=== PATIENT | female | born 1945 | race Caucasian/White ===

== ENCOUNTER 2018-05-30 03:44 | Outpatient (RCR) | payer MEDICARE, OTHER, SELFPAY | END 2018-05-30 23:59 | disposition home or self-care (01) | LOC: PRC 03:44 | PROVIDERS: PCP Physician Assistant Medical; Visit Provider Physician Assistant Medical | DX: J44.9 Chronic obstructive pulmonary disease, unspecified (principal); Z53.8 Procedure and treatment not carried out for other reasons ==

== ENCOUNTER → 2018-06-23 13:33 | Outpatient (BNVA) | payer MEDICARE, OTHER, SELFPAY | PROVIDERS: Visit Provider Student in an Organized Health Care Education/Training Program | DX: M70.62 Trochanteric bursitis, left hip (principal) | CPT/HCPCS: 20610; 99213; J1040 ==

== ENCOUNTER 2018-08-01 14:35 | Emergency (ER) | payer MEDICARE, OTHER, SELFPAY ==
[2018-08-01 14:52] VITALS: BP 126/60; PULSE 89; RESP 20; TEMP 36.7; O2SAT 97
--- NOTE | 2018-08-01 15:27 | DI.RAD_ITS ---
SYMPTOM/DIAGNOSIS: FELL, PAIN, FOREARM SWELLING RIGHT ANKLE: Three views. There is a nondisplaced transverse fracture through the medial malleolus. There is an oblique nondisplaced fracture of the distal fibula. On the lateral view, there does appear to be a nondisplaced fracture of the posterior malleolus. The findings are consistent with a trimalleolar fracture. The ankle joint is otherwise well maintained. The bones appear mildly osteopenic. There is soft tissue swelling about the ankle, particularly laterally. No radiopaque foreign bodies are seen in the soft tissues. IMPRESSION: Nondisplaced trimalleolar fracture of the right ankle. RIGHT FOREARM: Two views. No acute fracture or dislocation is seen. The bones appear mildly osteopenic. There is soft tissue swelling about the proximal forearm. No radiopaque foreign bodies are present. IMPRESSION: No acute fracture or dislocation.
--- NOTE | 2018-08-01 16:50 | DI.VRAD_ITS ---
EXAM: XR Right Ankle Complete, 3 or more Views EXAM DATE/TIME: 08/01/2018 3:29 PM CLINICAL HISTORY: 72 years old, female; Pain; Ankle; Right TECHNIQUE: XR Right ankle 3 or more views. COMPARISON: No relevant prior studies available. FINDINGS: Bones/joints: Nondisplaced oblique fracture of the distal fibula metaphysis. Nondisplaced transverse fracture of the medial malleolus. Nondisplaced fracture the posterior tibial malleolus. Mild osteopenia. Soft tissues: Swelling of the lateral ankle soft tissues. IMPRESSION: Nondisplaced trimalleolar fracture. Dictated and Authenticated by: Jarrell Biswas MD. Ordering:SANDRA REED MD
--- NOTE | 2018-08-01 16:51 | DI.VRAD_ITS ---
EXAM: XR Right Forearm, 2 Views EXAM DATE/TIME: 08/01/2018 3:29 PM CLINICAL HISTORY: 72 years old, female; Pain; Lower or forearm; Right TECHNIQUE: XR Right forearm 2 views. COMPARISON: No relevant prior studies available. FINDINGS: Bones/joints: Mild osteopenia. No acute fracture. Degenerative changes at the elbow and wrist. Soft tissues: Swelling of the proximal forearm soft tissues. IMPRESSION: No fracture. Dictated and Authenticated by: Jarrell Biswas MD. Ordering:SANDRA REED MD
--- NOTE | 2018-08-01 18:02 | ED.GENADUL_ITS ---
Discharge Plan Disposition Patient Disposition: HOME Condition: Stable Discharge Details Chief Complaint: Orthopedic Clinical Impression: Closed trimalleolar fracture of right ankle, Contusion of arm, right Primary Care Provider: Tom Fuchs ED Provider: Koby Blankenship Home Meds and New Rx's Prescriptions: Continue cyclosporine [Restasis] 1 EACH dropperette 1 drp Ophthalmic BID RF: 0 citalopram 10 MG tablet 10 mg PO DAILY RF: 0 mometasone-formoterol [Dulera] 8.8 GM HFA aerosol inhaler 2 puff Inhalation BID RF: 0 alendronate 70 MG tablet 1 tab PO DIRECTED RF: 0 glucosamine cervantes 2KCl-chondroit [Glucosamine Sulf-Chondroitin] 1 EACH capsule 1 cap PO DAILY RF: 0 tiotropium-olodaterol [Stiolto Respimat] 4 GM mist 2.5 gm Inhalation DAILY RF: 0 gabapentin 300 MG capsule 300 mg PO HS RF: 0 acetaminophen [Tylenol] 325 MG tablet 325 mg PO Q4H PRN PRNRF: 0 calcium carbonate [Oyster Shell Calcium 500] 1.25 GM tablet 0.5 gm PO DAILY RF: 0 chlorthalidone 25 mg Tablet 0.5 tab PO DAILY RF: 0 aspirin [Aspir-81] 81 mg Tablet,Delayed Release (Dr/Ec) 1 tab PO DAILY RF: 0 Discharge Instructions Instructions: Ankle Fracture (ED), Contusion in Adults (ED), Hematoma (ED) Additional Instructions: Please keep right lower extremity elevated. Keep a walking boot on at all times and remain nonweightbearing as much as possible. It is encouraged that you use a walker or other assistive device to prevent falls. Refer to return to the emergency department for any new or worsening symptoms. Referrals: Toino Aguilar MD [ [facility]FF [facility]YSICIAN] - (Call the office on Saturday morning for arrangement of follow-up appointment) Discharge Data Discharge Date/Time-TO BE ENTERED AT DEPARTURE: 08/01/18 18:39 Medical Decision Making Patient presenting to the emergency department for chief complaint of trip and fall with right ankle and right forearm swelling and pain. Patient states that pain is very minimal to no pain in the upper arm but the right ankle is only painful when she puts weight on it which she is unable to fully stand on it. Patient denies any other injury including head neck back pain chest pain shortness of breath or syncope. Physical exam is positive for significant ecchymosis to the proximal ulna and lateral malleolus tenderness ecchymosis and swelling. Plan to perform radiological imaging for concern of fracture. Review of forearm imaging shows no acute findings but review of ankle imaging shows nondisplaced trimalleolar fracture. Called and spoke with Dr. Aguilar whom recommended patient be placed in a walking boot due to other medical comorbidities and concern of possible fall with hip or worsening injury. He recommended that patient use a walker and remain nonweightbearing as much as possible but if patient felt like she was going to have a fall that she may put minimal weight on the foot to prevent falling. Patient stated that she was more than fine taking [id number] pain medication and stated that she did not want anything stronger at this time. Patient was encouraged to return for any new or worsening symptoms otherwise to call the orthopedic office on Saturday morning for arrangement of follow-up appointment. HPI General Mode of arrival: wheelchair . Date/Time Provider Initiated Documentation: 08/01/18 14:54 . Limitations to Documentation: no limitations . Information obtained by: patient and RN notes reviewed . History of Present Illness 72 year old F presents to the emergency department with the chief complaint of Ankle pain, described as moderate, with intensity rated at 5. Quality is described as sharp, and is localized to the right and lower extremity. Patient started experiencing this hour(s) (1) and it has been constant. Immobilization improves symptom(s), and Rest improves symptom(s), Movement worsens symptoms . Patient did receive the following treatments prior to arrival, none Related Data Home Medications Medication Instructions Recorded Confirmed alendronate 1 tab PO DIRECTED 05/10/14 08/01/18 glucosamine cervantes 2KCl-chondroit 1 cap PO DAILY 05/10/14 08/01/18 [Glucosamine Sulf-Chondroitin] tiotropium-olodaterol [Stiolto 2.5 gm INHALATION DAILY 03/06/17 08/01/18 Respimat] cyclosporine [Restasis] 1 drp OPHTHALMIC BID drp 05/15/17 08/01/18 citalopram 10 mg PO DAILY tab-cap 11/20/17 08/01/18 mometasone-formoterol [Dulera] 2 puff INHALATION BID inhaler 11/20/17 08/01/18 gabapentin 300 mg PO HS 01/05/18 08/01/18 acetaminophen [Tylenol] 325 mg PO Q4H PRN PRN tab 01/07/18 08/01/18 calcium carbonate [Oyster Shell 0.5 gm PO DAILY tab 01/07/18 08/01/18 Calcium 500] aspirin [Aspir-81] 1 tab PO DAILY 08/01/18 08/01/18 chlorthalidone 0.5 tab PO DAILY 08/01/18 08/01/18 Previous Rx's Medication Instructions Recorded acetaminophen [Tylenol] 325 mg PO Q4H PRN PRN tab 01/07/18 calcium carbonate [Oyster Shell 0.5 gm PO DAILY tab 01/07/18 Calcium 500] Allergies Allergy/AdvReac Type Severity Reaction Status Date / Time Sulfa (Sulfonamide Allergy Intermediate Hives Unverified 08/01/18 14:58 Antibiotics) General Stated Complaint: Orthopedic MOIRA: 4 Review of Systems Constitutional Reports system reviewed and no additional complaints, except as docu Cardiovascular Reports system reviewed and no additional complaints, except as docu Respiratory Reports system reviewed and no additional complaints, except as docu Musculoskeletal Reports as per HPI Neurologic Denies sensory deficit PFS Social History Smoking/Tobacco Use Status: Never Exam Const General: not in acute distress and not diaphoretic Orientation: alert, awake and oriented x3 Neck Neck: normal visual inspection, full ROM and nontender Resp Effort & Inspection: normal respiratory effort and able to speak in complete sentences Cardio Rate: regular rate Rhythm: regular rhythm Back/Spine/Pelvis Back: No back tenderness Extrem General: normal capillary refill Right upper extremity: full ROM, shoulder/upper arm Details: normal to inspection, elbow/forearm Details: tenderness Location: proximal forearm, normal ROM and ecchymosis (Proximal ulna), wrist Details: normal to inspection and hand Details: normal to inspection Right lower extremity: knee Details: normal to inspection; no tenderness, ankle Details: tenderness Location: of the lateral malleolus, swelling Details: laterally, abnormal ROM Details: pain with active ROM and ecchymosis (Patient will) and foot Details: normal capillary refill, normal to inspection and toes with normal ROM; no tenderness Course Vital Signs Temperature 36.7 C 08/01/18 14:52 Pulse 89 08/01/18 14:52 Respiratory Rate 20 11/02/18 14:52 Blood Pressure 126/60 08/01/18 14:52 Pulse Oximetry 97 08/01/18 14:52 Temperature 36.7 C 08/01/18 14:52 Temperature Source Temporal Artery Scan 08/01/18 14:52 Pulse 89 08/01/18 14:52 Respiratory Rate 20 08/01/18 14:52 Respiratory Effort Non-Labored 08/01/18 14:57 Blood Pressure 126/60 08/01/18 14:52 Blood Pressure Position Sitting 08/01/18 14:52 Pulse Oximetry 97 08/01/18 14:52 Oxygen Delivery Method Nasal Cannula 08/01/18 14:52 Oxygen Flow Rate 2 08/01/18 14:52 Pain Level 3 08/01/18 14:52
--- NOTE | 2018-08-03 14:30 | NUR.NOTE ---
Nursing Note: Patient called stating she is having increased pain on the bottom of her foot and could it be from the wrap is wrinkled. Spoke with Dr. Merari Quiñonez and called the patient back. Told here that it is possible that the wrap is wrinkled, it could be from the fracture. We would need to evaluate her to see what the problem is. She is welcome to return for us to look at it. Kailyn Mojica.
== END 2018-08-01 18:39 | disposition home or self-care (01) ==
PROVIDERS: Emergency Provider Nurse Practitioner Family; PCP Physician Assistant Medical
DX: S82.854A Nondisplaced trimalleolar fracture of right lower leg, initial encounter for closed fracture (principal); S40.021A Contusion of right upper arm, initial encounter; W01.0XXA Fall on same level from slipping, tripping and stumbling without subsequent striking against object, initial encounter
CPT/HCPCS: 27786; 99283; 73090; 73610; 99282; L4361

== ENCOUNTER 2018-08-03 15:29 | Emergency (ER) | payer MEDICARE, OTHER, SELFPAY ==
[2018-08-03 15:59] VITALS: BP 134/55; PULSE 98; RESP 18; O2SAT 97
--- NOTE | 2018-08-03 16:39 | W.ED.GENAD ---
Discharge Plan Disposition Patient Disposition: HOME Condition: Fair Discharge Details Chief Complaint: MATERIALS MGMT TECH Clinical Impression: Ankle fracture, Abrasion of labia Primary Care Provider: Tom Fuchs ED Provider: Jeaneth Eric Home Meds and New Rx's Prescriptions: Continue cyclosporine [Restasis] 1 EACH dropperette 1 drp Ophthalmic BID RF: 0 citalopram 10 MG tablet 10 mg PO DAILY RF: 0 mometasone-formoterol [Dulera] 8.8 GM HFA aerosol inhaler 2 puff Inhalation BID RF: 0 alendronate 70 MG tablet 1 tab PO DIRECTED RF: 0 glucosamine cervantes 2KCl-chondroit [Glucosamine Sulf-Chondroitin] 1 EACH capsule 1 cap PO DAILY RF: 0 tiotropium-olodaterol [Stiolto Respimat] 4 GM mist 2.5 gm Inhalation DAILY RF: 0 gabapentin 300 MG capsule 300 mg PO HS RF: 0 acetaminophen [Tylenol] 325 MG tablet 325 mg PO Q4H PRN PRNRF: 0 calcium carbonate [Oyster Shell Calcium 500] 1.25 GM tablet 0.5 gm PO DAILY RF: 0 chlorthalidone 25 mg Tablet 0.5 tab PO DAILY RF: 0 aspirin [Aspir-81] 81 mg Tablet,Delayed Release (Dr/Ec) 1 tab PO DAILY RF: 0 Discharge Instructions Instructions: Abrasion (ED) Additional Instructions: Encourage hydration. Encourage high protein diet. You have an abrasion to her external genitalia which is likely where your bleeding was coming from. However, if you notice increased bleeding, fever/chills abdominal pain, vaginal discharge or the new/worsening symptoms please seek care urgently once again this area clean. And no blood was noted in the vagina In regard to your ankle pain, please use the boot as instructed. You may remove this extra axis appear discussed. Encourage elevation. Please contact orthopedics as instructed tomorrow to schedule follow-up appointment. Referrals: Tom Fuchs PA [Primary Care Provider] - Discharge Data Discharge Date/Time-TO BE ENTERED AT DEPARTURE: 08/03/18 17:56 Medical Decision Making Patient is 72-year-old female, coming by her daughter, with chief complaint of blood noted when wiping perineal area as well as right-sided foot pain. Patient was seen here 2 days ago which time she was diagnosed with a ankle fracture. She feels at this point that the socket was placed in the boot is uncomfortable. She has been too nervous to attempt to replace this herself. She denies any altered sensation in the foot. Reports that her pain has improved in the ankle. Took one Aleve today which should help with her discomfort. No is able to open the boot, remove the sock and see where there is focal irritation from the ridges on the nonskid socks. Advised that she remove this at this time and replaced once home with a softer, flat her sock. I reinforced boot care reviewed with the patient how to be able to remove this and replace it at home. Exam is notable for large amount of ecchymosis or. The swelling seems to be vastly improved from previous description She also reports that she noted some blood while wiping today just prior to arrival. Is concerned this may have been vaginal. Denies seeing any blood in the urine. No blood in her bowel movement today. Denies any perineal discomfort. Did fall on this area when she suffered her ankle fracture but did not noted any blood until this time. Exam was performed, no blood is noted in the vaginal vault. However, at the 2 o'clock position exteriorly on the labia, I do note a very superficial abrasion that does have a small amount of blood was wiped with a gauze. She feels that she may have scratched herself with her fingernails. Most likely the source of the small amount of blood she noted on the toilet paper. I do not see any actual intravaginal discharge, no blood noted from cervix. No intravaginal lesions. Discussed findinsg with the patient. Advised on care for her abrasion. She believes that this was self inflicted. Advised on signs of infection. She will f/u with PCP. She was given strict precautions. Ankle care as previously advised, reinforced the care of the boot. All of her questions and concerns were addressed, she is in agreement with this plan. She will seek care urgently once again if she develops new/worsening symptoms. HPI General Mode of arrival: ambulatory. Date/Time Provider Initiated Documentation: 08/03/18 15:54. Limitations to Documentation: no limitations. Information obtained by: patient and family. History of Present Illness 72 year old F presents to the emergency department with the chief complaint of right foot pain, vaginal bleeding, described as mild, with intensity rated at 3. Quality is described as aching (reports that she feels like her sock is bunched in her boot causing discomfort ), and is localized to the right and lower extremity. Patient reports no radiation. Patient started experiencing this day(s) and it has been constant. No relieving factors improve symptom(s), No exacerbating factors reported . Patient notes denies cough, diaphoresis, fever/chills, headaches, nausea/vomiting, rash and shortness of breath. Patient did receive the following treatments prior to arrival, none Related Data Home Medications Medication Instructions Recorded Confirmed alendronate 1 tab PO DIRECTED 05/10/14 08/01/18 glucosamine cervantes 2KCl-chondroit 1 cap PO DAILY 05/10/14 08/01/18 [Glucosamine Sulf-Chondroitin] tiotropium-olodaterol [Stiolto 2.5 gm INHALATION DAILY 03/06/17 08/01/18 Respimat] cyclosporine [Restasis] 1 drp OPHTHALMIC BID drp 05/15/17 08/01/18 citalopram 10 mg PO DAILY tab-cap 11/20/17 08/01/18 mometasone-formoterol [Dulera] 2 puff INHALATION BID inhaler 11/20/17 08/01/18 gabapentin 300 mg PO HS 01/05/18 08/01/18 acetaminophen [Tylenol] 325 mg PO Q4H PRN PRN tab 01/07/18 08/01/18 calcium carbonate [Oyster Shell 0.5 gm PO DAILY tab 01/07/18 08/01/18 Calcium 500] aspirin [Aspir-81] 1 tab PO DAILY 08/01/18 08/01/18 chlorthalidone 0.5 tab PO DAILY 08/01/18 08/01/18 Previous Rx's Medication Instructions Recorded acetaminophen [Tylenol] 325 mg PO Q4H PRN PRN tab 01/07/18 calcium carbonate [Oyster Shell 0.5 gm PO DAILY tab 01/07/18 Calcium 500] Allergies Allergy/AdvReac Type Severity Reaction Status Date / Time Sulfa (Sulfonamide Allergy Intermediate Hives Unverified 08/01/18 14:58 Antibiotics) General Stated Complaint: MATERIALS MGMT TECH MOIRA: 4 Review of Systems Constitutional Reports as per HPI and Denies weakness Cardiovascular Denies chest pain and Denies dyspnea Respiratory Reports as per HPI, Denies cough and Denies dyspnea Gastrointestinal Denies abdominal pain, Denies change in bowel habits, Denies nausea and Denies vomiting Genitourinary Reports as per HPI, Denies hematuria, Denies urinary frequency, Denies difficulty voiding, Denies genital lesions, Denies dyspareunia, Denies dysuria, Denies flank pain, Denies urinary hesitancy, Denies urinary urgency and Reports vaginal discharge (patient notes scant amount of blood on tissue after wiping after urination, none in the urine. Feels this is from vaginal bleeding) Musculoskeletal Reports as per HPI, Denies back pain, Denies numbness and Denies tingling Integumentary/Breasts Reports as per HPI and Reports other (has large amount of ecchymosis to the right ankle and foot associated with recent trauma and fracture) Neurologic Denies numbness, Denies radicular pain, Denies tingling, Denies paresthesias and Denies weakness [facility] Social History Smoking/Tobacco Use Status: Never Exam Const General: cooperative, healthy appearing, comfortable, no acute distress, well developed and well groomed Nutritional Appearance: average body habitus and well nourished Orientation: alert and awake Resp Effort & Inspection: normal respiratory effort, able to speak in complete sentences and no respiratory distress Auscultation: clear to auscultation bilaterally, no rales, no rhonchi and no wheezes Cardio Rate: regular rate Rhythm: regular rhythm Heart Sounds: S1 normal and S2 normal GI Inspection: normal to inspection and non-distended Palpation: soft, no hepatosplenomegaly, no aortic enlargement, not firm, no guarding, not rigid and nontender Auscultation: normal bowel sounds External Female Exam: abnormal external appearance (patient has a 3mm superficial abrasion to the right side of the labia, this has a small amount of blood when cleansed with gauze), normal appearance of the urethra, no erythema, no tenderness externally, no external swelling, no lacerations, no ecchymosis and No urethral discharge Speculum Exam - Vagina: normal appearance of the vagina, vaginal discharge abnormal, atrophic vaginal mucosa, vaginal erythema, no lacerations, No vaginal bleeding, No tissue present in vagina, no masses, no swelling and nontender Speculum Exam - Cervix: normal appearance of the cervix Bimanual Exam- Vagina & Uterus: normal bimanual exam OB/External & Speculum: no tissue noted in vagina and No vaginal bleeding Back/Spine/Pelvis Back: no CVA tenderness Skin General skin exam: ecchymosis (has circumfrential ecchymosis to the right foot and ankle. ) Trauma: abrasion (as above to external genitalia) Neuro General: alert and awake Cognition: normal cognition Speech: speech normal Gait: gait abnormal (patient is NWB on right LE) Extrem General: abnormal to inspection (patient ecchymosis as above. Did not assess ROM as the patient has known fracture. 2+ distal pulses. The indentations from the non-slip socks are noted on the dorsum and the plantar aspect of the foot. ), normal capillary refill and no joint enlargement (swelling has come down from the lateral ankle, no swelling noted at this point) Psych Appearance: grossly normal and well kempt Mental Status: mental status grossly normal Speech and Movement: speech and movement normal Course Vital Signs Pulse 98 H 08/03/18 15:59 Respiratory Rate 18 08/03/18 15:59 Blood Pressure 134/55 L 08/03/18 15:59 Pulse Oximetry 97 08/03/18 15:59 Pulse 98 H 08/03/18 15:59 Respiratory Rate 18 08/03/18 15:59 Respiratory Effort Accessory Muscle Use 08/03/18 16:03 Blood Pressure 134/55 L 08/03/18 15:59 Blood Pressure Position Sitting 08/03/18 15:59 Pulse Oximetry 97 08/03/18 15:59 Oxygen Delivery Method Room Air 08/03/18 15:59 Oxygen Flow Rate 0 08/03/18 15:59
--- NOTE | 2018-08-03 16:44 | ED.GENADUL_ITS ---
Discharge Plan Disposition Patient Disposition: HOME Condition: Fair Discharge Details Chief Complaint: MERCHANDISE PLANNER Clinical Impression: Ankle fracture, Abrasion of labia Primary Care Provider: Tom Fuchs ED Provider: Jeaneth Eric Home Meds and New Rx's Prescriptions: Continue cyclosporine [Restasis] 1 EACH dropperette 1 drp Ophthalmic BID RF: 0 citalopram 10 MG tablet 10 mg PO DAILY RF: 0 mometasone-formoterol [Dulera] 8.8 GM HFA aerosol inhaler 2 puff Inhalation BID RF: 0 alendronate 70 MG tablet 1 tab PO DIRECTED RF: 0 glucosamine cervantes 2KCl-chondroit [Glucosamine Sulf-Chondroitin] 1 EACH capsule 1 cap PO DAILY RF: 0 tiotropium-olodaterol [Stiolto Respimat] 4 GM mist 2.5 gm Inhalation DAILY RF: 0 gabapentin 300 MG capsule 300 mg PO HS RF: 0 acetaminophen [Tylenol] 325 MG tablet 325 mg PO Q4H PRN PRNRF: 0 calcium carbonate [Oyster Shell Calcium 500] 1.25 GM tablet 0.5 gm PO DAILY RF: 0 chlorthalidone 25 mg Tablet 0.5 tab PO DAILY RF: 0 aspirin [Aspir-81] 81 mg Tablet,Delayed Release (Dr/Ec) 1 tab PO DAILY RF: 0 Discharge Instructions Instructions: Abrasion (ED) Additional Instructions: Encourage hydration. Encourage high protein diet. You have an abrasion to her external genitalia which is likely where your bleeding was coming from. However , if you notice increased bleeding, fever/chills abdominal pain, vaginal discharge or the new/worsening symptoms please seek care urgently once again this area clean. And no blood was noted in the vagina In regard to your ankle pain, please use the boot as instructed. You may remove this extra axis appear discussed. Encourage elevation. Please contact orthopedics as instructed tomorrow to schedule follow-up appointment. Referrals: Tom Fuchs PA [Primary Care Provider] - Discharge Data Discharge Date/Time-TO BE ENTERED AT DEPARTURE: 08/03/18 17:56 Medical Decision Making Patient is 72-year-old female, coming by her daughter, with chief complaint of blood noted when wiping perineal area as well as right-sided foot pain. Patient was seen here 2 days ago which time she was diagnosed with a ankle fracture. She feels at this point that the socket was placed in the boot is uncomfortable. She has been too nervous to attempt to replace this herself. She denies any altered sensation in the foot. Reports that her pain has improved in the ankle. Took one Aleve today which should help with her discomfort. No is able to open the boot, remove the sock and see where there is focal irritation from the ridges on the nonskid socks. Advised that she remove this at this time and replaced once home with a softer, flat her sock. I reinforced boot care reviewed with the patient how to be able to remove this and replace it at home. Exam is notable for large amount of ecchymosis or. The swelling seems to be vastly improved from previous description She also reports that she noted some blood while wiping today just prior to arrival. Is concerned this may have been vaginal. Denies seeing any blood in the urine. No blood in her bowel movement today. Denies any perineal discomfort. Did fall on this area when she suffered her ankle fracture but did not noted any blood until this time. Exam was performed, no blood is noted in the vaginal vault. However, at the 2 o 'clock position exteriorly on the labia, I do note a very superficial abrasion that does have a small amount of blood was wiped with a gauze. She feels that she may have scratched herself with her fingernails. Most likely the source of the small amount of blood she noted on the toilet paper. I do not see any actual intravaginal discharge, no blood noted from cervix. No intravaginal lesions. Discussed findinsg with the patient. Advised on care for her abrasion. She believes that this was self inflicted. Advised on signs of infection. She will f/u with PCP. She was given strict precautions. Ankle care as previously advised, reinforced the care of the boot. All of her questions and concerns were addressed, she is in agreement with this plan. She will seek care urgently once again if she develops new/worsening symptoms. HPI General Mode of arrival: ambulatory . Date/Time Provider Initiated Documentation: 08/03/18 15:54 . Limitations to Documentation: no limitations . Information obtained by: patient and family . History of Present Illness 72 year old F presents to the emergency department with the chief complaint of right foot pain, vaginal bleeding, described as mild, with intensity rated at 3. Quality is described as aching (reports that she feels like her sock is bunched in her boot causing discomfort ), and is localized to the right and lower extremity. Patient reports no radiation. Patient started experiencing this day(s) and it has been constant. No relieving factors improve symptom(s), No exacerbating factors reported . Patient notes denies cough, diaphoresis, fever/chills, headaches, nausea/vomiting, rash and shortness of breath. Patient did receive the following treatments prior to arrival, none Related Data Home Medications Medication Instructions Recorded Confirmed alendronate 1 tab PO DIRECTED 05/10/14 08/01/18 glucosamine cervantes 2KCl-chondroit 1 cap PO DAILY 05/10/14 08/01/18 [Glucosamine Sulf-Chondroitin] tiotropium-olodaterol [Stiolto 2.5 gm INHALATION DAILY 03/06/17 08/01/18 Respimat] cyclosporine [Restasis] 1 drp OPHTHALMIC BID drp 05/15/17 08/01/18 citalopram 10 mg PO DAILY tab-cap 11/20/17 08/01/18 mometasone-formoterol [Dulera] 2 puff INHALATION BID inhaler 11/20/17 08/01/18 gabapentin 300 mg PO HS 01/05/18 08/01/18 acetaminophen [Tylenol] 325 mg PO Q4H PRN PRN tab 01/07/18 08/01/18 calcium carbonate [Oyster Shell 0.5 gm PO DAILY tab 01/07/18 08/01/18 Calcium 500] aspirin [Aspir-81] 1 tab PO DAILY 08/01/18 08/01/18 chlorthalidone 0.5 tab PO DAILY 08/01/18 08/01/18 Previous Rx's Medication Instructions Recorded acetaminophen [Tylenol] 325 mg PO Q4H PRN PRN tab 01/07/18 calcium carbonate [Oyster Shell 0.5 gm PO DAILY tab 01/07/18 Calcium 500] Allergies Allergy/AdvReac Type Severity Reaction Status Date / Time Sulfa (Sulfonamide Allergy Intermediate Hives Unverified 08/01/18 14:58 Antibiotics) General Stated Complaint: MERCHANDISE PLANNER MOIRA: 4 Review of Systems Constitutional Reports as per HPI and Denies weakness Cardiovascular Denies chest pain and Denies dyspnea Respiratory Reports as per HPI, Denies cough and Denies dyspnea Gastrointestinal Denies abdominal pain, Denies change in bowel habits, Denies nausea and Denies vomiting Genitourinary Reports as per HPI, Denies hematuria, Denies urinary frequency, Denies difficulty voiding, Denies genital lesions, Denies dyspareunia, Denies dysuria, Denies flank pain, Denies urinary hesitancy, Denies urinary urgency and Reports vaginal discharge (patient notes scant amount of blood on tissue after wiping after urination, none in the urine. Feels this is from vaginal bleeding) Musculoskeletal Reports as per HPI, Denies back pain, Denies numbness and Denies tingling Integumentary/Breasts Reports as per HPI and Reports other (has large amount of ecchymosis to the right ankle and foot associated with recent trauma and fracture) Neurologic Denies numbness, Denies radicular pain, Denies tingling, Denies paresthesias and Denies weakness [facility] Social History Smoking/Tobacco Use Status: Never Exam Const General: cooperative, healthy appearing, comfortable, no acute distress, well developed and well groomed Nutritional Appearance: average body habitus and well nourished Orientation: alert and awake Resp Effort & Inspection: normal respiratory effort, able to speak in complete sentences and no respiratory distress Auscultation: clear to auscultation bilaterally, no rales, no rhonchi and no wheezes Cardio Rate: regular rate Rhythm: regular rhythm Heart Sounds: S1 normal and S2 normal GI Inspection: normal to inspection and non-distended Palpation: soft, no hepatosplenomegaly, no aortic enlargement, not firm, no guarding, not rigid and nontender Auscultation: normal bowel sounds External Female Exam: abnormal external appearance (patient has a 3mm superficial abrasion to the right side of the labia, this has a small amount of blood when cleansed with gauze), normal appearance of the urethra, no erythema, no tenderness externally, no external swelling, no lacerations, no ecchymosis and No urethral discharge Speculum Exam - Vagina: normal appearance of the vagina, vaginal discharge abnormal, atrophic vaginal mucosa, vaginal erythema, no lacerations, No vaginal bleeding, No tissue present in vagina, no masses, no swelling and nontender Speculum Exam - Cervix: normal appearance of the cervix Bimanual Exam- Vagina & Uterus: normal bimanual exam OB/External & Speculum: no tissue noted in vagina and No vaginal bleeding Back/Spine/Pelvis Back: no CVA tenderness Skin General skin exam: ecchymosis (has circumfrential ecchymosis to the right foot and ankle. ) Trauma: abrasion (as above to external genitalia) Neuro General: alert and awake Cognition: normal cognition Speech: speech normal Gait: gait abnormal (patient is NWB on right LE) Extrem General: abnormal to inspection (patient ecchymosis as above. Did not assess ROM as the patient has known fracture. 2+ distal pulses. The indentations from the non-slip socks are noted on the dorsum and the plantar aspect of the foot. ), normal capillary refill and no joint enlargement (swelling has come down from the lateral ankle, no swelling noted at this point) Psych Appearance: grossly normal and well kempt Mental Status: mental status grossly normal Speech and Movement: speech and movement normal Course Vital Signs Pulse 98 H 08/03/18 15:59 Respiratory Rate 18 08/03/18 15:59 Blood Pressure 134/55 L 08/03/18 15:59 Pulse Oximetry 97 08/03/18 15:59 Pulse 98 H 08/03/18 15:59 Respiratory Rate 18 08/03/18 15:59 Respiratory Effort Accessory Muscle Use 08/03/18 16:03 Blood Pressure 134/55 L 08/03/18 15:59 Blood Pressure Position Sitting 08/03/18 15:59 Pulse Oximetry 97 08/03/18 15:59 Oxygen Delivery Method Room Air 08/03/18 15:59 Oxygen Flow Rate 0 08/03/18 15:59
== END 2018-08-03 17:56 | disposition home or self-care (01) ==
PROVIDERS: Emergency Provider Physician Assistant; PCP Physician Assistant Medical
DX: S30.814A Abrasion of vagina and vulva, initial encounter (principal); S82.854A Nondisplaced trimalleolar fracture of right lower leg, initial encounter for closed fracture; W01.0XXA Fall on same level from slipping, tripping and stumbling without subsequent striking against object, initial encounter; Z46.89 Encounter for fitting and adjustment of other specified devices; Y84.8 Other medical procedures as the cause of abnormal reaction of the patient, or of later complication, without mention of misadventure at the time of the procedure; J44.9 Chronic obstructive pulmonary disease, unspecified
CPT/HCPCS: 99284; 99283

== ENCOUNTER 2018-08-11 14:09 | Outpatient (CLI) | payer MEDICARE, OTHER, SELFPAY ==
--- NOTE | 2018-08-11 14:05 | DI.RAD_ITS ---
SYMPTOM/DIAGNOSIS: RT TRIMAL ANKLE FX RIGHT ANKLE: Three views. Comparison 08/01/18 There has been no change in alignment of the nondisplaced fractures involving the distal right fibula and medial malleolus. No new fractures or dislocations are seen. The ankle joint appears stable. The soft tissues are unremarkable. IMPRESSION: Stable fractures involving the distal tibia and fibula as described above.
== END 2018-08-11 14:29 ==
PROVIDERS: PCP Physician Assistant Medical; Referring Provider Physician Assistant Medical; Visit Provider Student in an Organized Health Care Education/Training Program
DX: S82.851A Displaced trimalleolar fracture of right lower leg, initial encounter for closed fracture (principal); W01.0XXA Fall on same level from slipping, tripping and stumbling without subsequent striking against object, initial encounter; Z99.81 Dependence on supplemental oxygen
CPT/HCPCS: 99214; 73610

== ENCOUNTER 2018-08-25 14:25 | Outpatient (CLI) | payer MEDICARE, OTHER, SELFPAY ==
--- NOTE | 2018-08-25 14:07 | DI.RAD_ITS ---
SYMPTOM/DIAGNOSIS: ANKLE FRACTURE RIGHT ANKLE: Comparison is made with 11 Aug 2018. There has been no change in the alignment of the medial and lateral malleolar fractures. It shows some interval healing when compared with the previous exam.
== END 2018-08-25 14:45 ==
PROVIDERS: PCP Physician Assistant Medical; Referring Provider Physician Assistant Medical; Visit Provider Student in an Organized Health Care Education/Training Program
DX: S82.841D Displaced bimalleolar fracture of right lower leg, subsequent encounter for closed fracture with routine healing (principal); W01.0XXD Fall on same level from slipping, tripping and stumbling without subsequent striking against object, subsequent encounter
CPT/HCPCS: 99213; 73610

== ENCOUNTER 2018-09-15 13:24 | Outpatient (CLI) | payer MEDICARE, OTHER, SELFPAY ==
--- NOTE | 2018-09-15 13:20 | DI.RAD_ITS ---
SYMPTOM/DIAGNOSIS: RT ANKLE FX RIGHT ANKLE: Healing fractures of the medial lateral malleoli are demonstrated with no change in position of the fracture components. There is nothing to suggest that healing is not progressing satisfactorily at the present time.
== END 2018-09-15 13:44 ==
PROVIDERS: PCP Physician Assistant Medical; Referring Provider Physician Assistant Medical; Visit Provider Student in an Organized Health Care Education/Training Program
DX: S82.841D Displaced bimalleolar fracture of right lower leg, subsequent encounter for closed fracture with routine healing (principal); W01.0XXD Fall on same level from slipping, tripping and stumbling without subsequent striking against object, subsequent encounter
CPT/HCPCS: 99213; 73610

== ENCOUNTER 2018-10-15 13:32 | Outpatient (CLI) | payer MEDICARE, OTHER, SELFPAY ==
--- NOTE | 2018-10-15 13:29 | DI.RAD_ITS ---
SYMPTOMS/DIAGNOSIS: F/U RIGHT ANKLE FRACTURE RIGHT ANKLE: Comparison is made with August,. There has been continued healing of the previously noted bimalleolar fractures. The bones again appear osteopenic from disuse. No new abnormalities are seen.
== END 2018-10-15 13:52 ==
PROVIDERS: PCP Physician Assistant Medical; Referring Provider Physician Assistant Medical; Visit Provider Student in an Organized Health Care Education/Training Program
DX: S82.851D Displaced trimalleolar fracture of right lower leg, subsequent encounter for closed fracture with routine healing (principal); W01.0XXD Fall on same level from slipping, tripping and stumbling without subsequent striking against object, subsequent encounter
CPT/HCPCS: 99213; 73610; L1902

== ENCOUNTER → 2018-12-03 13:19 | Outpatient (BNVA) | payer MEDICARE, OTHER, SELFPAY | PROVIDERS: PCP Physician Assistant Medical; Referring Provider Physician Assistant Medical; Visit Provider Student in an Organized Health Care Education/Training Program | DX: S82.851D Displaced trimalleolar fracture of right lower leg, subsequent encounter for closed fracture with routine healing (principal); W01.0XXD Fall on same level from slipping, tripping and stumbling without subsequent striking against object, subsequent encounter | CPT/HCPCS: 99213 ==

== ENCOUNTER 2019-01-12 13:52 | Outpatient (REF) | payer MEDICARE, OTHER, SELFPAY ==
[2019-01-12 21:44] LABS: ALT 21 U/L (12-78); AST 18 U/L (15-37); Albumin 3.6 g/dL (3.4-5.0); Alkaline Phosphatase 54 U/L (46-116); Anion Gap 4.8 mmol/L (3-11); BUN 11 mg/dL (7-18); Bilirubin, Total 0.3 mg/dL (0.2-1.0); CO2 36.2 mmol/L (21.0-32.0); CREATININE 0.68 mg/dL (0.55-1.02); Calcium 9.6 mg/dL (8.5-10.1); Chloride 95 mmol/L (98-107); Cholesterol 290 mg/dL (50-200); Glucose 88 mg/dL (70-100); HDL Cholesterol 86 mg/dL (40-60); LDL CHOLESTEROL 175 mg/dL (<100); Potassium 3.9 mmol/L (3.5-5.1); Sodium 136 mmol/L (136-145); Total Protein 6.9 g/dL (6.4-8.2); Triglyceride 64 mg/dL (30-150)
[2019-01-12 22:29] LABS: Hemoglobin A1C 5.7 % (4.5-6.2)
== END 2019-01-12 14:12 ==
LOC: NCHCN 13:52
PROVIDERS: PCP Physician Assistant Medical; Visit Provider Physician Assistant Medical
DX: I65.29 Occlusion and stenosis of unspecified carotid artery (principal); I10 Essential (primary) hypertension; R73.09 Other abnormal glucose
CPT/HCPCS: 80053; 80061; 83721; 83036

== ENCOUNTER 2019-01-20 01:08 | Outpatient (CLI) | payer MEDICARE, OTHER, SELFPAY ==
--- NOTE | 2019-01-20 13:06 | DI.RAD_ITS ---
SYMPTOMS/DIAGNOSIS: OSTEOPOROSIS, M81.0 DEXA SCAN WITH NEYMAR: The NEYMAR image shows no evidence of compression fractures. The bone mineral density measurements correspond to a total T score of -2.2, consistent with osteopenia. This is not significantly changed from most recent exam of 2016. There has been a 3% increase when compared with the baseline exam of 2004. The bone mineral density measurements of the left hip correspond to a total T score of -2.5 and a femoral neck T score of -2.7, in the osteoporotic range. There has been no significant change from 2016. There has been a 7.0% decrease when compared with 2004. The bone mineral density measurements of the left forearm correspond to a T score of the distal third of -1.8. This is a 4.5% decrease when compared with 2016 and a 9.3% decrease when compared with 2010. IMPRESSION: Osteoporosis of the left hip. Osteopenia of the lumbar spine and left forearm with mild decrease in bone density over time.
--- NOTE | 2019-01-20 14:50 | DI.MAMMO_ITS ---
SYMPTOM/DIAGNOSIS: SCREENING, PERSONAL H/O BREAST CA, Z85.3 MAMMOGRAMS: Mammograms were interpreted according to the usual protocol including computer analysis with CAD system, tomosynthesis and C view imaging. Comparison is made with exams from [id number]. The breasts are composed of heterogeneous fibroglandular tissue, breast density, Category C. The patient is status post right lumpectomy and radiation. Skin thickening is again noted. No suspicious masses or suspicious microcalcifications are seen. There has been no change in either breast. IMPRESSION: Category 2, negative mammogram with benign findings. Yearly screening mammography is recommended. [facility] ASSESSMENT OF FINDINGS: Negative with benign findings. Category 2. Patient will receive a letter notifying them of these results. Bi-RADS category C. The breasts are heterogeneously dense, which may obscure small masses.
== END 2019-01-20 01:28 ==
PROVIDERS: PCP Physician Assistant Medical; Visit Provider Physician Assistant Medical
DX: M81.0 Age-related osteoporosis without current pathological fracture (principal); M85.88 Other specified disorders of bone density and structure, other site; Z12.31 Encounter for screening mammogram for malignant neoplasm of breast; Z85.3 Personal history of malignant neoplasm of breast; Z98.890 Other specified postprocedural states; Z92.3 Personal history of irradiation
CPT/HCPCS: 77063; 77067; 77080

== ENCOUNTER 2019-04-22 22:27 | Outpatient (REF) | payer MEDICARE, OTHER, SELFPAY ==
[2019-04-22 21:43] LABS: ALT 27 U/L (12-78); AST 22 U/L (15-37); Albumin 3.7 g/dL (3.4-5.0); Alkaline Phosphatase 56 U/L (46-116); Anion Gap 6.6 mmol/L (3-11); BUN 10 mg/dL (7-18); Bilirubin, Total 0.3 mg/dL (0.2-1.0); CO2 34.4 mmol/L (21.0-32.0); CREATININE 0.65 mg/dL (0.55-1.02); Calcium 9.3 mg/dL (8.5-10.1); Calculated LDL 101 mg/dL; Chloride 97 mmol/L (98-107); Cholesterol 197 mg/dL (50-200); Glucose 99 mg/dL (70-100); HDL Cholesterol 84 mg/dL (40-60); Sodium 138 mmol/L (136-145); Total Protein 6.6 g/dL (6.4-8.2); Triglyceride 63 mg/dL (30-150)
== END 2019-04-22 22:47 ==
LOC: NCHCN 22:27
PROVIDERS: PCP Physician Assistant Medical; Visit Provider Physician Assistant Medical
DX: E78.5 Hyperlipidemia, unspecified (principal)
CPT/HCPCS: 80053; 80061; 83721

== ENCOUNTER 2020-03-16 19:43 | Outpatient (REF) | payer MEDICARE, OTHER, SELFPAY | END 2020-03-16 20:03 | LOC: NCHCN 19:43 | PROVIDERS: PCP Physician Assistant Medical; Visit Provider Physician Assistant Medical | DX: N39.0 Urinary tract infection, site not specified (principal) | CPT/HCPCS: 87077; 87086; 87186 ==

== ENCOUNTER 2020-06-29 13:20 | Outpatient (REF) | payer MEDICARE, OTHER, SELFPAY | END 2020-06-29 13:40 | LOC: NCHCN 13:20 | PROVIDERS: PCP Physician Assistant Medical; Visit Provider Physician Assistant Medical | DX: R35.0 Frequency of micturition (principal) | CPT/HCPCS: 87077; 87086; 87186 ==

== ENCOUNTER 2020-07-04 18:44 | Outpatient (REF) | payer MEDICARE, OTHER, SELFPAY ==
[2020-07-04 20:21] LABS: ALT 19 U/L (14-59); AST 19 U/L (15-37); Albumin 3.6 g/dL (3.4-5.0); Alkaline Phosphatase 56 U/L (46-116); Anion Gap 0.5 mmol/L (3-11); BUN 10 mg/dL (7-18); Bilirubin, Total 0.2 mg/dL (0.2-1.0); CO2 38.5 mmol/L (21.0-32.0); CREATININE 0.64 mg/dL (0.55-1.02); Calcium 9.3 mg/dL (8.5-10.1); Calculated LDL 179 mg/dL (<100); Chloride 98 mmol/L (98-107); Cholesterol 283 mg/dL (<200); Glucose 82 mg/dL (74-106); HDL Cholesterol 87 mg/dL (40-60); Potassium 3.8 mmol/L (3.5-5.1); Sodium 137 mmol/L (136-145); Total Protein 6.9 g/dL (6.4-8.2); Triglyceride 87 mg/dL (<150)
[2020-07-04 20:23] LABS: Hemoglobin A1C 5.4 % (<5.7)
== END 2020-07-04 19:04 ==
LOC: NCHCN 18:44
PROVIDERS: PCP Physician Assistant Medical; Visit Provider Physician Assistant Medical
DX: I10 Essential (primary) hypertension (principal); E78.5 Hyperlipidemia, unspecified; R73.03 Prediabetes
CPT/HCPCS: 80053; 80061; 83036

== ENCOUNTER 2020-10-17 16:20 | Outpatient (REF) | payer MEDICARE, OTHER, SELFPAY | END 2020-10-17 16:40 | LOC: NCHCN 16:20 | PROVIDERS: PCP Physician Assistant Medical; Visit Provider Nurse Practitioner Family | DX: N39.0 Urinary tract infection, site not specified (principal) | CPT/HCPCS: 87077; 87086; 87186 ==

== ENCOUNTER 2020-10-31 15:38 | Outpatient (REF) | payer MEDICARE, OTHER, SELFPAY ==
[2020-10-31 15:51] LABS: ALT 25 U/L (14-59); AST 20 U/L (15-37); Albumin 3.5 g/dL (3.4-5.0); Alkaline Phosphatase 62 U/L (46-116); Anion Gap 2.9 mmol/L (3-11); BUN 10 mg/dL (7-18); Bilirubin, Total 0.4 mg/dL (0.2-1.0); CO2 36.1 mmol/L (21.0-32.0); Calcium 9.3 mg/dL (8.5-10.1); Calculated LDL 95 mg/dL (<100); Chloride 93 mmol/L (98-107); Cholesterol 200 mg/dL (<200); Glucose 94 mg/dL (74-106); HDL Cholesterol 95 mg/dL (40-60); Potassium 3.6 mmol/L (3.5-5.1); Sodium 132 mmol/L (136-145); Triglyceride 50 mg/dL (<150)
[2020-10-31 16:09] LABS: Bilirubin Negative (Negative); Blood Negative (Negative); Clarity Clear (Clear); Glucose Negative (Negative); Ketones Negative (Negative); Leukocyte Esterase Small (Negative); Nitrite Negative (Negative); Urobilinogen 0.2 EU/dL (Up TO 0.2)
[2020-10-31 16:10] LABS: CREATININE 0.7 mg/dL (0.55-1.02); Total Protein 7.2 g/dL (6.4-8.2)
[2020-10-31 16:20] LABS: Bacteria Moderate HPF (Negative); C & S Indicated? Yes; Casts Negative LPF (Negative); Crystals Negative HPF (Negative); Epithelial Cells Few HPF (Negative); Mucus Negative (Negative); RBC 0-2 HPF (0-2)
== END 2020-10-31 15:58 ==
LOC: NCHCN 15:38
PROVIDERS: PCP Physician Assistant Medical; Visit Provider Physician Assistant Medical
DX: R10.9 Unspecified abdominal pain (principal); N39.0 Urinary tract infection, site not specified; E78.5 Hyperlipidemia, unspecified; I10 Essential (primary) hypertension
CPT/HCPCS: 80053; 80061; 87077; 81003; 81015; 87086; 87186

== ENCOUNTER 2021-01-02 13:19 | Outpatient (REF) | payer MEDICARE, OTHER, SELFPAY | END 2021-01-02 13:20 | disposition home or self-care (01) | LOC: NCHCN 13:19 | PROVIDERS: PCP Physician Assistant Medical; Visit Provider Physician Assistant Medical | DX: N39.0 Urinary tract infection, site not specified (principal) | CPT/HCPCS: 87077; 87086; 87186 ==

== ENCOUNTER → 2021-02-02 12:48 | Outpatient (BNVA) | payer MEDICARE, OTHER, SELFPAY | PROVIDERS: PCP Physician Assistant Medical; Referring Provider Physician Assistant Medical; Visit Provider Nurse Practitioner Gerontology | DX: N39.0 Urinary tract infection, site not specified (principal); J44.9 Chronic obstructive pulmonary disease, unspecified; N95.2 Postmenopausal atrophic vaginitis | CPT/HCPCS: 81003; 99215; G2212 ==

== ENCOUNTER → 2021-04-20 08:12 | Outpatient (BNVA) | payer MEDICARE, OTHER, SELFPAY | PROVIDERS: PCP Physician Assistant Medical; Referring Provider Physician Assistant Medical; Visit Provider Nurse Practitioner Gerontology | DX: N39.0 Urinary tract infection, site not specified (principal) | CPT/HCPCS: 99213 ==

== ENCOUNTER → 2021-07-18 12:42 | Outpatient (BNVA) | payer MEDICARE, OTHER, SELFPAY | PROVIDERS: PCP Physician Assistant Medical; Referring Provider Physician Assistant Medical; Visit Provider Nurse Practitioner Gerontology | DX: N39.0 Urinary tract infection, site not specified (principal); Z79.899 Other long term (current) drug therapy | CPT/HCPCS: 99213 ==

== ENCOUNTER 2021-10-04 10:48 | Outpatient (REF) | payer MEDICARE, OTHER, SELFPAY ==
[2021-10-04 12:49] LABS: Hemoglobin A1C 5.5 % (<5.7)
== END 2021-10-04 10:49 | disposition home or self-care (01) ==
LOC: NCHCN 10:48
PROVIDERS: PCP Physician Assistant Medical; Visit Provider Physician Assistant Medical
DX: R73.03 Prediabetes (principal)
CPT/HCPCS: 83036

== ENCOUNTER 2022-01-09 12:00 | Emergency (ER) | payer MEDICARE, OTHER, SELFPAY ==
--- OUTSIDE RECORDS SUMMARY | 2022-01-09 12:18 | XMS_ITS ---
:1945 Author Care Team Providers Name Role Phone MAVERICK VASQUES Primary Care Provider [phone] [facility] Primary Care Provider [phone] Allergies Code Code System Name Reaction Severity Status Onset Sulfa ? ? Active ? (Sulfonamid e Antibiotics ) Medications Name Status Start Date Stop Date ? ? alendronate 70 mg tablet Active ? Not michaela ilable TAKE 1 TABLET BY MOUTH EVERY WEEK alendronate sodium 70 mg tabs Active ? No t available Anoro Ellipta 62.5 mcg-25 mcg/actuation powder for inhalatio n Completed 09/12/2016 06/12/2017 1 (one) Puff Puff: qd - daily atorvastatin 10 mg tablet Active ? Not av ailable TAKE 1 TABLET BY MOUTH AT BEDTIME atorvastatin calcium 10 mg tabs Active ? Not available Breo Ellipta 200 mcg-25 mcg/dose powder for inhalation Completed 09/12/2016 06/12/2017 1 (one) Puff Puff: daily Calcium 600 Active ? Not available cephalexin 500 mg capsule Active ? Not av ailable TAKE 1 CAPSULE BY MOUTH TWICE DAILY chlorthalidone 25 mg tablet Active ? Not available TAKE 1/2 TABLET BY MOUTH DAILY chlorthalidone 25 mg tabs Active ? Not av ailable citalopram 10 mg tablet Active ? Not avai lable TAKE 1 TABLET BY MOUTH DAILY citalopram hydrobromide 10 mg Active ? No t available tabs Dulera 200 mcg-5 mcg/actuation Active ? N ot available HFA aerosol inhaler erythromycin 5 mg/gm oint Completed ? 2018 gabapentin 300 mg caps Active ? Not avail able gabapentin 300 mg capsule Active ? Not av ailable TAKE 1 CAPSULE BY MOUTH AT BEDTIME mirtazapine 7.5 mg tablet Active ? Not av ailable TAKE 1 TABLET BY MOUTH AT BEDTIME nitrofurantoin monohydrate/macrocrystals 100 mg capsule Active ? Not available TAKE 1 CAPSULE BY MOUTH TWICE DAILY nystatin 100,000 unit/mL oral suspension Active ? Not available SWISH 5 MLS FOR 2 MINUTES BEFORE SWALLOWING QID Restasis Active ? Not available Restasis 0.05 % eye drops in a Active ? N ot available dropperette Stiolto Respimat 2.5 mcg-2.5 Active ? Not available mcg/actuation solution for inhalation tobramycin/dexamethasone 0.3-0.1 Completed ? 06/26/2019 % susp Problems Name Status Onset Date Source ? [id number] Deficiency Unknown ? H istory Bronchiectasis Active ? History Chronic Obstructive Lung Disease Active ? History Procedure by Method Active ? History Procedures None recorded. Results Lab Results None recorded. Past Encounters None recorded. Social History Tobacco Smoking Status Never Smoker Vaccine List Vaccine Type influenza, seasonal, injectable 07/21/2009 07/25/2010 07/20/2011 07/23/2012 06/16/2013 07/04/2015 pneumococcal conjugate PCV 13 12/09/2014 Tdap 12/09/2008 Plan of Care Reminders Provider Appointments None ? ? recorded. Lab None ? ? recorded. Referral None ? ? recorded. Procedures None ? ? recorded. Surgeries None ? ? recorded. Imaging None ? ? recorded. Vitals 06/26/2019 11:15AM Office 30 Height Weight BMI Blood Pressure 157.48 cm 40.3 kg 16.3 kg/m2 138/60 mm[Hg] 08/09/2017 Height Weight Blood Pressure 154.94 cm 43.57 kg 142/78 mm[Hg] 06/12/2017 Height Weight Blood Pressure 154.94 cm 43.91 kg 140/58 mm[Hg] 02/01/2017 Height Weight Blood Pressure 154.94 cm 46.33 kg 110/58 mm[Hg] 06/27/2016 Height Weight Blood Pressure 154.94 cm 44.71 kg 118/48 mm[Hg] 03/07/2016 Height Weight Blood Pressure 154.94 cm 44.96 kg 116/60 mm[Hg] 02/03/2016 Height Weight Blood Pressure 154.94 cm 45.05 kg 114/58 mm[Hg]
[2022-01-09 12:34] VITALS: BP 120/40; PULSE 87; RESP 20; TEMP 37.1; O2SAT 98
--- NOTE | 2022-01-09 13:30 | DI.RAD_ITS ---
Exam(s) XR RIBS RT W PA LAT CHEST EXAM: XR RIBS RT W PA LAT CHEST CLINICAL HISTORY: rt posterior rib pain and tenderness, fall yesterd TECHNIQUE: 2D digital imaging was performed.Five images were obtained. COMPARISON: CR CHEST 2 VIEWS PA,LAT from 01/05/2018 FINDINGS: MEDIASTINUM: Normal. HEART: Normal. PULMONARY VASCULATURE: Normal. LUNGS: Clear. PLEURAL SPACE: No pleural effusion or pneumothorax. BONE:There are old healed left rib fractures. RIGHT RIBS: Normal. OTHER FINDINGS:Normal. IMPRESSION: 1. No acute pulmonary findings. 2. No displaced right rib fractures. DATA REPOSITORY: RADIATION DOSE DELIVERED:
--- NOTE | 2022-01-09 13:30 | DI.RAD_ITS ---
Exam(s) XR THORACIC SPINE COMPLETE EXAM: XR THORACIC SPINE COMPLETE CLINICAL HISTORY: fall, pain, tender T3-4. TECHNIQUE: 2D digital imaging was performed of the thoracic spine. Three views were obtained. AP, swimmer's and lateral views were obtained. COMPARISON: No exams were available for comparison FINDINGS: BONES: There is no fracture or destructive lesion. The vertebral bodies and posterior elements are un remarkable. DISKS:Alignment is within normal limits. Interverebral disc spaces are maintained. SOFT TISSUE: Visualized lungs are clear. IMPRESSION: No acute fractures or subluxations. DATA REPOSITORY: RADIATION DOSE DELIVERED:
[2022-01-09] MEDS: Acetaminophen 325 MG TAB 650 MG PO (13:51)
[2022-01-09] MEDS: Lidocaine 5% Patch 1 PATCH TP (13:51)
--- NOTE | 2022-01-09 14:53 | W.ED.GENAD ---
Discharge Plan Disposition Patient Disposition: HOME Condition: Stable Discharge Details Clinical Impression: Fall, Contusion of rib on right side Primary Care Provider: Tom Fuchs ED Provider: Alfredo Quiñonez Home Meds and New Rx's Prescriptions: Continued (DME) Oxygen Tank See Rx Instructions .ROUTE .MEDSUPPLY Qty: 1 0RF Rx Instructions: As directed, continue oxygen on exertion and at HS. azithromycin 250 mg tablet 250 mg PO DAILY Qty: 36 8RF cyclosporine [Restasis] 1 EACH dropperette 1 drp Ophthalmic BID 0RF citalopram 10 MG tablet 10 mg PO DAILY 0RF atorvastatin 10 mg tablet 10 mg PO DAILY 0RF mirtazapine 7.5 mg tablet 7.5 mg PO QHS 0RF Premarin 0.625 mg/gram cream 0.625 mg vaginal DAILY 0RF Rx Instructions: off 5 days; repeat cycle Dulera 100-5 mcg/actuation HFA aerosol inhaler 2 puff inhalation BID Qty: 1 5RF Spiriva Respimat 2.5 mcg/actuation mist 2 puff inhalation DAILY Qty: 1 5RF alendronate 70 MG tablet 1 tab PO DIRECTED 0RF Glucosamine Sulf-Chondroitin 1 EACH capsule 1 cap PO DAILY 0RF Label Comments: 05/15/17-PT STATES TAKING 1 TAB BID gabapentin 300 MG capsule 300 mg PO HS 0RF calcium carbonate [Oyster Shell Calcium 500] 1.25 GM tablet 0.5 gm PO DAILY 0RF chlorthalidone 25 mg Tablet 0.5 tab PO DAILY 0RF aspirin [Aspir-81] 81 mg Tablet,Delayed Release (Dr/Ec) 1 tab PO DAILY 0RF Discharge Instructions Additional Instructions: Please take acetaminophen (tylenol) - 650mg every 6 hours by mouth as needed for pain. Use lidocaine patches. Dose according to label. Use naproxen for pain. Dose according to label. Please contact your primary care physician to arrange follow-up. Return to the ER immediately for any worsening or new concerning symptoms. Referrals: Tom Fuchs PA [Primary Care Provider] - Discharge Data Discharge Date/Time-TO BE ENTERED AT DEPARTURE: 01/09/22 15:38 Medical Decision Making 36-year-old female here after slip and fall yesterday with pain in her right posterior ribs and right thoracic paraspinal. Patient neurovascular intact. Saturating well. Clear breath sounds bilaterally. Consider fracture. Lidocaine patch was placed. Tylenol was given. xray thoracic spine interpreted by radiologist: Negative for fracture xray ribs interpreted by radiologist: IMPRESSION: 1. No acute pulmonary findings. 2. No displaced right rib fractures.? Suspect rib contusion. Usual and customary discharge instructions were reviewed with patient. HPI General Mode of arrival: ambulatory. Date/Time Provider Initiated Documentation: 01/09/22 13:37. Limitations to Documentation: no limitations. Information obtained by: patient. HPI Narrative: 36-year-old female here after slip and fall yesterday presenting with chief complaint of pain in her right mid upper back. Patient notes she slipped on a ramp and landed on her right side. She did not hit her head or lose consciousness. Pain has been constant. No associated numbness or tingling. No abdominal pain. No shortness of breath. No hematuria. Related Data Home Medications Medication Instructions Recorded Confirmed alendronate 70 mg tablet 1 tab PO DIRECTED 05/10/14 01/09/22 glucosamine sulfate dipotassium Cl 1 cap PO DAILY 05/10/14 01/09/22 500 mg-chondroitin 400 mg capsule (Glucosamine Sulfate 2 KCL-Chondroitin) cyclosporine 0.05 % eye drops in a 1 drp OPHTHALMIC BID drp 05/15/17 01/09/22 dropperette (Restasis) citalopram 10 mg tablet 10 mg PO DAILY tab-cap 11/20/17 01/09/22 gabapentin 300 mg capsule 300 mg PO HS 01/05/18 01/09/22 calcium carbonate 500 mg calcium 0.5 gm PO DAILY tab 01/07/18 01/09/22 (1,250 mg) tablet (Oyster Shell Calcium 500) aspirin 81 mg tablet,delayed 1 tab PO DAILY 08/01/18 01/09/22 release (Aspir-) chlorthalidone 25 mg tablet 0.5 tab PO DAILY 08/01/18 01/09/22 atorvastatin 10 mg tablet 10 mg PO DAILY 01/13/21 01/09/22 mirtazapine 7.5 mg tablet 7.5 mg PO QHS 01/13/21 01/09/22 conjugated estrogens 0.625 mg/gram 0.625 mg VAGINAL DAILY 02/20/21 01/09/22 vaginal cream (Premarin) Oxygen #1 ea 04/19/21 11/21/21 azithromycin 250 mg tablet 250 mg PO DAILY #36 tab 05/23/21 01/09/22 mometasone-formoterol HFA 100 2 puff INHALATION BID #1 inh 06/07/21 01/09/22 mcg-5 mcg/actuation aerosol inhaler (Dulera) tiotropium bromide 2.5 2 puff INHALATION DAILY #1 inh 06/07/21 01/09/22 mcg/actuation mist for inhalation (Spiriva Respimat) Previous Rx's Medication Instructions Recorded calcium carbonate 500 mg calcium 0.5 gm PO DAILY tab 01/07/18 (1,250 mg) tablet (Oyster Shell Calcium 500) azithromycin 250 mg tablet 250 mg PO DAILY #36 tab 05/23/21 mometasone-formoterol HFA 100 2 puff INHALATION BID #1 inh 06/07/21 mcg-5 mcg/actuation aerosol inhaler (Dulera) tiotropium bromide 2.5 2 puff INHALATION DAILY #1 inh 06/07/21 mcg/actuation mist for inhalation (Spiriva Respimat) Allergies Allergy/AdvReac Type Severity Reaction Status Date / Time Sulfa (Sulfonamide Allergy Intermediate Hives Unverified 01/09/22 13:47 Antibiotics) General Stated Complaint: Orthopedic MOIRA: 3 PFSH All Active Problems (Updated 01/09/22 @ 15:37 by Alfredo Quiñonez MD) Fall (Acute) Contusion of rib on right side (Acute) Bronchiolitis obliterans (Acute) Recurrent urinary tract infection (Acute) Closed trimalleolar fracture of right ankle (Acute) Trochanteric bursitis, left hip (Acute 05/15/17) Adhesive capsulitis of left shoulder (Acute 05/15/17) Trochanteric bursitis of left hip (Chronic) Medical History (Updated 01/09/22 @ 15:37 by Alfredo Quiñonez MD) Anxiety and depression Breast cancer Carotid artery stenosis Flank pain Frailty HTN (hypertension) Hyperlipidemia Insomnia Lumbar disc disease Mild memory disturbance Osteoarthritis Osteoporosis Prediabetes UTI (urinary tract infection) Vaginal atrophy Widened pulse pressure Social History Smoking/Tobacco Use Status: Never Smoking risk assessment performed?: Yes Alcohol Intake: never Drug use: Never Substance use type: does not use Do you feel safe at home: Yes Do you feel safe in your relationship?: Yes Exam Const General: cooperative and no acute distress [facility] Head: normocephalic and atraumatic Neck Neck: supple Chest Chest: no crepitus and tenderness rib (posterior lateral ribs ttp) Resp Auscultation: clear to auscultation bilaterally, no rales, no rhonchi and no wheezes Cardio Rate: regular rate and not tachycardic Rhythm: regular rhythm GI Palpation: soft, not firm, no guarding, no masses, not rigid and nontender Back/Spine/Pelvis Cervical Spine: cervical ROM normal and No cervical spinal tenderness Thoracic/Lumbar Spine: thoracic and lumbar spine normal to inspection Skin General skin exam: no rashes or lesions noted Neuro General: patient alert, patient awake, patient oriented x3 and tone normal Course Vital Signs Vital signs: Vital Signs Temperature 37.1 C 01/09/22 12:34 Pulse 87 01/09/22 12:34 Respiratory Rate 20 01/09/22 12:34 Blood Pressure 120/40 L 01/09/22 12:34 Pulse Oximetry 98 01/09/22 12:34 Temperature 37.1 C 01/09/22 12:34 Temperature Source Skin 01/09/22 12:34 Pulse 87 01/09/22 12:34 Respiratory Rate 20 01/09/22 12:34 Respiratory Effort 01/09/22 13:45 Blood Pressure 120/40 L 01/09/22 12:34 Blood Pressure Position Sitting 01/09/22 12:34 Pulse Oximetry 98 01/09/22 12:34 Oxygen Delivery Method Nasal Cannula 01/09/22 12:34 Oxygen Flow Rate 2 01/09/22 12:34 Pain Level 9 01/09/22 13:42 Comment 01/09/22 12:34
== END 2022-01-09 15:38 | disposition home or self-care (01) ==
PROVIDERS: Emergency Provider Student in an Organized Health Care Education/Training Program; PCP Physician Assistant Medical
DX: S20.221A Contusion of right back wall of thorax, initial encounter (principal); W01.0XXA Fall on same level from slipping, tripping and stumbling without subsequent striking against object, initial encounter; I10 Essential (primary) hypertension
CPT/HCPCS: 99283; 71046; 71100; 72072

== ENCOUNTER 2022-03-26 17:34 | Outpatient (REF) | payer MEDICARE, OTHER, SELFPAY ==
[2022-03-26 15:14] LABS: ALT 17 U/L (14-59); AST 24 U/L (15-37); Albumin 3.6 g/dL (3.4-5.0); Alkaline Phosphatase 59 U/L (46-116); Anion Gap 0 mmol/L (3-11); BUN 13 mg/dL (7-18); Bilirubin, Total 0.3 mg/dL (0.2-1.0); CREATININE 0.7 mg/dL (0.55-1.02); Calculated LDL 91 mg/dL (<100); Chloride 95 mmol/L (98-107); Cholesterol 193 mg/dL (<200); Glucose 92 mg/dL (74-106); HDL Cholesterol 94 mg/dL (40-60); Sodium 135 mmol/L (136-145); Triglyceride 44 mg/dL (<150)
== END 2022-03-26 17:35 | disposition home or self-care (01) ==
LOC: NCHCN 17:34
PROVIDERS: PCP Physician Assistant Medical; Visit Provider Physician Assistant Medical
DX: I10 Essential (primary) hypertension (principal); E78.5 Hyperlipidemia, unspecified
CPT/HCPCS: 80053; 80061

== ENCOUNTER 2022-08-20 11:56 | Outpatient (REF) | payer MEDICARE, OTHER, SELFPAY ==
[2022-08-20 16:13] LABS: Abs Immature Grans 0.01 10^3/uL (0.0-0.06); Absolute Basophil Count 0.07 10^3/uL (0.0-0.2); Absolute Lymphocyte Count 1.19 10^3/uL (1.2-3.4); Absolute Monocyte Count 0.61 10^3/uL (0.1-0.8); Absolute Neutrophil Count 3.05 10^3/uL (1.2-6.7); Basophils % 1.4; HCT 37.3 % (36.0-46.0); HGB 12.1 g/dL (11.2-15.7); Immature Grans % 0.2; Lymphocytes % 23.7; MCH 29.5 pg (27.0-33.0); MCHC 32.4 % (32.0-36.0); MCV 91 fL (80-95); MPV 10.1 fL (8.0-11.0); Monocytes % 12.1; Neutrophils % 60.6; Platelet Count 297 10^3/uL (130-400); RDW 11.9 % (11.7-14.6); RDW-SD 39.9 fL; WBC 5.03 10^3/uL (4.4-10.8)
[2022-08-20 16:29] LABS: ALT 16 U/L (14-59); AST 19 U/L (15-37); Albumin 3.7 g/dL (3.4-5.0); Alkaline Phosphatase 52 U/L (46-116); Amylase 68 U/L (25-115); Anion Gap 1.6 mmol/L (3-11); BUN 10 mg/dL (7-18); Bilirubin, Total 0.3 mg/dL (0.2-1.0); CO2 39.4 mmol/L (21.0-32.0); CREATININE 0.8 mg/dL (0.55-1.02); Calcium 9.4 mg/dL (8.5-10.1); Chloride 94 mmol/L (98-107); Estimated GFR 76.31 (mL/min/1.73m2); Glucose 111 mg/dL (74-106); Lipase 87 U/L (73-393); Potassium 3.2 mmol/L (3.5-5.1); Sodium 135 mmol/L (136-145); Total Protein 7.1 g/dL (6.4-8.2)
== END 2022-08-20 11:57 | disposition home or self-care (01) ==
LOC: NCHCN 11:56
PROVIDERS: PCP Physician Assistant Medical; Visit Provider Physician Assistant Medical
DX: R63.4 Abnormal weight loss (principal); R68.81 Early satiety
CPT/HCPCS: 80053; 83690; 82150; 85025

== ENCOUNTER → 2022-09-05 02:24 | Outpatient (CLI) | payer MEDICARE, SELFPAY ==
--- NOTE | 2022-09-05 | DI.CT_ITS ---
Exam(s) CT ABDOMEN PELVIS W EXAM: CT ABDOMEN PELVIS W INDICATION: WT LOSS, R63.4,EARLY SATIETY,R68.81. COMPARISON: No exams were available for comparison TECHNIQUE: FINDINGS: CT examination of the abdomen and pelvis was performed with intravenous infusion of 100 cc of Omnipaq ue 350. Images obtained through the lung bases are unremarkable. There is suggestion of wall thickening of the distal esophagus, esophagoscopy suggested to evaluate t he possibility of esophageal lesion. Question mild gastric wall thickening also noted, possibly infl ammatory. Wall thickening of 3rd portion the duodenum also appears to be present. The liver is unremarkable in appearance. Gallbladder and bile ducts are CT normal. Pancreas appears normal. Spleen is unremarkable in appearance. Adrenals appear normal. The kidneys are unremarkable except for small bilateral renal cysts with no evidence of hydronephrosi s, nephrolithiasis, or renal mass.. Urinary bladder unremarkable. Abdominal aorta is of normal diameter and no major vascular abnormality is seen. No abdominal wall hernia. No abdominal or pelvic adenopathy. [employer] structures appear intact. Appendix is not specifically visualized but there is no evidence of appendicitis. No evidence of div erticulitis or bowel obstruction. IMPRESSION: Possible wall thickening of distal esophagus, gastric fundus and antrum, and 3rd portion duodenum. C orrelation with endoscopy suggested to evaluate the possibility of inflammatory or neoplastic disease . RADIATION DOSE DELIVERED: 381.05mGy.cm Total DLP 381.05mGy.cm Total DLP RADIATION OPTIMIZATION: All CT scans at this facility use at least one of these dose optimization te chniques: automated exposure control; mA and/or kV adjustment per patient size (includes targeted exa ms where dose is matched to clinical indication); or iterative reconstruction.
[2022-09-05] MEDS: Barium Sulfate 2% W/V-Berry Smoothie 450 ML BTL PO ×2 (12:16→12:17)
[2022-09-05] MEDS: Normal Saline - Diluent 50 ML VIAL IJ (14:30)
[2022-09-05] MEDS: Omnipaque 350 MG/ML 100 ML BTL IJ (14:31)
== END ==
PROVIDERS: PCP Physician Assistant Medical; Visit Provider Physician Assistant Medical
DX: R68.81 Early satiety (principal); R63.4 Abnormal weight loss; K22.89 Other specified disease of esophagus; K31.89 Other diseases of stomach and duodenum
CPT/HCPCS: 74177; J3490

== ENCOUNTER 2022-09-06 18:55 | Inpatient (IN) | payer MEDICARE, SELFPAY ==
[2022-09-06 19:07] VITALS: BP 167/60; PULSE 104; RESP 30; TEMP 37.1; O2SAT 99
--- NOTE | 2022-09-06 20:45 | DI.CT_ITS ---
Exam(s) CT BRAIN NECK CTA EXAM: CT BRAIN NECK CTA CLINICAL HISTORY: confusion, AMS. TECHNIQUE: Imaging Protocol: Axial CT angiography was performed with multi-slice acquisition and mu lti-planar and/or 3D reconstructions. CONTRAST MATERIAL: Intravenous: Omnipaque 350 contrast volume:85 mL COMPARISON: CT FACIAL WITHOUT CONTRAST from 05/10/2014 FINDINGS: CT Head W/O and W: Ventricles and Extra axial spaces: Normal in size and morphology for the patient's age. Hemorrhage: None. Cerebral parenchyma: No evidence of an acute territorial infarct. Midline shift: None. Brainstem/Cerebellum: Normal. Calvarium: Normal. Visualized Paranasal sinuses/Mastoids: Clear. Soft Tissues: Unremarkable. Enhancement: Unremarkable. CTA Neck W: Common Carotid: Right: No dissection, occlusion or significant stenosis. Left: No dissection, occlusion or significant stenosis. Mild atherosclerosis. External Carotid: Right: No occlusion or significant stenosis. Left: No occlusion or significant stenosis. Internal Carotid: Right: No dissection, occlusion or significant stenosis. Left: No dissection, occlusion or significant stenosis. Vertebral Artery: Right: No dissection, occlusion or significant stenosis. Left: No dissection, occlusion or significant stenosis. Lung Apices: Normal. Bones: Within normal limits for the patient's age. Soft Tissues: There are few tiny thyroid nodules. The largest is less than 5 mm. No follow-up is re commended. Thyroid gland: Unremarkable. CTA Brain W: Internal Carotid Arteries: Normal. Anterior Cerebral Arteries: Right: No aneurysm, occlusion or significant stenosis. Left: No aneurysm, occlusion or significant stenosis. Middle Cerebral Arteries: Right: No aneurysm, occlusion or significant stenosis. Left: No aneurysm, occlusion or significant stenosis. Posterior Cerebral Arteries: Right: No aneurysm, occlusion or significant stenosis. Left: No aneurysm, occlusion or significant stenosis. Vertebral Arteries: Right: No aneurysm, occlusion or significant stenosis. Left: No aneurysm, occlusion or significant stenosis. Basilar Artery: No aneurysm, occlusion or significant stenosis. IMPRESSION: 1. No large vessel occlusion or significant stenosis on the CT angiography of the head. 2. No acute intracranial process. 3. No occlusion or significant stenosis on the CT angiography of the neck. RADIATION DOSE DELIVERED: 1,848.94mGy.cm Total DLP DATA REPOSITORY: All CT scans at this facility are submitted to the National Radiology Data Registry (NRDR) Dose Index Registry (DIR) with the [employer] (ACR). RADIATION OPTIMIZATION: All CT scans at this facility use at least one of these dose optimization te chniques: automated exposure control; mA and/or kV adjustment per patient size (includes targeted exa ms where dose is matched to clinical indication); or iterative reconstruction.
--- NOTE | 2022-09-06 20:45 | RT.EKG_ITS ---
APPROVED REPORT Exam: Resting ECG Reason for Exam: confusion Patient Location: E HR:100 bpm ECG Measurements Heart Rate 100 AXIS MA 131 P 92 QRSd 88 QRS 86 QT 339 T 74 QTc 436 Conclusion Sinus tachycardia...rate> 99 Physician: no stemi, t waves unchanged from prior ekg
[2022-09-06 21:33] LABS: BE (Venous) 8 mmol/L (-2-3); HCO3 (Venous) 32 mmol/L (23-28); O2 Sat (Venous) 77 %; TCO2 (Venous) 29 mmol/L (24-29); pCO2 (Venous) 50 mmHg (41-51); pH (Venous) 7.42 (7.31-7.41); pO2 (Venous) 38 mmHg
[2022-09-06 21:34] LABS: Abs Immature Grans 0.03 10^3/uL (0.0-0.06); Absolute Basophil Count 0.03 10^3/uL (0.0-0.2); Absolute Eosinophil Count 0.01 10^3/uL (0.0-0.7); Absolute Lymphocyte Count 1.34 10^3/uL (1.2-3.4); Absolute Monocyte Count 0.84 10^3/uL (0.1-0.8); Absolute Neutrophil Count 5.42 10^3/uL (1.2-6.7); Basophils % 0.4; Eosinophils % 0.1; HCT 34.5 % (36.0-46.0); HGB 12.2 g/dL (11.2-15.7); Immature Grans % 0.4; Lymphocytes % 17.5; MCH 29.8 pg (27.0-33.0); MCHC 35.4 % (32.0-36.0); MCV 84 fL (80-95); MPV 9.2 fL (8.0-11.0); Neutrophils % 70.6; Platelet Count 282 10^3/uL (130-400); RDW-SD 34.2 fL; WBC 7.67 10^3/uL (4.4-10.8)
[2022-09-06 21:45] LABS: Ammonia 10 umol/L (11-32)
[2022-09-06 21:57] LABS: ALT 16 U/L (14-59); AST 24 U/L (15-37); Albumin 3.9 g/dL (3.4-5.0); Alkaline Phosphatase 59 U/L (46-116); Anion Gap 6.4 mmol/L (3-11); BUN 7 mg/dL (7-18); Bilirubin, Total 0.8 mg/dL (0.2-1.0); CO2 31.6 mmol/L (21.0-32.0); CREATININE 0.6 mg/dL (0.55-1.02); Chloride 80 mmol/L (98-107); Estimated GFR 92.97 (mL/min/1.73m2); Glucose 100 mg/dL (74-106); Potassium 3.8 mmol/L (3.5-5.1); Total Protein 7.2 g/dL (6.4-8.2); Troponin I < 50 ng/L (<or=60)
[2022-09-06 22:00] LABS: Sodium 118 mmol/L (136-145)
[2022-09-06] MEDS: Normal Saline - Diluent 50 ML VIAL IJ (22:14)
[2022-09-06] MEDS: Omnipaque 350 MG/ML 100 ML BTL IJ (22:15)
[2022-09-06] MEDS: Normal Saline Flush 10 ML SYR IVP (22:16)
[2022-09-06 22:21] LABS: TSH (W/Ref FT4) 1.52 uIU/mL (0.36-3.74)
--- NOTE | 2022-09-06 22:36 | DI.VRAD_ITS ---
PROCEDURE INFORMATION: Exam: CTA Head With Contrast, Arteriography Exam date and time: 09/06/2022 22:14 Age: 76 years old Clinical indication: Stroke-like symptoms; Other: Confusion, AMS TECHNIQUE: Imaging protocol: Computed tomographic angiography of the head with contrast. Exam focused on the arteries. 3D rendering (Not supervised by radiologist): MIP and/or 3D reconstructed images were created by the technologist. Contrast material: OMNPAIQUE 350; Contrast volume: 85 ml; Contrast route: INTRAVENOUS (IV); COMPARISON: No relevant prior studies available. FINDINGS: ANTERIOR CIRCULATION: Right internal carotid artery: Intracranial segment is patent with no significant stenosis. No aneurysm. Right middle cerebral artery: No occlusion or significant stenosis. No aneurysm. Right anterior cerebral artery: No occlusion or significant stenosis. No aneurysm. Left internal carotid artery: Intracranial segment is patent with no significant stenosis. No aneurysm. Left middle cerebral artery: No occlusion or significant stenosis. No aneurysm. Left anterior cerebral artery: No occlusion or significant stenosis. No aneurysm. POSTERIOR CIRCULATION: Right vertebral artery: No occlusion or significant stenosis. No aneurysm. Left vertebral artery: No occlusion or significant stenosis. No aneurysm. Basilar artery: No occlusion or significant stenosis. No aneurysm. Right posterior cerebral artery: No occlusion or significant stenosis. No aneurysm. Left posterior cerebral artery: No occlusion or significant stenosis. No aneurysm. Brain: No edema. Cerebral ventricles: No ventriculomegaly. Bones/joints: No acute fracture. Soft tissues: No suspicious lesions. IMPRESSION: No acute arterial pathology. Patent [place] of [place]. PROCEDURE INFORMATION: Exam: CTA Neck With Contrast Exam date and time: 09/06/2022 22:14 Age: 76 years old Clinical indication: Stroke-like symptoms; Other: Confusion, AMS TECHNIQUE: Imaging protocol: Computed tomographic angiography of the neck with contrast. 3D rendering (Not supervised by radiologist): MIP and/or 3D reconstructed images were created by the technologist. Contrast material: OMNPAIQUE 350; Contrast volume: 85 ml; Contrast route: INTRAVENOUS (IV); COMPARISON: US CAROTID ULTRASOUND 02/26/2018 03:34 FINDINGS: Right common carotid artery: No significant stenosis. No dissection or occlusion. Right internal carotid artery: Extracranial segment is patent with no significant stenosis. No dissection or occlusion. Right external carotid artery: No occlusion or significant stenosis. Left common carotid artery: No significant stenosis. No dissection or occlusion. Left internal carotid artery: Extracranial segment is patent with no significant stenosis. No dissection or occlusion. Left external carotid artery: No occlusion or significant stenosis. Right vertebral artery: No significant stenosis. No dissection or occlusion. Left vertebral artery: No significant stenosis. No dissection or occlusion. Thyroid: Multiple small thyroid nodules. Follow-up as per institutional protocol. Soft tissues: No significant soft tissue swelling. Bones/joints: Degenerative changes in the spine. No acute fracture or subluxation. IMPRESSION: 1. No acute arterial pathology. Patent carotid and vertebral system bilaterally. 2. Incidental findings as described. Dictated and Authenticated by: Dalia Bethea MD. Ordering:DARREN Carter MD
--- NOTE | 2022-09-06 22:38 | W.ED.GENAD ---
Discharge Plan Disposition Patient Disposition: Admit to [facility] Condition: Improving Discharge Details Chief Complaint: RespSymp Clinical Impression: Acute hyponatremia, Ataxia Admit Date/Time: 09/06/22 23:10 Admit Provider: Abiel Garcia Attending Provider: Abiel Garcia Primary Care Provider: Tom Fuchs ED Provider: Raul Zurita Medical Decision Making This is a pleasant 76-year-old female with a past medical history of COPD, on 2 L of chronic oxygen, high cholesterol, who presents today for confusion and weakness. who is at bedside states that for the last week or 2 she has been somewhat weaker than normal but still able to do well, however this afternoon all the was away at work the patient became notably more confused, and extremely weak. This continued and worsened throughout the day. When her got home from work she was having difficulty walking and continued to be weak and confused. She was brought to the ER for further evaluation. She denies any new cough, fever or chills. No urinary complaints. No trauma or falls, no headache. No history of stroke or heart attack. No other complaints at this time. Physical exam demonstrates a well-appearing but confused female. She is ANO x3 but she does not know what her job was years ago, nor her 's previous occupation, she is ataxic when trying to walk and very imbalance. Differential includes stroke, electrolyte abnormality, elevated ammonia or less likely hypercarbia. She has no other concerning physical exam findings to suggest a focal stroke, however we will evaluate with CTA, monitor closely and reassess. 11 PM Laboratory work-up has returned, sodium is 121, CTA/CT negative for acute process, the remainder of her work-up is relatively benign. I suspect the patient's hyponatremia is the cause of her current symptomatology. She was given an initial 500 cc bolus upon arrival, and we will continue at 125 mL of normal saline per hour. Patient actually looks clinically improved on reassessment after initial bolus. Patient will be admitted to the floor. Discussed the case with the hospitalist Dr. Garcia, he agrees with the assessment and plan. I will place admission orders on his behalf. I have extensively reviewed the treatment plan with the patient. I have addressed all patient concerns at this time. I have also discussed the plan with the admitting physician and they agree with the current assessment and plan and have agreed to assume responsibility for the patient. All parties demonstrate verbal understanding and agreement with our assessment and plan at this time. The documentation in this chart was dictated using [employer] dictation software. Please excuse any dictation errors. FINDINGS: ANTERIOR CIRCULATION: Right internal carotid artery: Intracranial segment is patent with no significant stenosis. No aneurysm. Right middle cerebral artery: No occlusion or significant stenosis. No aneurysm. Right anterior cerebral artery: No occlusion or significant stenosis. No aneurysm. Left internal carotid artery: Intracranial segment is patent with no significant stenosis. No aneurysm. Left middle cerebral artery: No occlusion or significant stenosis. No aneurysm. Left anterior cerebral artery: No occlusion or significant stenosis. No aneurysm. POSTERIOR CIRCULATION: Right vertebral artery: No occlusion or significant stenosis. No aneurysm. Left vertebral artery: No occlusion or significant stenosis. No aneurysm. Basilar artery: No occlusion or significant stenosis. No aneurysm. Right posterior cerebral artery: No occlusion or significant stenosis. No aneurysm. Left posterior cerebral artery: No occlusion or significant stenosis. No aneurysm. Brain: No edema. Cerebral ventricles: No ventriculomegaly. Bones/joints: No acute fracture. Soft tissues: No suspicious lesions. IMPRESSION: No acute arterial pathology. Patent [place]. FINDINGS: Right common carotid artery: No significant stenosis. No dissection or occlusion. Right internal carotid artery: Extracranial segment is patent with no significant stenosis. No dissection or occlusion. Right external carotid artery: No occlusion or significant stenosis. Left common carotid artery: No significant stenosis. No dissection or occlusion. Left internal carotid artery: Extracranial segment is patent with no significant stenosis. No dissection or occlusion. Left external carotid artery: No occlusion or significant stenosis. Right vertebral artery: No significant stenosis. No dissection or occlusion. Left vertebral artery: No significant stenosis. No dissection or occlusion. Thyroid: Multiple small thyroid nodules. Follow-up as per institutional protocol. Soft tissues: No significant soft tissue swelling. Bones/joints: Degenerative changes in the spine. No acute fracture or subluxation. IMPRESSION: 1. No acute arterial pathology. Patent carotid and vertebral system bilaterally. 2. Incidental findings as described. Thank you for allowing us to participate in the care of your patient. Dictated and Authenticated by: Dalia Bethea MD 09/06/2022 10:34 PM Eastern Time ([place] & [place]) Sign Out No HPI General Date/Time Provider Initiated Documentation: 09/06/22 19:49. HPI Narrative: This is a pleasant 76-year-old female with a past medical history of COPD, on 2 L of chronic oxygen, high cholesterol, who presents today for confusion and weakness. who is at bedside states that for the last week or 2 she has been somewhat weaker than normal but still able to do well, however this afternoon all the was away at work the patient became notably more confused, and extremely weak. This continued and worsened throughout the day. When her got home from work she was having difficulty walking and continued to be weak and confused. She was brought to the ER for further evaluation. She denies any new cough, fever or chills. No urinary complaints. No trauma or falls, no headache. No history of stroke or heart attack. No other complaints at this time. Related Data Home Medications Medication Instructions Recorded Confirmed alendronate 70 mg tablet 1 tab PO DIRECTED 05/10/14 09/07/22 cyclosporine 0.05 % eye drops in a 1 drp ophthalmic (eye) BID 05/15/17 09/07/22 dropperette (Restasis) gabapentin 300 mg capsule 300 mg PO HS 01/05/18 09/07/22 calcium carbonate 500 mg calcium 0.5 gm PO DAILY 01/07/18 09/07/22 (1,250 mg) tablet (Oyster Shell Calcium 500) chlorthalidone 25 mg tablet 0.5 tab PO DAILY 08/01/18 09/07/22 atorvastatin 10 mg tablet 10 mg PO DAILY 01/13/21 09/07/22 conjugated estrogens 0.625 mg/gram 0.625 mg vaginal DAILY 02/20/21 09/07/22 vaginal cream (Premarin) Oxygen #1 ea 04/19/21 09/07/22 mometasone-formoterol HFA 100 2 puff inhalation BID #1 inh 06/07/21 09/07/22 mcg-5 mcg/actuation aerosol inhaler (Dulera) tiotropium bromide 2.5 2 puff inhalation DAILY #1 inh 06/07/21 09/07/22 mcg/actuation mist for inhalation (Spiriva Respimat) Previous Rx's Medication Instructions Recorded calcium carbonate 500 mg calcium 0.5 gm PO DAILY 01/07/18 (1,250 mg) tablet (Oyster Shell Calcium 500) mometasone-formoterol HFA 100 2 puff inhalation BID #1 inh 06/07/21 mcg-5 mcg/actuation aerosol inhaler (Dulera) tiotropium bromide 2.5 2 puff inhalation DAILY #1 inh 06/07/21 mcg/actuation mist for inhalation (Spiriva Respimat) Allergies Allergy/AdvReac Type Severity Reaction Status Date / Time Sulfa (Sulfonamide Allergy Intermediate Hives Unverified 05/22/22 11:01 Antibiotics) General Stated Complaint: RespSymp MOIRA: 3 Review of Systems All systems reviewed & are unremarkable except as noted in HPI and below PFSH All Active Problems (Updated 09/07/22 @ 01:50 by Raul Zurita DO) Acute hyponatremia (Acute) Ataxia (Acute) Respiratory failure with hypoxia (Acute) Bronchiectasis (Acute) COPD (chronic obstructive pulmonary disease) (Chronic) Bronchiolitis obliterans (Acute) Recurrent urinary tract infection (Acute) Closed trimalleolar fracture of right ankle (Acute) Trochanteric bursitis, left hip (Acute 05/15/17) Adhesive capsulitis of left shoulder (Acute 05/15/17) Trochanteric bursitis of left hip (Chronic) Medical History Anxiety and depression Breast cancer Carotid artery stenosis Flank pain Frailty HTN (hypertension) Hyperlipidemia Insomnia Lumbar disc disease Mild memory disturbance Osteoarthritis Osteoporosis Prediabetes UTI (urinary tract infection) Vaginal atrophy Widened pulse pressure Social History Smoking/Tobacco Use Status: Never Smoking risk assessment performed?: Yes Alcohol Intake: never Drug use: Never Substance use type: does not use Do you feel safe at home: Yes Do you feel safe in your relationship?: Yes Exam Narrative Exam Narrative: 1.Const: Well-nourished, Well-developed, appearing stated age 2.Eyes: PERRL, no conjunctival injection, and symmetrical lids. 3.ENT: Atraumatic external nose and ears. Moist MM. Neck: Symmetric, trachea midline, No thyromegaly. 4.CVS: +S1/S2, No murmurs or gallops. Peripheral pulses 2+ and equal in all extremities. Brisk capillary refill in all extremities. 5.RESP: Unlabored respiratory effort. Clear to auscultation bilaterally. No wheezes rales or rhonchi 6.GI: Soft, Nontender/Nondistended, No hepatosplenomegaly. No guarding or rebound. 7.MSK: Normocephalic/Atraumatic, Extremities w/o deformity or ttp No cyanosis or clubbing, Normal movement of all extremities 8.Skin: Warm, Dry. No rashes or lesions. 9.Neuro: strip picker II-XII grossly intact. Sensation grossly intact, no focal neurologic deficits. All 6 cardinal planes of vision are fully intact. No evidence of rotatory or vertical nystagmus. The patient demonstrated a normal [id number], good dexterity. There was no evidence of dysdiadochokinesia. Patient has notable difficulty with walking and is quite ataxic.. Sensation was intact bilaterally as well as muscle strength bilaterally for all extremities. Patient was able to verbalize butter cup with no slurring, or miss pronunciation. 10.Psych: (AAO) x3. Appropriate mood and affect Course Vital Signs Vital signs: Vital Signs Temperature 37.1 C 09/06/22 19:07 Pulse 104 H 09/06/22 19:07 Respiratory Rate 30 H 09/06/22 19:07 Blood Pressure 167/60 H 09/06/22 19:07 Pulse Oximetry 99 09/06/22 19:07 Temperature 37.1 C 09/06/22 19:07 Temperature Source Oral 09/06/22 19:07 Pulse 104 H 09/06/22 19:07 Respiratory Rate 30 H 09/06/22 19:07 Respiratory Effort 09/06/22 21:35 Respiratory Depth Normal 09/06/22 21:34 Blood Pressure 167/60 H 09/06/22 19:07 Blood Pressure Position Sitting 09/06/22 19:07 Pulse Oximetry 99 09/06/22 19:07 Oxygen Delivery Method Room Air 09/06/22 19:07 Oxygen Flow Rate 0 09/06/22 19:07 Pain Level 0 09/06/22 19:07 Lab/Test Results Lab/Test Results: Laboratory Tests Range/Units 09/06/22 09/06/22 09/06/22 21:25 21:25 21:25 WBC (4.4-10.8) 10^3/uL 7.67 RBC (3.93-5.22) 10^6/uL 4.10 Hgb (11.2-15.7) g/dL 12.2 Hct (36.0-46.0) % 34.5 L MCV (80-95) fL 84 MCH (27.0-33.0) pg 29.8 MCHC (32.0-36.0) % 35.4 RDW (11.7-14.6) % 11.0 L Plt Count (130-400) 10^3/uL 282 MPV (8.0-11.0) fL 9.2 Immature Gran % 0.4 Neutrophils % 70.6 Lymphocytes % 17.5 Monocytes % 11.0 Eosinophils % 0.1 Basophils % 0.4 Nucleated RBC % (0.0-0.3) % 0.0 Absolute Neutrophils (1.2-6.7) 10^3/uL 5.42 Absolute Lymphocytes (1.2-3.4) 10^3/uL 1.34 Absolute Monocytes (0.1-0.8) 10^3/uL 0.84 H Absolute Eosinophils (0.0-0.7) 10^3/uL 0.01 Absolute Basophils (0.0-0.2) 10^3/uL 0.03 VBG pH (7.31-7.41) VBG pCO2 (41-51) mmHg VBG pO2 mmHg VBG HCO3 (23-28) mmol/L VBG Total CO2 (24-29) mmol/L VBG O2 Saturation % VBG Base Excess (-2-3) mmol/L Sodium (136-145) mmol/L 118 L* Potassium (3.5-5.1) mmol/L 3.8 Chloride (98-107) mmol/L 80 L Carbon Dioxide (21.0-32.0) mmol/L 31.6 Anion Gap (3-11) mmol/L 6.4 BUN (7-18) mg/dL 7 Creatinine (0.55-1.02) mg/dL 0.6 Est GFR (CKD-EPI 2020) (mL/min/1.73m2) 92.97 Glucose (74-106) mg/dL 100 Calcium (8.5-10.1) mg/dL 9.0 Total Bilirubin (0.2-1.0) mg/dL 0.8 AST (15-37) U/L 24 ALT (14-59) U/L 16 Alkaline Phosphatase (46-116) U/L 59 Ammonia (11-32) umol/L 10 L Troponin I (<or=60) ng/L < 50 Total Protein (6.4-8.2) g/dL 7.2 Albumin (3.4-5.0) g/dL 3.9 TSH (0.36-3.74) uIU/mL Range/Units 09/06/22 09/06/22 21:25 21:25 WBC (4.4-10.8) 10^3/uL RBC (3.93-5.22) 10^6/uL Hgb (11.2-15.7) g/dL Hct (36.0-46.0) % MCV (80-95) fL MCH (27.0-33.0) pg MCHC (32.0-36.0) % RDW (11.7-14.6) % Plt Count (130-400) 10^3/uL MPV (8.0-11.0) fL Immature Gran % Neutrophils % Lymphocytes % Monocytes % Eosinophils % Basophils % Nucleated RBC % (0.0-0.3) % Absolute Neutrophils (1.2-6.7) 10^3/uL Absolute Lymphocytes (1.2-3.4) 10^3/uL Absolute Monocytes (0.1-0.8) 10^3/uL Absolute Eosinophils (0.0-0.7) 10^3/uL Absolute Basophils (0.0-0.2) 10^3/uL VBG pH (7.31-7.41) 7.42 H VBG pCO2 (41-51) mmHg 50 VBG pO2 mmHg 38 VBG HCO3 (23-28) mmol/L 32 H VBG Total CO2 (24-29) mmol/L 29 VBG O2 Saturation % 77 VBG Base Excess (-2-3) mmol/L 8 H Sodium (136-145) mmol/L Potassium (3.5-5.1) mmol/L Chloride (98-107) mmol/L Carbon Dioxide (21.0-32.0) mmol/L Anion Gap (3-11) mmol/L BUN (7-18) mg/dL Creatinine (0.55-1.02) mg/dL Est GFR (CKD-EPI 2020) (mL/min/1.73m2) Glucose (74-106) mg/dL Calcium (8.5-10.1) mg/dL Total Bilirubin (0.2-1.0) mg/dL AST (15-37) U/L ALT (14-59) U/L Alkaline Phosphatase (46-116) U/L Ammonia (11-32) umol/L Troponin I (<or=60) ng/L Total Protein (6.4-8.2) g/dL Albumin (3.4-5.0) g/dL TSH (0.36-3.74) uIU/mL 1.52
[2022-09-06] MEDS: Normal Saline 500 ML IV (22:47)
[2022-09-06 23:15] LABS: Bilirubin Negative (Negative); Blood Trace-intact (Negative); Clarity Clear (Clear); Glucose Negative (Negative); Ketones 40 mg/dL (Negative); Leukocyte Esterase Negative (Negative); Nitrite Negative (Negative); Specific Gravity 1.015 (1.005-1.025); Urobilinogen 0.2 EU/dL (Up TO 0.2); pH 6.5 (5-8)
[2022-09-06 23:16] VITALS: BP 142/78; PULSE 106; RESP 22; TEMP 36.6; O2SAT 97
[2022-09-06 23:19] LABS: Bacteria Rare HPF (Negative); C & S Indicated? No; Casts Negative LPF (Negative); Crystals Negative HPF (Negative); Epithelial Cells Few HPF (Negative); Mucus Negative (Negative); WBC Negative HPF (0-5)
[2022-09-06 23:24] LABS: Source Nasal/Nares
[2022-09-06 23:54] LABS: COVID-19 PCR Negative (Negative)
[2022-09-07] VITALS (10 sets, daily range): BP systolic 124–167; BP diastolic 55–68; PULSE 82–105; RESP 16–20; TEMP 36.1–36.9; O2SAT 97–100
[2022-09-07 00:11] LABS: Anion Gap 6.5 mmol/L (3-11); BUN 7 mg/dL (7-18); CO2 30.5 mmol/L (21.0-32.0); CREATININE 0.5 mg/dL (0.55-1.02); Chloride 84 mmol/L (98-107); Estimated GFR 97.14 (mL/min/1.73m2); Glucose 92 mg/dL (74-106); Potassium 3.4 mmol/L (3.5-5.1)
[2022-09-07 00:12] LABS: Sodium 121 mmol/L (136-145)
[2022-09-07 00:21] LABS: Troponin I < 50 ng/L (<or=60)
[2022-09-07 00:42] LABS: Sodium, Urine 56 mmol/L
[2022-09-07] MEDS: Normal Saline 1,000 ML 125 ML IV ×2 (01:43→07:36)
--- NOTE | 2022-09-07 05:05 | HPE_ITS ---
Date of service: 09/06/22 Time of Service: 23:30 Assessment and Plan Assessment and plan (1) Acute hyponatremia: Start date: 09/06/22 Status: Acute Assessment and plan: This is a very pleasant 76-year-old lady who presents with a progressive history of weakness and ataxia worsening the day prior to presentation to the ED. She was found to be hyponatremic and is chronically on chlorthalidone with decreased intake over the last several days. She has having also slight hypokalemia but is respond to IV fluid resuscitation with normal saline. She is not requiring hypertonic solution and her sodium is moving in the direction toward normal. Continue IV hydration and monitoring labs. Replete potassium as needed. She will be continued on her usual outpatient medical therapy including chlorthalidone for blood pressure control. She is a full code. (2) Ataxia: Start date: 09/06/22 Status: Acute Assessment and plan: Associated with acute hyponatremia clearing as this problem is corrected. Monitor clinically. No further imaging or evaluation for now. She may need PT and OT to evaluate and treat before discharge. (3) COPD (chronic obstructive pulmonary disease): Status: Chronic Assessment and plan: No evidence of exacerbation or hypoxemia. Continue outpatient inhaler therapy. (4) Mild memory disturbance: Assessment and plan: Slightly exacerbated with hyponatremia appearing to clear toward baseline at this time. History of Present Illness History of Present Illness Chief Complaint: Confusion with weakness Narrative: This is a very pleasant 76-year-old female patient with past history of COPD on chronic oxygen and hypertension with treatment on chlorthalidone but no potassium supplement who presented to the ED after noted the patient having acute worsening of confusion and weakness which had been progressive over the last couple of weeks. Patient had had decreased intake but was continuing to take her medicines. In the ED she was very unstable described as ataxic and was confused not knowing her past history when questioned. She was thought to have a possible stroke and CTA was performed which was unrevealing. Lab did reveal a low sodium at 118 and patient was given a fluid bolus of normal saline with some clearing of her confusion. At the time I saw the patient she was more alert and stated that she did realize that she was more confused earlier. Ov lenardll she was comfortable and not complaining of shortness of breath and had no focal neurological complaints or headache. She is a full code. Review of Systems Narrative: 13 point review of systems otherwise unrevealing or stable. PFSH All Active Problems Acute hyponatremia (Acute) Ataxia (Acute) Respiratory failure with hypoxia (Acute) Bronchiectasis (Acute) COPD (chronic obstructive pulmonary disease) (Chronic) Bronchiolitis obliterans (Acute) Recurrent urinary tract infection (Acute) Closed trimalleolar fracture of right ankle (Acute) Trochanteric bursitis, left hip (Acute 05/15/17) Adhesive capsulitis of left shoulder (Acute 05/15/17) Trochanteric bursitis of left hip (Chronic) Medical History Anxiety and depression Breast cancer Carotid artery stenosis Flank pain Frailty HTN (hypertension) Hyperlipidemia Insomnia Lumbar disc disease Mild memory disturbance Osteoarthritis Osteoporosis Prediabetes UTI (urinary tract infection) Vaginal atrophy Widened pulse pressure Social History Smoking/Tobacco Use Status: Never Smoking risk assessment performed?: Yes Alcohol Intake: never Drug use: Never Substance use type: does not use Do you feel safe at home: Yes Do you feel safe in your relationship?: Yes Meds Allergies and Home Medications Allergies Allergy/AdvReac Type Severity Reaction Status Date / Time Sulfa (Sulfonamide Allergy Intermediate Hives Unverified 05/22/22 11:01 Antibiotics) Home Medications Medication Instructions Recorded Confirmed Type alendronate 70 mg tablet 1 tab PO DIRECTED 05/10/14 09/07/22 History cyclosporine 0.05 % eye drops in a 1 drp ophthalmic (eye) BID 05/15/17 09/07/22 History dropperette (Restasis) gabapentin 300 mg capsule 300 mg PO HS 01/05/18 09/07/22 History calcium carbonate 500 mg calcium 0.5 gm PO DAILY 01/07/18 09/07/22 Rx (1,250 mg) tablet (Oyster Shell Calcium 500) chlorthalidone 25 mg tablet 0.5 tab PO DAILY 08/01/18 09/07/22 History atorvastatin 10 mg tablet 10 mg PO DAILY 01/13/21 09/07/22 History conjugated estrogens 0.625 mg/gram 0.625 mg vaginal DAILY 02/20/21 09/07/22 History vaginal cream (Premarin) Oxygen #1 ea 04/19/21 09/07/22 History mometasone-formoterol HFA 100 2 puff inhalation BID #1 inh 06/07/21 09/07/22 Rx mcg-5 mcg/actuation aerosol inhaler (Dulera) tiotropium bromide 2.5 2 puff inhalation DAILY #1 inh 06/07/21 09/07/22 Rx mcg/actuation mist for inhalation (Spiriva Respimat) Exam Narrative Exam Narrative: General: Patient appears appropriate for age, thin and lean and build, alert and oriented at least person and place possibly time. She is no acute distress. HEENT: Normocephalic, eyes with pupils equal and react to light symmetrically, extraocular movement intact and sclera anicteric. Oropharynx with moist mucosa. Neck: Supple without JVD. Back: Normal posture without CVA tenderness. Lungs: Fair aeration clear to auscultation percussion. Breast: Exam deferred. Heart: Regular rate and rhythm with no appreciable murmur or gallop. Abdomen: Scaphoid contour, soft and nontender to palpation with no palpable hepatosplenomegaly. Genitalia/rectal: Exam deferred. Skin: Normal color, warm and dry with fair turgor. Extremities: Without clubbing, cyanosis or pitting edema. Decreased musculature over extremities with adequate range of motion of all joints. Neuro: Cranial nerves II through XII grossly intact, no focal motor deficits. No tremor. DTRs physiologic and symmetrical and no Babinski's. Patient was ataxic with ambulation in the ED and was not walked or tested when lying in bed but nurse reports no difficulty with ambulation. Psych: Normal affect and mood. No abnormal thought processes. Remote and recent memory appear to be grossly intact with patient on being slightly confused. Results Imaging Imaging Studies: Exam: CTA Head With Contrast, Arteriography Exam date and time: 09/06/2022 22:14 Age: 76 years old Clinical indication: Stroke-like symptoms; Other: Confusion, AMS TECHNIQUE: Imaging protocol: Computed tomographic angiography of the head with contrast. Exam focused on the arteries. 3D rendering (Not supervised by radiologist): MIP and/or 3D reconstructed images were created by the technologist. Contrast material: OMNPAIQUE 350; Contrast volume: 85 ml; Contrast route: INTRAVENOUS (IV);? COMPARISON: No relevant prior studies available. FINDINGS: ANTERIOR CIRCULATION: Right internal carotid artery: Intracranial segment is patent with no significant stenosis. No aneurysm. Right middle cerebral artery: No occlusion or significant stenosis. No aneurysm.? Right anterior cerebral artery: No occlusion or significant stenosis. No aneurysm.? Left internal carotid artery: Intracranial segment is patent with no significant stenosis. No aneurysm. Left middle cerebral artery: No occlusion or significant stenosis. No aneurysm. ? Left anterior cerebral artery: No occlusion or significant stenosis. No aneurysm.? POSTERIOR CIRCULATION: Right vertebral artery: No occlusion or significant stenosis. No aneurysm.? Left vertebral artery: No occlusion or significant stenosis. No aneurysm.? Basilar artery: No occlusion or significant stenosis. No aneurysm. Right posterior cerebral artery: No occlusion or significant stenosis. No aneurysm.? Left posterior cerebral artery: No occlusion or significant stenosis. No aneurysm.? Brain: No edema. Cerebral ventricles: No ventriculomegaly. Bones/joints: No acute fracture. Soft tissues: No suspicious lesions.? IMPRESSION: No acute arterial pathology. Patent the [place]. PROCEDURE INFORMATION: Exam: CTA Neck With Contrast Exam date and time: 09/06/2022 22:14 Age: 76 years old Clinical indication: Stroke-like symptoms; Other: Confusion, AMS TECHNIQUE: Imaging protocol: Computed tomographic angiography of the neck with contrast. 3D rendering (Not supervised by radiologist): MIP and/or 3D reconstructed images were created by the technologist. Contrast material: OMNPAIQUE 350; Contrast volume: 85 ml; Contrast route: INTRAVENOUS (IV);? COMPARISON: US CAROTID ULTRASOUND 02/26/2018 03:34 FINDINGS: Right common carotid artery: No significant stenosis. No dissection or occlusion. Right internal carotid artery: Extracranial segment is patent with no significant stenosis. No dissection or occlusion. Right external carotid artery: No occlusion or significant stenosis. Left common carotid artery: No significant stenosis. No dissection or occlusion. Left internal carotid artery: Extracranial segment is patent with no significant stenosis. No dissection or occlusion. Left external carotid artery: No occlusion or significant stenosis. Right vertebral artery: No significant stenosis. No dissection or occlusion. Left vertebral artery: No significant stenosis. No dissection or occlusion. Thyroid: Multiple small thyroid nodules. Follow-up as per institutional protocol. Soft tissues: No significant soft tissue swelling. Bones/joints: Degenerative changes in the spine. No acute fracture or subluxation. IMPRESSION: 1. No acute arterial pathology. Patent carotid and vertebral system bilaterally. 2. Incidental findings as described. Labs Result diagrams: 09/06/22 21:25 09/06/22 23:55 Labs: Laboratory Results - last 24 hr 09/06/22 09/06/22 09/06/22 21:25 21:25 21:25 WBC 7.67 RBC 4.10 Hgb 12.2 Hct 34.5 L MCV 84 MCH 29.8 MCHC 35.4 RDW 11.0 L Plt Count 282 MPV 9.2 Immature Gran % 0.4 Neutrophils % 70.6 Lymphocytes % 17.5 Monocytes % 11.0 Eosinophils % 0.1 Basophils % 0.4 Nucleated RBC % 0.0 Absolute Neutrophils 5.42 Absolute Lymphocytes 1.34 Absolute Monocytes 0.84 H Absolute Eosinophils 0.01 Absolute Basophils 0.03 VBG pH VBG pCO2 VBG pO2 VBG HCO3 VBG Total CO2 VBG O2 Saturation VBG Base Excess Sodium 118 L* Potassium 3.8 Chloride 80 L Carbon Dioxide 31.6 Anion Gap 6.4 BUN 7 Creatinine 0.6 Est GFR (CKD-EPI 2020) 92.97 Glucose 100 Calcium 9.0 Total Bilirubin 0.8 AST 24 ALT 16 Alkaline Phosphatase 59 Ammonia 10 L Troponin I < 50 Total Protein 7.2 Albumin 3.9 TSH Urine Color Urine Clarity Urine pH Ur Specific [place] Urine Protein Urine Ketones Urine Blood Urine Nitrite Urine Bilirubin Urine Urobilinogen Ur Leukocyte Esterase Urine RBC Urine WBC Ur Epithelial Cells Urine Crystals Urine Bacteria Urine Casts Urine Mucus Ur Culture Indicated? Ur Random Sodium Urine Glucose COVID-19 Source SARS-CoV-2 (PCR) 09/06/22 09/06/22 09/06/22 21:25 21:25 23:10 WBC RBC Hgb Hct MCV MCH MCHC RDW Plt Count MPV Immature Gran % Neutrophils % Lymphocytes % Monocytes % Eosinophils % Basophils % Nucleated RBC % Absolute Neutrophils Absolute Lymphocytes Absolute Monocytes Absolute Eosinophils Absolute Basophils VBG pH 7.42 H VBG pCO2 50 VBG pO2 38 VBG HCO3 32 H VBG Total CO2 29 VBG O2 Saturation 77 VBG Base Excess 8 H Sodium Potassium Chloride Carbon Dioxide Anion Gap BUN Creatinine Est GFR (CKD-EPI 2020) Glucose Calcium Total Bilirubin AST ALT Alkaline Phosphatase Ammonia Troponin I Total Protein Albumin TSH 1.52 Urine Color Yellow Urine Clarity Clear Urine pH 6.5 Ur Specific [place] 1.015 Urine Protein Negative Urine Ketones 40 H Urine Blood Trace-intact H Urine Nitrite Negative Urine Bilirubin Negative Urine Urobilinogen 0.2 Ur Leukocyte Esterase Negative Urine RBC 3-5 H Urine WBC Negative Ur Epithelial Cells Few Urine Crystals Negative Urine Bacteria Rare Urine Casts Negative Urine Mucus Negative Ur Culture Indicated? No Ur Random Sodium Urine Glucose Negative COVID-19 Source SARS-CoV-2 (PCR) 09/06/22 09/06/22 09/06/22 23:10 23:14 23:55 WBC RBC Hgb Hct MCV MCH MCHC RDW Plt Count MPV Immature Gran % Neutrophils % Lymphocytes % Monocytes % Eosinophils % Basophils % Nucleated RBC % Absolute Neutrophils Absolute Lymphocytes Absolute Monocytes Absolute Eosinophils Absolute Basophils VBG pH VBG pCO2 VBG pO2 VBG HCO3 VBG Total CO2 VBG O2 Saturation VBG Base Excess Sodium Potassium Chloride Carbon Dioxide Anion Gap BUN Creatinine Est GFR (CKD-EPI 2020) Glucose Calcium Total Bilirubin AST ALT Alkaline Phosphatase Ammonia Troponin I < 50 Total Protein Albumin TSH Urine Color Urine Clarity Urine pH Ur Specific [place] Urine Protein Urine Ketones Urine Blood Urine Nitrite Urine Bilirubin Urine Urobilinogen Ur Leukocyte Esterase Urine RBC Urine WBC Ur Epithelial Cells Urine Crystals Urine Bacteria Urine Casts Urine Mucus Ur Culture Indicated? Ur Random Sodium 56 Urine Glucose COVID-19 Source Nasal/Nares SARS-CoV-2 (PCR) Negative 09/06/22 23:55 WBC RBC Hgb Hct MCV MCH MCHC RDW Plt Count MPV Immature Gran % Neutrophils % Lymphocytes % Monocytes % Eosinophils % Basophils % Nucleated RBC % Absolute Neutrophils Absolute Lymphocytes Absolute Monocytes Absolute Eosinophils Absolute Basophils VBG pH VBG pCO2 VBG pO2 VBG HCO3 VBG Total CO2 VBG O2 Saturation VBG Base Excess Sodium 121 L* Potassium 3.4 L Chloride 84 L Carbon Dioxide 30.5 Anion Gap 6.5 BUN 7 Creatinine 0.5 L Est GFR (CKD-EPI 2020) 97.14 Glucose 92 Calcium 8.0 L Total Bilirubin AST ALT Alkaline Phosphatase Ammonia Troponin I Total Protein Albumin TSH Urine Color Urine Clarity Urine pH Ur Specific [place] Urine Protein Urine Ketones Urine Blood Urine Nitrite Urine Bilirubin Urine Urobilinogen Ur Leukocyte Esterase Urine RBC Urine WBC Ur Epithelial Cells Urine Crystals Urine Bacteria Urine Casts Urine Mucus Ur Culture Indicated? Ur Random Sodium Urine Glucose COVID-19 Source SARS-CoV-2 (PCR) Initial sodium was 118. Last Vital Signs Temp 36.1 C L 09/07/22 00:57 Pulse 99 H 09/07/22 00:57 Resp 18 09/07/22 00:57 BP 167/66 H 09/07/22 00:57 Pulse Ox 97 09/07/22 00:57
[2022-09-07 07:36] LABS: HCT 33.6 % (36.0-46.0); HGB 11.5 g/dL (11.2-15.7); MCH 29.2 pg (27.0-33.0); MCHC 34.2 % (32.0-36.0); MCV 85 fL (80-95); MPV 9.6 fL (8.0-11.0); Platelet Count 254 10^3/uL (130-400); RBC 3.94 10^6/uL (3.93-5.22); RDW 11.1 % (11.7-14.6); RDW-SD 34.7 fL; WBC 7.14 10^3/uL (4.4-10.8)
[2022-09-07] MEDS: Chlorthalidone 25 MG TAB 12.5 MG PO (07:48)
[2022-09-07] MEDS: Calcium Carbonate 1.25 GM TAB PO (07:49)
[2022-09-07 07:53] LABS: ALT 13 U/L (14-59); AST 21 U/L (15-37); Albumin 3.3 g/dL (3.4-5.0); Alkaline Phosphatase 54 U/L (46-116); Anion Gap 5.6 mmol/L (3-11); BUN 6 mg/dL (7-18); Bilirubin, Total 0.7 mg/dL (0.2-1.0); CO2 30.4 mmol/L (21.0-32.0); CREATININE 0.5 mg/dL (0.55-1.02); Chloride 87 mmol/L (98-107); Estimated GFR 97.14 (mL/min/1.73m2); Glucose 81 mg/dL (74-106); Magnesium 1.5 mg/dL (1.8-2.4); Potassium 3.4 mmol/L (3.5-5.1); Total Protein 6.1 g/dL (6.4-8.2)
[2022-09-07 07:56] LABS: Sodium 123 mmol/L (136-145)
[2022-09-07] MEDS: Enoxaparin 30 MG/0.3 ML SYR SC (07:58)
[2022-09-07] MEDS: Potassium Chloride 10 MEQ TABCR PO (07:58)
--- NOTE | 2022-09-07 10:10 | IN_ITS ---
Date of service: 09/07/22 Time of Service: 10:10 PT Notes Visit Reasons: Hyponatremia, Ataxia Physical Therapy Inpatient Initial Evaluation Date: 09/07/2022 Referring Doctor: Abiel Garcia MD PT Orders: PT CONSULT: Fall safety assessment Precautions: Fall. Standard. Activity as tolerated. Patient Profile/Admitting Diagnosis: Patient us a 76-year-old female who presented to the ED on 09/06/2022 due to increasing weakness and confusion. CT/CTA of the brain was negative for any avute intracranial abnormality. Patient was admitted to the medsur unit with diagnoses of acute hyponatremia, COPD, ataxia, and mild memory disturbance. PMHX: All Active Problems? Acute hyponatremia (Acute) Ataxia (Acute) Respiratory failure with hypoxia (Acute) Bronchiectasis (Acute) COPD (chronic obstructive pulmonary disease) (Chronic) Bronchiolitis obliterans (Acute) Recurrent urinary tract infection (Acute) Closed trimalleolar fracture of right ankle (Acute) Trochanteric bursitis, left hip (Acute 05/15/17) Adhesive capsulitis of left shoulder (Acute 05/15/17) Trochanteric bursitis of left hip (Chronic) Medical History? Anxiety and depression Breast cancer Carotid artery stenosis Flank pain Frailty HTN (hypertension) Hyperlipidemia Insomnia Lumbar disc disease Mild memory disturbance Osteoarthritis Osteoporosis Prediabetes UTI (urinary tract infection) Vaginal atrophy Widened pulse pressure Social History/Home Situation: Lives with in a private home. Independent with all aspects of ADLs priro to admission. Equipment Owned/DME: None Subjective: Daughter points out that her mother has not been eating so well chronically . Daughter states patient had MRI of her abdominal area last Saturday and had to drink 2 containers of the testing fluid prior to procedure which has made patient have a bout of diarrhea since later that day. She has felt weaker and confused since then. Daughter added that her mother is alone during the day as her step dad works. They are both agreeable to having PT come in for a short time to work on balance. Patient states that she has fallen 2-3x in the past year. Objective: General Observation: Very low BMI. Cachexic. IV through L UE. Oxygen supplementaton at 2L per minute via NC. Trunk lean to R in sittting. Mental Status: Alert and oriented as to person, place, time, and purpose. Able to pay attention, focus, and respond appropriately. Pain: Denies Vital Signs: [facility] ROM: Right Upper Extremity: Shoulder Flexion WFL. Shoulder abduction WFL. Elbow flexion WFL. Wrist flexion WFL. Functional opening and closing of hand WFL. Left Upper Extremity: Shoulder Flexion WFL. Shoulder abduction WFL. Elbow flexion WFL. Wrist flexion WFL. Functional opening and closing of hand WFL. Right Lower Extremity: Hip flexion WFL. Hip abduction WFL. Knee flexion WFL. Ankle dorsiflexion to neutral only. Ankle plantarflexion WFL. Left Lower Extremity: Hip flexion WFL. Hip abduction WFL. Knee flexion WFL. Ankle dorsiflexion WFL. Ankle plantarflexion WFL. Strength: Right Upper Extremity: Shoulder flexors 4-/5. Shoulder abductors 4-/5. Elbow flexors 4-/5. Elbow extensors 4-/5. [employer] strong. Left Upper Extremity: Shoulder flexors 4-/5. Shoulder abductors 4-/5. Elbow flexors 4-/5. Elbow extensors 4-/5. [employer] Farmer strong. Right Lower Extremity: Hip flexors 3+/5. Hip abductors 3+/5. Knee flexors 4-/5. Knee extensors 4-/5. Ankle dorsiflexors 3-/5. Ankle plantarflexors 4-/5. Left Lower Extremity: Hip flexors 4/5. Hip abductors 4/5. Knee flexors 4/5. Knee extensors 4-/5. Ankle dorsiflexors 4-/5. Ankle plantarflexors 4-/5. Bed Mobility/Transfers: Sit to stand with stand by assist Stand to sit with contact guard assist Gait: Instructed patient with level surface ambulation of 200 feet requiring minimal assist using no assistive device. Path deviation to R. Decreased arm swing. to B UE. Steps appeared hesitant and unsteady. Directional changes were sketchy. With FWW, patient moved a lot better forward with minimal path deviation but had a hard time backing up. Posterior balance compromised. Balance: Static Sitting: Normal Dynamic Sitting: Good Static Standing: Fair Dynamic Standing: Fair Special Tests: Mobility Limitations Standardized Measure [facility] AM-PAC 6 clicks Basic Mobility Inpatient Short Form: Raw Score: 18 CMS Score: 47% deficit Informed Consent/Education: Patient was instructed in purpose of PT consult and plan of care. Agreeable to p jobeed with established PT POC to achieve personal goals. 30-second chair rise: 4 indicating at risk for falls 4-stage Balance test: Unable to maintain semi-tandem, full tandem, and one- legged stance for 10 seconds Assessment: R LE weaker than the L. New trunk lean to the right per daughter. 30-second chair rise and 4-stage balance test both indicate high risk for falls without use of assistive device. Appeared anxious about not being able to do good for this session. Patient presents with clinical signs and symptoms consistent with current/admitting diagnoses that have resulted to mobility limitations, gait instability, generalized weakness, and overall ADL decline as demonstrated by the following impairment level findings: 1. Decreased strength to R LE major muscle groups 2. Impaired sitting/standing balance 3. Impaired activity tolerance 4. New trunk lean to R 5. Path deviation to R 6. Anxiety Impairments are contributing to the following functional limitations: 1. Decline in bed mobility skills 2. Decline in transfer skills 3. Difficulty with ambulation without assistive device and physical assistance 4. Increased completion time for mobility ADL performance 5. Increased risk for falls 6. Difficulty with managing steps alone safely Patient is assessed as a [id number] moderate complexity based on the following: History: 76-year-old female with past medical history as indicated above Examination: Demonstrable impairment in strength, balance, and mobility level with underlying impairments and functional limitations as exhibited above as well as deficit score of 47% utilizing the [facility] Mobility Inpatient Short Form Presentation: Evolving Decision Makin moderate complexity Goals: Goals X1 week 1. Supine-Sit independent 2. Sit-Supine independent 3. Sit-Stand independent 4. Stand-Sit independent with FWW 5. Bed-Chair independent with FWW 6. Chair-Bed independent with FWW 7. Independent gait on level surface with use of FWW for at least 300 feet without report of pain nor dyspnea 8. Independent stair negotiation while holding onto B rails for at least 5 steps without report of pain nor dyspnea 9. Independent with home exercise program 10. Good static and dynamic standing balance/tolerance Plan of Care/Treatment Plan: 1-2x/day, 7 days/week x 1 week. Plan of care has been reviewed with the EAR[employer] YE[employer] TEACHER providing the service under Physical Therapy direction. Initiate Physical Therapy intervention for pain management as needed, strengthening, bed mobility, transfers, gait, stairs, balance training, and use of assistive device. DISCHARGE RECOMMENDATIONS: [] Home with no services [] [X] Home with services. Patient will benefit from home health PT services in order to progress mobility level using least restrictive assistive ambulatory device, assess home safety, identify additional equipment needs, and establish a functional maintenance program that will increase ability of patient to remain at home. [] Home with outpatient PT [] [] SNF for continued rehabilitation [] [] Employment Appeals Examiner Care [] [] SNF versus LTC based on ability to participate and progress [] TREATMENT CODE/TIME: 22014 x 20 minutes, 06248 x 26 minutes beginning at 10:10 AM. Thank you for the opportunity to participate in the care of this patient. Christel Kay PT, DPT, CLT [facility] [place], [place]
--- NOTE | 2022-09-07 10:43 | PDOC.CMIN ---
- If Service Date Differs Date of service: 09/07/22 Time of Service: 10:44 Care Management Initial Assess REASON FOR HOSPITALIZATION:: Acute hyponatremia, Ataxia PAST MEDICAL HISTORY/PAST SURGICAL HISTORY:: All Active Problems . Acute hyponatremia (Acute). Ataxia (Acute). Respiratory failure with hypoxia (Acute). Bronchiectasis (Acute). COPD (chronic obstructive pulmonary disease) (Chronic). Bronchiolitis obliterans (Acute). Recurrent urinary tract infection (Acute). Closed trimalleolar fracture of right ankle (Acute). Trochanteric bursitis, left hip (Acute 05/15/17). Adhesive capsulitis of left shoulder (Acute 05/15/17). Trochanteric bursitis of left hip (Chronic). Medical History . Anxiety and depression. Breast cancer. Carotid artery stenosis. Flank pain. Frailty. HTN (hypertension). Hyperlipidemia. Insomnia. Lumbar disc disease. Mild memory disturbance. Osteoarthritis. Osteoporosis. Prediabetes. UTI (urinary tract infection). Vaginal atrophy. Widened pulse pressure PREVIOUS FUNCTIONAL STATUS/SOCIAL/FAMILY SUPPORTS:: Lenka is and lives in [place] with her Raymond. Her daughter Desirae Boyle, lives in [place], [place] and is supportive. Lenka is retired, drives and is active and independent at baseline. CURRENT FUNCTIONAL STATUS:: Lenka was sitting in her chair visiting with family when CM met with her. She is awake, alert and easily engages in conversation with good humor. ADVANCE DIRECTIVES:: None on file, CM will offer forms. Has patient been provided with info about the portal/API?: Yes Did the patient sign up for the portal?: No CODE STATUS:: Full Code INSURANCE COVERAGE / FINANCIAL ISSUES:: [employer]. [employer] Supplemental [employer]. Medicare CURRENT HOME/COMMUNITY SERVICES/EQUIPMENT:: home O2; through [employer], [employer], [employer]. PRIMARY CARE PHYSICIAN:: ANA M Hernández. POTENTIAL DISCHARGE NEEDS:: Resume home O2 through [employer], follow up with PCP. PATIENT/FAMILY EDUCATION NEEDS:: Review discharge instructions, limitations, medications and plan to follow up with community providers. Discuss Ask Me Three and goals of self care. TRANSPORTATION:: Via private vehicle with family. PLAN:: Anticipate, Lenka will return home when ready per MD with [facility] services. She will follow up with her PCP and plan of care as prescribed. She will resume home O2 through [facility] [place]. She will transport home via private vehicle with family.
[2022-09-07] MEDS: Potassium Chloride 20 MEQ TABCR PO ×2 (12:28→17:00)
[2022-09-07] MEDS: MAGNESIUM SULFATE 4 GM/100 ML BAG IVPB (12:28)
--- NOTE | 2022-09-07 14:02 | W.PM.PROGNOT ---
Date of Service Date of service: 09/07/22 Time of Service: 14:02 Assessment and Plan Assessment and plan (1) Acute hyponatremia: Status: Acute Assessment and plan: in setting of chlorthalidone with decreased intake over the last several days. slowly improving while diurectic on hold institute free water restriction follow labs closely (2) Ataxia: Status: Acute Assessment and plan: Associated with acute hyponatremia clearing as this problem is corrected. Monitor clinically. No further imaging or evaluation for now. continue PT and OT (3) COPD (chronic obstructive pulmonary disease): Status: Chronic Assessment and plan: No evidence of exacerbation or hypoxemia. Continue outpatient inhaler therapy. (4) Mild memory disturbance: Assessment and plan: Slightly exacerbated with hyponatremia appearing to clear toward baseline at this time. discussed with DR Jorgensen Subjective Subjective Patient reports: no new complaints, feels better, tolerating liquids well, tolerating a regular diet and afebrile; denies nausea, vomiting or shortness of breath Exam Const General: cooperative, comfortable and no acute distress Nutritional Appearance: cachectic HENMT Head: normal to inspection and normocephalic Mouth: oral mucosae normal Resp Effort & Inspection: normal respiratory effort Auscultation: clear to auscultation bilaterally Cardio Rate: regular rate Rhythm: regular rhythm GI Inspection: normal to inspection Palpation: soft Skin General skin exam: no rashes or lesions noted Neuro General: patient alert and patient awake Cranial Nerves: CN's II-XI intact bilaterally Extrem General: normal to inspection, full ROM and no pedal edema Objective Last Vital Signs Temp 36.9 C 09/07/22 11:34 Pulse 92 H 09/07/22 11:34 Resp 16 09/07/22 11:34 BP 134/68 09/07/22 11:34 Pulse Ox 97 09/07/22 11:34 Laboratory Results - last 24 hr 09/06/22 09/06/22 09/06/22 21:25 21:25 21:25 WBC 7.67 RBC 4.10 Hgb 12.2 Hct 34.5 L MCV 84 MCH 29.8 MCHC 35.4 RDW 11.0 L Plt Count 282 MPV 9.2 Immature Gran % 0.4 Neutrophils % 70.6 Lymphocytes % 17.5 Monocytes % 11.0 Eosinophils % 0.1 Basophils % 0.4 Nucleated RBC % 0.0 Absolute Neutrophils 5.42 Absolute Lymphocytes 1.34 Absolute Monocytes 0.84 H Absolute Eosinophils 0.01 Absolute Basophils 0.03 VBG pH VBG pCO2 VBG pO2 VBG HCO3 VBG Total CO2 VBG O2 Saturation VBG Base Excess Sodium 118 L* Potassium 3.8 Chloride 80 L Carbon Dioxide 31.6 Anion Gap 6.4 BUN 7 Creatinine 0.6 Est GFR (CKD-EPI 2020) 92.97 Glucose 100 Calcium 9.0 Magnesium Total Bilirubin 0.8 AST 24 ALT 16 Alkaline Phosphatase 59 Ammonia 10 L Troponin I < 50 Total Protein 7.2 Albumin 3.9 TSH Urine Color Urine Clarity Urine pH Ur Specific [place] Urine Protein Urine Ketones Urine Blood Urine Nitrite Urine Bilirubin Urine Urobilinogen Ur Leukocyte Esterase Urine RBC Urine WBC Ur Epithelial Cells Urine Crystals Urine Bacteria Urine Casts Urine Mucus Ur Culture Indicated? Ur Random Sodium Urine Glucose COVID-19 Source SARS-CoV-2 (PCR) 09/06/22 09/06/22 09/06/22 21:25 21:25 23:10 WBC RBC Hgb Hct MCV MCH MCHC RDW Plt Count MPV Immature Gran % Neutrophils % Lymphocytes % Monocytes % Eosinophils % Basophils % Nucleated RBC % Absolute Neutrophils Absolute Lymphocytes Absolute Monocytes Absolute Eosinophils Absolute Basophils VBG pH 7.42 H VBG pCO2 50 VBG pO2 38 VBG HCO3 32 H VBG Total CO2 29 VBG O2 Saturation 77 VBG Base Excess 8 H Sodium Potassium Chloride Carbon Dioxide Anion Gap BUN Creatinine Est GFR (CKD-EPI 2020) Glucose Calcium Magnesium Total Bilirubin AST ALT Alkaline Phosphatase Ammonia Troponin I Total Protein Albumin TSH 1.52 Urine Color Yellow Urine Clarity Clear Urine pH 6.5 Ur Specific [place] 1.015 Urine Protein Negative Urine Ketones 40 H Urine Blood Trace-intact H Urine Nitrite Negative Urine Bilirubin Negative Urine Urobilinogen 0.2 Ur Leukocyte Esterase Negative Urine RBC 3-5 H Urine WBC Negative Ur Epithelial Cells Few Urine Crystals Negative Urine Bacteria Rare Urine Casts Negative Urine Mucus Negative Ur Culture Indicated? No Ur Random Sodium Urine Glucose Negative COVID-19 Source SARS-CoV-2 (PCR) 09/06/22 09/06/22 09/06/22 23:10 23:14 23:55 WBC RBC Hgb Hct MCV MCH MCHC RDW Plt Count MPV Immature Gran % Neutrophils % Lymphocytes % Monocytes % Eosinophils % Basophils % Nucleated RBC % Absolute Neutrophils Absolute Lymphocytes Absolute Monocytes Absolute Eosinophils Absolute Basophils VBG pH VBG pCO2 VBG pO2 VBG HCO3 VBG Total CO2 VBG O2 Saturation VBG Base Excess Sodium Potassium Chloride Carbon Dioxide Anion Gap BUN Creatinine Est GFR (CKD-EPI 2020) Glucose Calcium Magnesium Total Bilirubin AST ALT Alkaline Phosphatase Ammonia Troponin I < 50 Total Protein Albumin TSH Urine Color Urine Clarity Urine pH Ur Specific [place] Urine Protein Urine Ketones Urine Blood Urine Nitrite Urine Bilirubin Urine Urobilinogen Ur Leukocyte Esterase Urine RBC Urine WBC Ur Epithelial Cells Urine Crystals Urine Bacteria Urine Casts Urine Mucus Ur Culture Indicated? Ur Random Sodium 56 Urine Glucose COVID-19 Source Nasal/Nares SARS-CoV-2 (PCR) Negative 09/06/22 09/07/22 09/07/22 23:55 07:17 07:17 WBC 7.14 RBC 3.94 Hgb 11.5 Hct 33.6 L MCV 85 MCH 29.2 MCHC 34.2 RDW 11.1 L Plt Count 254 MPV 9.6 Immature Gran % Neutrophils % Lymphocytes % Monocytes % Eosinophils % Basophils % Nucleated RBC % Absolute Neutrophils Absolute Lymphocytes Absolute Monocytes Absolute Eosinophils Absolute Basophils VBG pH VBG pCO2 VBG pO2 VBG HCO3 VBG Total CO2 VBG O2 Saturation VBG Base Excess Sodium 121 L* 123 L* Potassium 3.4 L 3.4 L Chloride 84 L 87 L Carbon Dioxide 30.5 30.4 Anion Gap 6.5 5.6 BUN 7 6 L Creatinine 0.5 L 0.5 L Est GFR (CKD-EPI 2020) 97.14 97.14 Glucose 92 81 Calcium 8.0 L 8.0 L Magnesium 1.5 L Total Bilirubin 0.7 AST 21 ALT 13 L Alkaline Phosphatase 54 Ammonia Troponin I Total Protein 6.1 L Albumin 3.3 L TSH Urine Color Urine Clarity Urine pH Ur Specific [place] Urine Protein Urine Ketones Urine Blood Urine Nitrite Urine Bilirubin Urine Urobilinogen Ur Leukocyte Esterase Urine RBC Urine WBC Ur Epithelial Cells Urine Crystals Urine Bacteria Urine Casts Urine Mucus Ur Culture Indicated? Ur Random Sodium Urine Glucose COVID-19 Source SARS-CoV-2 (PCR)
--- NOTE | 2022-09-07 15:02 | PT.INTREAT ---
Date of service: 09/07/22 Time of Service: 14:17 PT Notes Visit Reasons: Hyponatremia, Ataxia Inpatient Physical Therapy Treatment Note [facility] Date: 09/07/2022 PRECAUTIONS: Activity as tolerated SUBJECTIVE: Lenka is pleasant and agreeable to participating in PT.? She states that she is feeling much better and less confused. OBJECTIVE:? PAIN: No c/o pain ? BED MOBILITY/TRANSFERS? Sit-stand: S? Stand-sit: S ? GAIT? Assistive Device: FWW? Weight bearing: Full Assist: S ? Distance:?400' ? Deviation: Gait unremarkable, 2L O2 NC ? ASSESSMENT:? Patient tolerated session well without complaint. She was able to tolerate a progression in gait distance with FWW and supervision, demonstrating unremarkable gait. PLAN: Continue with gait training and general conditioning for improved activity tolerance and mobility. TREATMENT CODE/TIME: 15 minutes; 37640 (14:17)
[2022-09-07] MEDS: Magnesium Oxide 400 MG TAB 800 MG PO (20:20)
[2022-09-07] MEDS: Atorvastatin 10 MG TAB PO (20:20)
[2022-09-07] MEDS: Budesonide/Formoterol 80/4.5 6.9 GM 60 PUFF INH IH (20:22)
[2022-09-07] MEDS: Gabapentin 300 MG CAP PO (22:06)
[2022-09-08] VITALS (9 sets, daily range): BP systolic 124–159; BP diastolic 61–68; PULSE 74–92; RESP 16–18; TEMP 35.6–37.1; O2SAT 98–100
[2022-09-08 07:41] LABS: BUN 6 mg/dL (7-18); CREATININE 0.5 mg/dL (0.55-1.02); Calcium 7.9 mg/dL (8.5-10.1); Chloride 90 mmol/L (98-107); Estimated GFR 97.14 (mL/min/1.73m2); Glucose 87 mg/dL (74-106); Magnesium 2.5 mg/dL (1.8-2.4); Sodium 127 mmol/L (136-145)
[2022-09-08] MEDS: Magnesium Oxide 400 MG TAB 800 MG PO (08:00)
[2022-09-08] MEDS: Potassium Chloride 20 MEQ TABCR PO ×3 (08:01→16:42)
[2022-09-08] MEDS: Calcium Carbonate 1.25 GM TAB PO (08:02)
[2022-09-08] MEDS: Enoxaparin 30 MG/0.3 ML SYR SC (08:02)
--- NOTE | 2022-09-08 10:00 | PT.INTREAT ---
PT Notes Visit Reasons: Hyponatremia, Ataxia Inpatient Physical Therapy Treatment Note [facility] Date: 09/08/22 PRECAUTIONS:Standard SUBJECTIVE: Pt reports that she is doing well and she is ready to go home. OBJECTIVE: Sit-stand: SBA Stand-sit: SBA GAIT Assistive Device: First walk without assistive device small loop with CGA slight sway from L to R when walking at times. No LOB. Pt then utilized the FWW with CGA to SBA approx 200ft. Pt was on 2L oxygen NC. Weight bearing: Full Assist: CGA Distance: Small loop no device approx 200ft with FWW THEREX: Seated rowing x 10, LAQx 10, and marchingx 10. ASSESSMENT: Pt is somewhat anxious when not having a device so I issued her a FWW for home which was set up for her during the session today. PLAN: Pt is waiting on lab work and if that comes back fine she will be discharged today from what pt reports to me today. TREATMENT CODE/TIME: 9:25-10:00 (61) TAx2
[2022-09-08] MEDS: Budesonide/Formoterol 80/4.5 6.9 GM 60 PUFF INH IH ×2 (10:24→19:52)
[2022-09-08] MEDS: Tiotropium Bromide-Respimat 10 PUFF INH 2 PUFF IH (10:25)
--- NOTE | 2022-09-08 16:41 | PGE_ITS ---
Date of Service Date of service: 09/08/22 Time of Service: 16:41 Assessment and Plan Assessment and plan (1) Acute hyponatremia: Status: Acute Assessment and plan: in setting of chlorthalidone with decreased intake over the last several days. slowly improving while diurectic on hold institute free water restriction follow labs closely (2) Ataxia: Status: Acute Assessment and plan: Associated with acute hyponatremia clearing as this problem is corrected. Monit or clinically. No further imaging or evaluation for now. continue PT and OT (3) COPD (chronic obstructive pulmonary disease): Status: Chronic Assessment and plan: No evidence of exacerbation or hypoxemia. Continue outpatient inhaler therapy. (4) Mild memory disturbance: Assessment and plan: Slightly exacerbated with hyponatremia appearing to clear toward baseline at this time. discussed with DR Jorgensen Subjective Subjective Patient reports: no new complaints, tolerating liquids well, voiding w/o difficulty and afebrile Exam Const General: cooperative, comfortable and no acute distress Nutritional Appearance: cachectic HENMT Head: normal to inspection and normocephalic Mouth: oral mucosae normal Resp Effort & Inspection: normal respiratory effort Auscultation: clear to auscultation bilaterally Cardio Rate: regular rate Rhythm: regular rhythm GI Inspection: normal to inspection Palpation: soft Skin General skin exam: no rashes or lesions noted Neuro General: patient alert and patient awake Cranial Nerves: CN's II-XI intact bilaterally Extrem General: normal to inspection, full ROM and pedal edema (trace) bilaterally Objective Last Vital Signs Temp 37.1 C 09/08/22 15:39 Pulse 82 09/08/22 15:39 Resp 16 09/08/22 15:39 BP 159/67 H 09/08/22 15:39 Pulse Ox 100 09/08/22 15:39 Laboratory Results - last 24 hr 09/06/22 09/08/22 09/08/22 23:10 05:35 06:15 Sodium 127 L Potassium 4.0 Chloride 90 L Carbon Dioxide 38.0 H Anion Gap -1.0 L BUN 6 L Creatinine 0.5 L Est GFR (CKD-EPI 2020) 97.14 Glucose 87 Calcium 7.9 L Magnesium Cancelled 2.5 H Urine Chloride 56
[2022-09-08] MEDS: Atorvastatin 10 MG TAB PO (20:28)
[2022-09-08] MEDS: Normal Saline Flush 10 ML SYR (20:29)
[2022-09-08] MEDS: Gabapentin 300 MG CAP PO (21:39)
[2022-09-09 03:48] VITALS: BP 120/57; PULSE 87; RESP 16; TEMP 37.5; O2SAT 98
[2022-09-09 06:42] VITALS: BP 132/64; PULSE 85; RESP 18; TEMP 36.3; O2SAT 99
[2022-09-09 06:51] LABS: HCT 31.5 % (36.0-46.0); HGB 10.5 g/dL (11.2-15.7); MCH 29.2 pg (27.0-33.0); MCHC 33.3 % (32.0-36.0); MCV 88 fL (80-95); MPV 9.9 fL (8.0-11.0); Platelet Count 229 10^3/uL (130-400); RDW 11.5 % (11.7-14.6); RDW-SD 37.3 fL
[2022-09-09 07:08] LABS: Anion Gap -1.4 mmol/L (3-11); BUN 8 mg/dL (7-18); CO2 36.4 mmol/L (21.0-32.0); CREATININE 0.6 mg/dL (0.55-1.02); Calcium 8.3 mg/dL (8.5-10.1); Chloride 93 mmol/L (98-107); Estimated GFR 92.97 (mL/min/1.73m2); Glucose 94 mg/dL (74-106); Potassium 4.7 mmol/L (3.5-5.1); Sodium 128 mmol/L (136-145)
[2022-09-09] MEDS: Tiotropium Bromide-Respimat 10 PUFF INH 2 PUFF IH (07:12)
[2022-09-09] MEDS: Budesonide/Formoterol 80/4.5 6.9 GM 60 PUFF INH IH (07:12)
[2022-09-09 07:29] VITALS: PULSE 90
--- NOTE | 2022-09-09 09:25 | PT.INTREAT ---
PT Notes Visit Reasons: Hyponatremia, Ataxia Inpatient Physical Therapy Treatment Note [facility] Date: 09/09/22 PRECAUTIONS:Standard OBJECTIVE: Sit-stand: CGA/SBA pt c/o some slight dizziness with standing which resolved very quickly. Stand-sit: SBA GAIT Assistive Device: FWW CGA/SBA 2L oxygen Distance: Approx 200ft THEREX: Seated UE circles, horz abd, rowing x 10, LAQx 10, marchingx 10, hip abd x 10. ASSESSMENT: Pt tolerated today's session well was able to tolerate more exercises today. PLAN: Cont as per PT POC. TREATMENT CODE/TIME: 9:05-9:25 (15) TA
[2022-09-09] MEDS: Enoxaparin 30 MG/0.3 ML SYR SC (09:44)
[2022-09-09] MEDS: Magnesium Oxide 400 MG TAB 800 MG PO (09:44)
[2022-09-09] MEDS: Calcium Carbonate 1.25 GM TAB PO (09:44)
--- NOTE | 2022-09-09 12:30 | W.PM.DS.N ---
Date of service: 09/09/22 Time of Service: 12:31 DS: Diagnosis Discharge Diagnosis (1) Acute hyponatremia: Status: Acute (2) Ataxia: Status: Acute (3) COPD (chronic obstructive pulmonary disease): Status: Chronic (4) Mild memory disturbance: Discharge Plan Disposition Patient Disposition: Home W/Home Health Services Condition: Improving Discharge Details Reason For Visit: Hyponatremia, Ataxia Admit Date/Time: 09/06/22 23:10 Admit Provider: Abiel Garcia Attending Provider: Abiel Garcia Primary Care Provider: Tom Fuchs Hospital Course Hospital Course: This is a 76-year-old female patient with past history of COPD on chronic oxygen and hypertension with treatment on chlorthalidone but no potassium supplement who presented to the ED after noted the patient having acute worsening of confusion and weakness which had been progressive over the last couple of weeks.? Patient had had decreased intake but was continuing to take her medicines.? In the ED she was very unstable described as ataxic and was confused not knowing her past history when questioned.? She was thought to have a possible stroke and CTA was performed which was unrevealing.? Lab did reveal a low sodium at 118 and patient was given a fluid bolus of normal saline with some clearing of her confusion.? By the time she was admitted she was more alert and stated that she did realize that she was more confused earlier.? Overall she was comfortable and not complaining of shortness of breath and had no focal neurological complaints or headache.? She was admitted to med/surg. Her chlorthalidone was discontinued. Her IV fluids stopped. she did state that she had been drinking extra water as instructed also, which is unusual for her. Her sodium continued to improve and she returned to baseline. She was safely reambulated with physical therapy with recommendations for home [facility] at discharge. she is stable and at her baseline and ready for discharge to home. Her sodium has improved to 128. she will follow with pcp for further monitoring, labs, and medication changes. she was advised to hold chlorthalidone. discharge discussed with DR Jorgensen. Home Meds and New Rx's Prescriptions: Continued (DME) Oxygen Tank See Rx Instructions .ROUTE .MEDSUPPLY Qty: 1 Rx Instructions: As directed, continue oxygen on exertion and at HS. cyclosporine [Restasis] 1 EACH dropperette 1 drp Ophthalmic BID atorvastatin 10 mg tablet 10 mg PO DAILY Premarin 0.625 mg/gram cream 0.625 mg vaginal DAILY Rx Instructions: off 5 days; repeat cycle Dulera 100-5 mcg/actuation HFA aerosol inhaler 2 puff inhalation BID Qty: 1 5RF Spiriva Respimat 2.5 mcg/actuation mist 2 puff inhalation DAILY Qty: 1 5RF alendronate 70 MG tablet 1 tab PO DIRECTED gabapentin 300 MG capsule 300 mg PO HS calcium carbonate [Oyster Shell Calcium 500] 1.25 GM tablet 0.5 gm PO DAILY 0RF Discontinued chlorthalidone 25 mg Tablet 0.5 tab PO DAILY Discharge Instructions Instructions: Hyponatremia (DC) Stand Alone Forms: Nursing Discharge Form Referrals: Tom Fuchs PA [Primary Care Provider] - (Please call Saturday to make a follow up appointment.) Activity:: Activity as Tolerated Equipment/Supplies:: No Equipment Needed Diet:: As Tolerated Discharge Orders Discharge Orders: Discharge Order (Routine); Ordered 09/09/22 Ordered By: Zainab Sam Discharge Data Discharge Date/Time-TO BE ENTERED AT DEPARTURE: 09/09/22 13:55 DS: Summary Time Spent with Patient providing and/or coordinating discharge services: Greater than 30 minutes Status at Discharge Functional status at discharge: uses cane/walker Overall status at discharge: patient is progressing back to baseline Mental Status: mental status grossly normal Speech and Movement: speech and movement normal Mood: congruent mood Affect: normal affect Exam Const General: cooperative, comfortable and no acute distress Nutritional Appearance: thin Orientation: alert, awake and oriented x3 HENMT Head: normal to inspection and normocephalic Mouth: oral mucosae normal Resp Effort & Inspection: normal respiratory effort Auscultation: clear to auscultation bilaterally Cardio Rate: regular rate Rhythm: regular rhythm GI Inspection: normal to inspection Palpation: soft Skin General skin exam: no rashes or lesions noted Neuro General: patient alert, patient awake, patient oriented x3 and no focal motor deficits Extrem General: normal to inspection, full ROM and no pedal edema Psych Mental Status: mental status grossly normal Speech and Movement: speech and movement normal Mood: congruent mood Affect: normal affect DS: Data Vitals/I&O Vitals and I&O: Vital Signs Temperature 36.3 C L 09/09/22 06:42 Temperature Source Tympanic 09/09/22 06:42 Pulse 85 12/11/22 06:42 Pulse Rhythm Regular 09/09/22 10:44 Respiratory Rate 18 09/09/22 06:42 Respiratory Effort 09/09/22 10:44 Respiratory Depth Normal 09/09/22 10:44 Respiratory Pattern Normal 09/09/22 10:44 Blood Pressure 132/64 09/09/22 06:42 Blood Pressure Position Sitting 09/06/22 19:07 Pulse Oximetry 99 09/09/22 06:42 Oxygen Delivery Method Room Air 09/09/22 06:42 Oxygen Flow Rate 0 09/09/22 06:42 Pain Level 0 09/09/22 03:48 Intake & Output 09/08/22 09/09/22 09/09/22 23:59 11:59 23:59 Intake Total 160 / 400 Balance 160 / 300 Weight 37.6 kg Intake: Oral 160 / 400 Other: Urine Color Yellow Urine Appearance Clear Clear Urine Odor None Voiding Methods Toilet Data Completed and Pending Labs on day of discharge: Labs from last 24 hours 09/09/22 09/09/22 05:42 05:42 WBC 5.60 RBC 3.60 L Hgb 10.5 L Hct 31.5 L MCV 88 MCH 29.2 MCHC 33.3 RDW 11.5 L Plt Count 229 MPV 9.9 Sodium 128 L Potassium 4.7 Chloride 93 L Carbon Dioxide 36.4 H Anion Gap -1.4 L BUN 8 Creatinine 0.6 Est GFR (CKD-EPI 2020) 92.97 Glucose 94 Calcium 8.3 L PFSH All Active Problems Acute hyponatremia (Acute) Ataxia (Acute) Respiratory failure with hypoxia (Acute) Bronchiectasis (Acute) COPD (chronic obstructive pulmonary disease) (Chronic) Bronchiolitis obliterans (Acute) Recurrent urinary tract infection (Acute) Closed trimalleolar fracture of right ankle (Acute) Trochanteric bursitis, left hip (Acute 05/15/17) Adhesive capsulitis of left shoulder (Acute 05/15/17) Trochanteric bursitis of left hip (Chronic) Medical History Anxiety and depression Breast cancer Carotid artery stenosis Flank pain Frailty HTN (hypertension) Hyperlipidemia Insomnia Lumbar disc disease Mild memory disturbance Osteoarthritis Osteoporosis Prediabetes UTI (urinary tract infection) Vaginal atrophy Widened pulse pressure Social History Smoking/Tobacco Use Status: Never Smoking risk assessment performed?: Yes Alcohol Intake: never Drug use: Never Substance use type: does not use Do you feel safe at home: Yes Do you feel safe in your relationship?: Yes
[2022-09-09 12:39] VITALS: BP 144/68; PULSE 87; RESP 16; TEMP 36.6; O2SAT 94
--- NOTE | 2022-09-09 12:41 | PDOC.HHF2F ---
Home Health Referral Home Health Orders Clinical synopsis of why skilled professionals are needed: to progress mobility level using least restrictive assistive ambulatory device, assess home safety, identify additional equipment needs, and establish a functional maintenance program that will increase ability of patient to remain at home. Medical diagnosis necessitation home health referral: hyponatremia, ataxia Physical Therapist: Check all that apply Increase strength & endurance for safe mobility at home: Ordered To design/establish home maintenance program: Ordered Fall reduction therapy program for patient with history of frequent falls: Ordered Home safety evaluation and teaching/gait training including stair management (if applicable): Ordered Other: Patient will benefit from home health PT services in order to progress mobility level using least restrictive assistive ambulatory device, assess home safety, identify additional equipment needs, and establish a functional maintenance program that will increase ability of patient to remain at home. Home Bound Status Assistance of another person (Describe assistance and medical necessity): Demonstrable impairment in strength, balance, and mobility level with underlying impairments and functional limitations as exhibited above as well as deficit score of 47% utilizing the [facility] Mobility Inpatient Short Form Describe why leaving home would require a considerable and taxing effort: Safety Concerns: describe (gait instability, generalized weakness) Encounter Date and Reason: I certify that a FTF encounter for this patient was performed on September 09, 2022 and that such encounter was related to the primary reason the patient requires home health services. The encounter was conducted in the following manner: By me as the certifying physician, PSYCHOLOGIST PERSONNEL, Certification And Authentication I certify that I composed the above information based on my clinical judgment relating to this patient's medical condition Name of Provider that will be monitoring home health services: Tom Fuchs
[2022-09-09 13:00] VITALS: PULSE 89
--- NOTE | 2022-09-09 15:56 | CMDISCH_ITS ---
- If Service Date Differs Date of service: 09/09/22 Time of Service: 15:56 LACE Index Scoring Tool - Questions: Length of Stay (in days): 3 Acuity (Admit via E.D.?): Yes Comorbidities: Chronic Pulmonary Disease, Any Tumor E.D. Visits: 2 - Answers: Total Score: 13 Risk of Readmission: High Risk Care Management Discharge Reason for Hospitalization: Acute hyponatremia, Ataxia Discharge Plan: Lenka will return home today with new orders for HH PT. Her f linda will drive her home via private vehicle. She will follow up with her PCP and discharge plan of care. Patient/Family Education Needs: Review discharge instructions and limitations, discussion of self care needs including ask me three. Services Needed at Discharge: Home Health Care Services (HH PT)
== END 2022-09-09 13:55 | disposition home health service (06) | DRG 641 ==
LOC: ER 23:38 → MS 09-07 00:41
PROVIDERS: Internal Medicine; Nurse Practitioner Acute Care; Admitting Provider Family Medicine; Emergency Provider Student in an Organized Health Care Education/Training Program; PCP Physician Assistant Medical; Visit Provider Family Medicine
DX: E87.1 Hypo-osmolality and hyponatremia (principal); R27.0 Ataxia, unspecified; E87.6 Hypokalemia; J44.9 Chronic obstructive pulmonary disease, unspecified; R41.3 Other amnesia; I10 Essential (primary) hypertension; Z99.81 Dependence on supplemental oxygen; Z79.899 Other long term (current) drug therapy; M70.62 Trochanteric bursitis, left hip; F41.8 Other specified anxiety disorders; I65.29 Occlusion and stenosis of unspecified carotid artery; Z85.3 Personal history of malignant neoplasm of breast; E78.5 Hyperlipidemia, unspecified; G47.00 Insomnia, unspecified; M81.0 Age-related osteoporosis without current pathological fracture; R73.03 Prediabetes
CPT/HCPCS: 36415; 70496; 70498; 80048; 80053; 82805; 85027; 87635; 93005; 94640; 96360; 97162; 97530; 99285; 81003; 81015; 82140; 82436; 83735; 84300; 84443; 84484; 85025; 93010; 94760; 99223; 99233; 99239; J1650; J3475; J3490

== ENCOUNTER → 2022-09-10 13:16 | Outpatient (BNVA) | payer MEDICARE, SELFPAY | PROVIDERS: PCP Physician Assistant Medical; Referring Provider Physician Assistant Medical; Visit Provider Nurse Practitioner Gerontology | DX: Z09 Encounter for follow-up examination after completed treatment for conditions other than malignant neoplasm (principal); Z87.440 Personal history of urinary (tract) infections | CPT/HCPCS: 99441 ==

== ENCOUNTER → 2022-09-25 12:18 | Outpatient (BNVA) | payer MEDICARE, SELFPAY | PROVIDERS: PCP Physician Assistant Medical; Referring Provider Physician Assistant Medical; Visit Provider Surgery | DX: R64 Cachexia (principal); R13.10 Dysphagia, unspecified; E87.1 Hypo-osmolality and hyponatremia; E87.6 Hypokalemia; R27.0 Ataxia, unspecified; J44.9 Chronic obstructive pulmonary disease, unspecified; I10 Essential (primary) hypertension | CPT/HCPCS: 99215; 99243 ==

== ENCOUNTER 2022-09-28 03:05 | Outpatient (CLI) | payer MEDICARE, SELFPAY ==
[2022-09-28 14:23] LABS: Abs Immature Grans 0.01 10^3/uL (0.0-0.06); Absolute Basophil Count 0.07 10^3/uL (0.0-0.2); Absolute Eosinophil Count 0.01 10^3/uL (0.0-0.7); Absolute Lymphocyte Count 1.37 10^3/uL (1.2-3.4); Absolute Monocyte Count 0.64 10^3/uL (0.1-0.8); Absolute Neutrophil Count 3.59 10^3/uL (1.2-6.7); Basophils % 1.2; Eosinophils % 0.2; HCT 40.7 % (36.0-46.0); HGB 12.7 g/dL (11.2-15.7); Immature Grans % 0.2; Lymphocytes % 24.1; MCH 29.3 pg (27.0-33.0); MCHC 31.2 % (32.0-36.0); MCV 94 fL (80-95); MPV 9.8 fL (8.0-11.0); Monocytes % 11.2; Neutrophils % 63.1; Platelet Count 278 10^3/uL (130-400); RBC 4.33 10^6/uL (3.93-5.22); RDW 12.3 % (11.7-14.6); RDW-SD 43.1 fL; WBC 5.69 10^3/uL (4.4-10.8)
[2022-09-28 15:33] LABS: ALT 17 U/L (14-59); AST 15 U/L (15-37); Albumin 3.7 g/dL (3.4-5.0); Alkaline Phosphatase 58 U/L (46-116); Anion Gap 1.1 mmol/L (3-11); BUN 9 mg/dL (7-18); Bilirubin, Total 0.3 mg/dL (0.2-1.0); CO2 37.9 mmol/L (21.0-32.0); CREATININE 0.7 mg/dL (0.55-1.02); Calcium 9.5 mg/dL (8.5-10.1); Chloride 102 mmol/L (98-107); Estimated GFR 89.58 (mL/min/1.73m2); Ferritin 102 ng/mL (8-252); Glucose 111 mg/dL (74-106); Potassium 4.6 mmol/L (3.5-5.1); Sodium 141 mmol/L (136-145); TSH (W/Ref FT4) 0.68 uIU/mL (0.36-3.74); Total Protein 7.2 g/dL (6.4-8.2)
== END 2022-09-28 03:06 | disposition home or self-care (01) ==
LOC: LBO 03:05
PROVIDERS: PCP Physician Assistant Medical; Visit Provider Surgery
DX: E78.5 Hyperlipidemia, unspecified (principal); E87.1 Hypo-osmolality and hyponatremia; I10 Essential (primary) hypertension; R64 Cachexia
CPT/HCPCS: 36415; 80053; 82728; 83735; 84443; 85025

== ENCOUNTER 2022-10-10 01:38 | Outpatient (CLI) | payer MEDICARE, SELFPAY ==
[2022-10-10] MEDS: Simethicone/Sod Bicarb/Cit Ac, 4 gram PACKET 1 PACKET PO (10:24)
[2022-10-10] MEDS: Barium Sulfate 700 MG TAB PO (10:24)
[2022-10-10] MEDS: Barium Sulfate 60% W/V 355 ML BTL PO (10:25)
[2022-10-10] MEDS: Barium Sulfate 98% W/W 140 ML BTL PO (10:25)
--- NOTE | 2022-10-10 10:25 | DI.RAD_ITS ---
Exam(s) RF BARIUM SWALLOW SINGLE EXAM: RF BARIUM SWALLOW SINGLE CLINICAL HISTORY: f/u abnormal CT/dysphagia/can't EGD,abnl wt loss,r93.3,r13.10,r63.4 TECHNIQUE: 2D and realtime digital imaging was performed. CONTRAST MATERIAL: Thick and thin barium and barium tablet were administered. COMPARISON: CR XR THORACIC SPINE COMPLETE from 01/09/2022 FINDINGS: Lateral automation control integrator view of the neck shows normal alignment. Soft tissues are unremarkable. Airway appear s intact. Degenerative disc changes and facet degenerative changes are present. PA automation control integrator view of the chest shows normal heart size. There is marked pulmonary hyperinflation. Patient swallowed barium without difficulty. No aspiration was observed. There are tertiary contrac tions after the swallow in the distal half of the esophagus. There are 2 diverticula of the distal e sophagus, the smaller measuring approximately 5 millimeters in the larger measuring 14 millimeters. There is narrowing at the gastroesophageal junction where the barium tablet stuck, ventrally passing into the stomach.. No visible mass or ulceration. Stomach and duodenum are grossly normal. No deepa roesophageal reflux visualized. Fluoro time: 1 minutes 58 seconds IMPRESSION: Focal ring like narrowing distal esophagus were barium tablet stuck. Tertiary contractions of the esophagus and 2 small distal esophageal diverticula. RADIATION DOSE DELIVERED: venkat Kirkpatrick=12 mGy
== END 2022-10-10 01:58 ==
PROVIDERS: PCP Physician Assistant Medical; Visit Provider Surgery
DX: E78.5 Hyperlipidemia, unspecified; E87.6 Hypokalemia; I10 Essential (primary) hypertension; I65.29 Occlusion and stenosis of unspecified carotid artery; J42 Unspecified chronic bronchitis; J44.9 Chronic obstructive pulmonary disease, unspecified; J47.9 Bronchiectasis, uncomplicated; M81.0 Age-related osteoporosis without current pathological fracture; R13.10 Dysphagia, unspecified; R27.0 Ataxia, unspecified; R54 Age-related physical debility; R63.4 Abnormal weight loss; R64 Cachexia; R73.03 Prediabetes; R93.3 Abnormal findings on diagnostic imaging of other parts of digestive tract
CPT/HCPCS: 74220; J3490

== ENCOUNTER 2022-11-06 16:18 | Outpatient (REF) | payer MEDICARE, SELFPAY ==
[2022-11-06 16:24] LABS: Anion Gap 1.2 mmol/L (3-11); BUN 10 mg/dL (7-18); CO2 37.8 mmol/L (21.0-32.0); CREATININE 0.7 mg/dL (0.55-1.02); Calcium 9.3 mg/dL (8.5-10.1); Chloride 102 mmol/L (98-107); Estimated GFR 89.58 (mL/min/1.73m2); Glucose 125 mg/dL (74-106); Sodium 141 mmol/L (136-145)
== END 2022-11-06 16:19 | disposition home or self-care (01) ==
LOC: NCHCN 16:18
PROVIDERS: PCP Physician Assistant Medical; Visit Provider Physician Assistant Medical
DX: E87.1 Hypo-osmolality and hyponatremia (principal)
CPT/HCPCS: 80048

== ENCOUNTER 2022-11-14 01:07 | Outpatient (CLI) | payer MEDICARE, SELFPAY ==
--- NOTE | 2022-11-14 07:30 | DI.US_ITS ---
APPROVED REPORT EXAM: Comprehensive 2D, Doppler, and color-flow Echocardiogram Patient Location: Out-Patient Electrical Manufacturing Technician: Mariela Thurman RDCS (AE) Indications: COPD, mary ann loss, abnormal CT, Pulmonary HTN Other Information Study Quality: Adequate Conclusion Normal left ventricular wall thickness and chamber size. Estimated ejection fraction is 60 to 65%. Wall motion is normal Normal right ventricular size and systolic function Both atria are normal in size Trileaflet aortic valve, mildly sclerotic without stenosis or regurgitation Estimated right ventricular systolic pressure is 45 mmHg Wall motion Left Ventricle The left ventricle is normal size. The left ventricular systolic function is normal. The left ventric ular ejection fraction is within the normal range. There is normal left ventricular wall thickness. T here is normal LV segmental wall motion. There is no ventricular septal defect visualized. LVEF is 60 -65%. Right Ventricle The right ventricle is normal size. The right ventricular systolic function is normal. The RVSP is 45 .3 mmHg. Atria The left atrium size is normal. The right atrium size is normal. The interatrial septum is intact wit h no evidence for an atrial septal defect. Aortic Valve The Aortic valve is mildly sclerotic. Aortic valve is trileaflet. There is no aortic valvular stenosi s. No aortic regurgitation is present. Mitral Valve The mitral valve is normal in structure. No evidence of mitral valve stenosis. Trace mitral regurgita tion. Tricuspid Valve The tricuspid valve is normal in structure. There is no tricuspid valve stenosis. Trace tricuspid reg urgitation. Pulmonic Valve The pulmonary valve is normal in structure. There is no pulmonic valvular stenosis. Trace to mild pul truong regurgitation. Great Vessels The aortic root is normal in size. Ascending aorta is not well visualized. Aortic arch is not well vi sualized. IVC is normal in size and collapses >50% with inspiration. Pericardium There is no pericardial effusion. 2D Dimensions IVSD d PLAX 0.69 cm F: 0.6-1.0 LV Vol A2C d MOD 51.9 mL LVPW d PLAX 0.69 cm F: 0.6 - 1.0 LV Vol A4C d MOD 54.0 mL LVID d PLAX 3.82 cm F: 3.8 - 5.2 LA vol/ BSA A2C s A-L 23.7 mL/m2 LVDs 2.50 cm F: 2.2 - 3.5 LA vol/ BSA A4C s A-L 17.8 mL/m2 Ao Root d 2.40 cm F: 2.7 - 3.3 LA Vol/ BSA Biplane s A-L 20.8 mL/m2 RA Area A4C 5.71 cm2 LA Area A4C s MOD 10.00 cm2 RA Vol/ BSA A4C s A-L 8.1 mL/m2 LA Area A2C s MOD 11.37 cm2 LV EF Teichholz 63.2 % LV EF A4C MOD 60.8 % LVEF (Mckeon's) 63.19 % F: 54 - 74 LV EF A2C MOD 65.4 % LV Volume 48.59 mL F: 46 - 106 LV EF Biplane MOD 63.2 % LV Volume Index 37.66 mL/m2 F: 29 - 61 SV 34.60 mL LV Vol Biplane MOD 54.8 mL SV Index 26.80 mL/m2 FS 33.60 % LV Diastology E/A Ratio 1.1 MV E Vmax 1.02 (0.4-1.3 m/s) MV A Vmax 0.90 (0.4-1.3 m/s) MV E/A Ratio 1.09 Aortic Valve LVOT Area 2.93 cm2 AoV Area Vmax 2.50 cm2 LVOT Vmax 1.21 m/s AoV Area/ BSA (Vmax) 1.93 cm2/m2 LVOT Mean Osmany. 0.76 m/s KATHERIN Mean Osmany. 2.25 cm2 LVOT Peak Grad 5.9 mmHg KATHERIN Mean Osmany. Index 1.74 cm2/m2 LVOT Mean Grad 2.8 mmHg LVOT VTI 0.229 m LVOT Diam s 1.90 cm AoV Vmax 1.42 m/s Velocity Ratio 0.85 AoV Mean Osmany. 0.98 m/s AoV Peak Grad 8.0 mmHg LVOT SV 67.16 mL AoV Mean Grad 4.3 mmHg AoV VTI 0.257 m AoV Area VTI 2.61 cm2 AoV Area/ BSA (VTI) 2.02 cm/m2 Mitral Valve MV DT 180 (160-240 msec) MV PHT 52 msec MV Area PHT 4.22 cm2 MV VTI 0.289 m MV Area VTI 2.32 (4.0-6.0 cm2) Pulmonary Valve PV Vmax 1.23 (0.5-1.5 m/s) RVOT Peak Gr. 5.27 mmHg PV Peak Grad 6.0 mmHg RVOT Mean Gr. 2.10 mmHg PV Mean Grad 2.6 mmHg RVOT VTI 0.193 m PV VTI 0.209 m RVOT Vmax 1.15 m/s Tricuspid Valve TR Peak Grad 42.2 mmHg TR Vmax 3.25 m/s RA Pressure 3.00 mmHg RVSP (TR) 45.3 mmHg
== END 2022-11-14 01:27 ==
LOC: DI 01:07
PROVIDERS: PCP Physician Assistant Medical; Visit Provider Surgery
DX: E78.5 Hyperlipidemia, unspecified (principal); E87.1 Hypo-osmolality and hyponatremia; E87.6 Hypokalemia; I10 Essential (primary) hypertension; I65.29 Occlusion and stenosis of unspecified carotid artery; J06.9 Acute upper respiratory infection, unspecified; J42 Unspecified chronic bronchitis; J44.9 Chronic obstructive pulmonary disease, unspecified; J47.9 Bronchiectasis, uncomplicated; J96.91 Respiratory failure, unspecified with hypoxia; R09.89 Other specified symptoms and signs involving the circulatory and respiratory systems; R13.10 Dysphagia, unspecified; R27.0 Ataxia, unspecified; R54 Age-related physical debility; R63.4 Abnormal weight loss; R64 Cachexia; R73.03 Prediabetes; R93.3 Abnormal findings on diagnostic imaging of other parts of digestive tract
CPT/HCPCS: 93306

== ENCOUNTER → 2023-05-06 12:51 | Outpatient (BNVA) | payer MEDICARE, SELFPAY | PROVIDERS: PCP Physician Assistant Medical; Referring Provider Physician Assistant Medical; Visit Provider Surgery | DX: S51.811A Laceration without foreign body of right forearm, initial encounter (principal); S61.411A Laceration without foreign body of right hand, initial encounter; W55.03XA Scratched by cat, initial encounter | CPT/HCPCS: 99202; 99213 ==

== ENCOUNTER → 2023-05-07 11:41 | Outpatient (BNVA) | payer MEDICARE, SELFPAY | PROVIDERS: PCP Physician Assistant Medical; Referring Provider Physician Assistant Medical; Visit Provider Surgery | DX: Z51.89 Encounter for other specified aftercare (principal); L98.9 Disorder of the skin and subcutaneous tissue, unspecified | CPT/HCPCS: 99211 ==

== ENCOUNTER → 2023-05-13 12:57 | Outpatient (BNVA) | payer MEDICARE, SELFPAY | PROVIDERS: PCP Physician Assistant Medical; Referring Provider Physician Assistant Medical; Visit Provider Surgery | DX: S50.811D Abrasion of right forearm, subsequent encounter (principal); W55.03XD Scratched by cat, subsequent encounter; R64 Cachexia; B37.0 Candidal stomatitis | CPT/HCPCS: 99213 ==

== ENCOUNTER → 2023-07-09 12:47 | Outpatient (BNVA) | payer MEDICARE, SELFPAY | PROVIDERS: PCP Physician Assistant Medical; Referring Provider Physician Assistant Medical; Visit Provider Physician Assistant Surgical | DX: J44.9 Chronic obstructive pulmonary disease, unspecified; J47.9 Bronchiectasis, uncomplicated; J96.91 Respiratory failure, unspecified with hypoxia; I27.20 Pulmonary hypertension, unspecified | CPT/HCPCS: 99214 ==

== ENCOUNTER 2023-07-11 01:13 | Outpatient (CLI) | payer MEDICARE, SELFPAY ==
[2023-07-11 10:43] LABS: Vitamin B12 384 pg/mL (193-986)
[2023-07-15 06:16] LABS: Riboflavin (Vitamin B2), P 7 mcg/L (1-19)
[2023-07-16 14:17] LABS: Nicotinuric Acid <5.0 ng/mL
[2023-07-16 22:29] LABS: Pyridoxal 5-Phosphate (PLP), P 3 mcg/L (5-50)
[2023-07-17 02:01] LABS: Thiamine (Vitamin B1), WB 145 nmol/L (70-180)
[2023-07-22 10:11] LABS: Biotin (Vitamin B7), Serum 1340.7 pg/mL
== END 2023-07-11 01:14 | disposition home or self-care (01) ==
LOC: LBO 01:13
PROVIDERS: PCP Physician Assistant Medical; Visit Provider Physician Assistant Surgical
DX: R13.10 Dysphagia, unspecified (principal)
CPT/HCPCS: 36415; 84252; 84591; 82607; 84207; 84425

== ENCOUNTER 2023-08-08 09:48 | Outpatient (RCR) | payer MEDICARE, SELFPAY ==
--- NOTE | 2023-08-08 13:00 | HOLTER_ITS ---
APPROVED REPORT Conclusion This is a 48-hour Holter monitor Rhythm throughout was sinus with an average heart rate of 85. Minimum was 72, maximum 115 There were very rare isolated atrial and ventricular ectopic beats There was one self-limited atrial run 5 beats in duration There was no atrial fibrillation, no high-grade AV block, no pauses greater than 3 seconds Patient symptoms of chest pressure had no correlation to any dysrhythmia
== END 2023-08-29 23:59 | disposition home or self-care (01) ==
LOC: CARDOPNVT 09:48
PROVIDERS: PCP Physician Assistant Medical; Visit Provider Physician Assistant Medical
DX: R00.0 Tachycardia, unspecified (principal); R42 Dizziness and giddiness
CPT/HCPCS: 93227; 93225; 93226

== ENCOUNTER 2023-09-18 10:30 | Outpatient (CLI) | payer MEDICARE, SELFPAY ==
[2023-09-18 10:40] LABS: Vitamin B12 596 pg/mL (193-986)
[2023-09-18 10:42] LABS: Folate > 20.0 ng/mL (8.6-20.0)
[2023-09-24 14:17] LABS: Pyridoxal 5-Phosphate (PLP), P 18 mcg/L (5-50)
== END 2023-09-18 10:31 | disposition home or self-care (01) ==
LOC: LBO 10:31
PROVIDERS: PCP Physician Assistant Medical; Visit Provider Physician Assistant Surgical
DX: E53.8 Deficiency of other specified B group vitamins (principal); E53.9 Vitamin B deficiency, unspecified; E53.1 Pyridoxine deficiency
CPT/HCPCS: 36415; 82607; 82746; 84207

== ENCOUNTER 2023-10-23 15:14 | Outpatient (REF) | payer MEDICARE, SELFPAY ==
[2023-10-23 20:28] LABS: Absolute Basophil Count 0.07 10^3/uL (0.0-0.2); Absolute Lymphocyte Count 1.21 10^3/uL (1.2-3.4); Absolute Neutrophil Count 3.97 10^3/uL (1.2-6.7); Basophils % 1.2; HCT 39.8 % (36.0-46.0); HGB 12.5 g/dL (11.2-15.7); Lymphocytes % 20.7; MCH 29.7 pg (27.0-33.0); MCHC 31.4 % (32.0-36.0); MCV 95 fL (80-95); MPV 10.8 fL (8.0-11.0); Monocytes % 10.3; Neutrophils % 67.8; Platelet Count 226 10^3/uL (130-400); RBC 4.21 10^6/uL (3.93-5.22); RDW 12.2 % (11.7-14.6); RDW-SD 42.7 fL; WBC 5.85 10^3/uL (4.4-10.8)
[2023-10-23 20:40] LABS: ALT 21 U/L (14-59); AST 19 U/L (15-37); Albumin 3.7 g/dL (3.4-5.0); Alkaline Phosphatase 51 U/L (46-116); Anion Gap 2.2 mmol/L (3-11); BUN 11 mg/dL (7-18); Bilirubin, Total 0.3 mg/dL (0.2-1.0); CO2 36.8 mmol/L (21.0-32.0); CREATININE 0.6 mg/dL (0.55-1.02); Chloride 102 mmol/L (98-107); Estimated GFR 92.39 (mL/min/1.73m2); Glucose 82 mg/dL (74-106); Potassium 4.5 mmol/L (3.5-5.1); Sodium 141 mmol/L (136-145); Total Protein 7.1 g/dL (6.4-8.2)
== END 2023-10-23 15:15 | disposition home or self-care (01) ==
LOC: NCHCN 15:14
PROVIDERS: PCP Physician Assistant Medical; Visit Provider Physician Assistant Medical
DX: R63.4 Abnormal weight loss (principal)
CPT/HCPCS: 80053; 85025

== ENCOUNTER → 2024-01-07 14:47 | Outpatient (BNVA) | payer MEDICARE, SELFPAY | PROVIDERS: PCP Physician Assistant Medical; Referring Provider Physician Assistant Medical; Visit Provider Student in an Organized Health Care Education/Training Program | DX: J44.9 Chronic obstructive pulmonary disease, unspecified (principal); J47.9 Bronchiectasis, uncomplicated; J96.91 Respiratory failure, unspecified with hypoxia; I27.20 Pulmonary hypertension, unspecified | CPT/HCPCS: 99214 ==

== ENCOUNTER → 2024-07-15 14:39 | Outpatient (BNVA) | payer MEDICARE, SELFPAY | PROVIDERS: PCP Physician Assistant Medical; Referring Provider Physician Assistant Medical; Visit Provider Physician Assistant Surgical | DX: J44.9 Chronic obstructive pulmonary disease, unspecified (principal); R64 Cachexia; K14.6 Glossodynia; J96.11 Chronic respiratory failure with hypoxia; J47.9 Bronchiectasis, uncomplicated; J96.91 Respiratory failure, unspecified with hypoxia; Z99.81 Dependence on supplemental oxygen | CPT/HCPCS: 99214 ==

== ENCOUNTER 2024-07-23 09:45 | Outpatient (CLI) | payer MEDICARE, SELFPAY ==
[2024-07-23 10:38] LABS: Vitamin B12 597 pg/mL (193-986)
[2024-07-27 11:34] LABS: Pyruvic Acid, B 0.13 mmol/L (0.08-0.16); Pyruvic Acid, B 1.1 mg/dL (0.7-1.4)
[2024-07-28 07:22] LABS: Riboflavin (Vitamin B2), P 13 mcg/L (1-19)
[2024-07-28 08:13] LABS: Thiamine (Vitamin B1), WB 177 nmol/L (70-180)
[2024-07-29 01:41] LABS: Nicotinamide 9.3 ng/mL (5.0-48.0); Nicotinuric Acid <5.0 ng/mL
[2024-07-29 09:32] LABS: Biotin (Vitamin B7), Serum 1498.8 pg/mL
== END 2024-07-23 09:46 | disposition home or self-care (01) ==
LOC: LBO 10:09
PROVIDERS: PCP Physician Assistant Medical; Visit Provider Physician Assistant Surgical
DX: K14.6 Glossodynia (principal)
CPT/HCPCS: 36415; 84252; 84591; 82607; 84210; 84425

== ENCOUNTER 2024-12-01 14:29 | Outpatient (REF) | payer MEDICARE, SELFPAY ==
[2024-12-01 15:53] LABS: Abs Immature Grans 0.03 10^3/uL (0.0-0.06); Absolute Basophil Count 0.07 10^3/uL (0.0-0.2); Absolute Eosinophil Count 0.19 10^3/uL (0.0-0.7); Absolute Lymphocyte Count 0.94 10^3/uL (1.2-3.4); Absolute Monocyte Count 0.62 10^3/uL (0.1-0.8); Absolute Neutrophil Count 5.14 10^3/uL (1.2-6.7); Eosinophils % 2.7 %; HGB 12.7 g/dL (11.2-15.7); Immature Grans % 0.4 %; Lymphocytes % 13.4 %; MCHC 31.8 % (32.0-36.0); MCV 95 fL (80-95); MPV 10.5 fL (8.0-11.0); Monocytes % 8.9 %; Neutrophils % 73.6 %; Platelet Count 229 10^3/uL (130-400); RBC 4.23 10^6/uL (3.93-5.22); RDW-SD 41.8 fL; WBC 6.99 10^3/uL (4.4-10.8)
[2024-12-01 16:42] LABS: ALT 17 U/L (14-59); AST 18 U/L (15-37); Albumin 3.7 g/dL (3.4-5.0); Alkaline Phosphatase 65 U/L (46-116); Anion Gap -0.3 mmol/L (3-11); BUN 12 mg/dL (7-18); CO2 39.3 mmol/L (21.0-32.0); CREATININE 0.8 mg/dL (0.55-1.02); Calcium 9.8 mg/dL (8.5-10.1); Chloride 102 mmol/L (98-107); Estimated GFR 75.37 (mL/min/1.73m2); Glucose 94 mg/dL (74-106); Potassium 4.7 mmol/L (3.5-5.1); Sodium 141 mmol/L (136-145); Vitamin D 25 Total 48.8 ng/mL (30-100)
== END 2024-12-01 14:30 | disposition home or self-care (01) ==
LOC: NCHCN 14:29
PROVIDERS: PCP Physician Assistant Medical; Visit Provider Physician Assistant Medical
DX: R63.4 Abnormal weight loss (principal); F41.8 Other specified anxiety disorders
CPT/HCPCS: 80053; 82306; 85025

== ENCOUNTER 2024-12-06 15:20 | Emergency (ER) | payer MEDICARE, SELFPAY ==
[2024-12-06 15:24] VITALS: BP 173/67; PULSE 94; RESP 16; TEMP 36.6; O2SAT 98
--- NOTE | 2024-12-06 16:00 | DI.RAD_ITS ---
Exam(s) XR ELBOW RT COMPLETE EXAM: XR ELBOW RT COMPLETE CLINICAL HISTORY: R elbow pain. TECHNIQUE: 2D digital imaging was performed. COMPARISON: No exams were available for comparison FINDINGS: 3 views No evidence of fracture nor elbow dislocation. Radial head and neck appear unremarkable. Mild corti sina irregularity at the level the lateral epicondyle may be related to pre-existing epicondylitis. IMPRESSION: No acute osseous findings in the elbow. DATA REPOSITORY: RADIATION DOSE DELIVERED:
--- NOTE | 2024-12-06 16:00 | DI.RAD_ITS ---
Exam(s) XR SHOULDER RT COMPLETE 2+V EXAM: XR SHOULDER RT COMPLETE 2+V CLINICAL HISTORY: R shoulder pain. TECHNIQUE: 2D digital imaging was performed. COMPARISON: CR RIGHT SHOULDER COMPLETE from 06/10/2012 FINDINGS: Four views There is a comminuted impacted fracture of the right humeral head-neck, also including the greater tu berosity. There is no dislocation glenohumeral joint. No osseous lesions. Ipsilateral clavicle and AC joint appear unremarkable. IMPRESSION: Comminuted impacted fracture of the humeral head-neck. DATA REPOSITORY: RADIATION DOSE DELIVERED:
--- NOTE | 2024-12-06 16:02 | ED.GENADUL_ITS ---
Discharge Plan Disposition Patient Disposition: Home Condition: Stable Discharge Details Clinical Impression: Closed fracture of right proximal humerus Primary Care Provider: Tom Fuchs ED Provider: Raul Casas Home Meds and New Rx's Prescriptions: No Action fluoxetine 10 mg capsule 10 mg PO DAILY propylene glycol [Systane Balance] 1 drp ophthalmic (eye) DIRECTED cholecalciferol (vitamin D3) 1 tab PO DAILY cyanocobalamin (vitamin B-12) 2,000 mcg lozenge 2,000 mcg PO DAILY Qty: 100 6RF Dulera 100-5 mcg/actuation HFA aerosol inhaler 2 puff inhalation BID Qty: 1 5RF (DME) Oxygen Tank See Rx Instructions .Route Rx Instructions: As directed mirtazapine 15 mg tablet 15 mg PO DAILY Incruse Ellipta 62.5 mcg/actuation blister with device 1 inh inhalation DAILY Qty: 30 12RF Spiriva Respimat 2.5 mcg/actuation mist 2 puff inhalation DAILY Qty: 1 12RF calcium carbonate [Oyster Shell Calcium 500] 1.25 GM tablet 0.5 gm PO DAILY 0RF Discharge Instructions Instructions: Upper Arm Fracture ED Additional Instructions: You were seen in the emergency department for the comminuted fracture of your proximal right humerus or upper arm bone. You need to use the sling for immobilization and comfort, rest, ice the area often over the next few days. Take 650 mg of Tylenol every 6 hours, care home in between Tylenol dosings please take 400 mg of ibuprofen also on a 6-hour schedule. I have spoken to orthopedics and they will see you in clinic for follow-up, if you have not heard from them by Saturday please call their office for scheduling timeline. Please return to the emergency department for complete neurovascular compromise of the right arm. Referrals: [facility] [Provider Group] Tom Fuchs PA [Primary Care Provider] - Discharge Data Discharge Date/Time-TO BE ENTERED AT DEPARTURE: 12/06/24 17:54 HPI General Date/Time Provider Initiated Documentation: 12/06/24 15:50 . HPI Narrative: 78 year-old female presents to ED today by POV/ambulating with her with a chief complaint of R shoulder pain after a fall on ice in driveway with onset this afternoon. Quality described as very painful, can move it a minimal amount, mostly focal around proximal humerus, some pain in elbow, no radiation to crepitus, ecchymosis, neck pain, headstrike, LOC, numbness/tingling distal to elbow. Severity is described as severe. Palliating factors include nothing attempted yet. Provoking factors include nothing specific. Events leading up to the incident/Associated Symptoms: Patient is R-hand dominant. Patient not anticoagulated. Related Data Home Medications ?Medication ?Instructions ?Recorded ?Confirmed calcium carbonate (Oyster Shell 0.5 gm PO DAILY 01/07/18 12/06/24 Calcium 500) mometasone-formoterol HFA 100 2 puff inhalation BID #1 inh 06/07/21 12/06/24 mcg-5 mcg/actuation aerosol inhaler (Dulera) Oxygen 09/20/22 12/06/24 cyanocobalamin (vitamin B-12) 2,000 mcg PO DAILY #100 ea 07/09/23 12/06/24 2,000 mcg lozenges cholecalciferol (vitamin D3) 1 tab PO DAILY 11/04/23 12/06/24 fluoxetine 10 mg capsule 10 mg PO DAILY 11/04/23 12/06/24 propylene glycol [Systane Balance] 1 drp ophthalmic (eye) DIRECTED 11/04/23 12/06/24 mirtazapine 15 mg tablet 15 mg PO DAILY 03/04/24 12/06/24 umeclidinium 62.5 mcg/actuation 1 inh inhalation DAILY #30 ea 09/02/24 12/06/24 blister powder for inhalation (Incruse Ellipta) tiotropium bromide 2.5 2 puff inhalation DAILY #1 inh 11/12/24 12/06/24 mcg/actuation mist for inhalation (Spiriva Respimat) Previous Rx's ?Medication ?Instructions ?Recorded calcium carbonate (Oyster Shell 0.5 gm PO DAILY 01/07/18 Calcium 500) mometasone-formoterol HFA 100 2 puff inhalation BID #1 inh 06/07/21 mcg-5 mcg/actuation aerosol inhaler (Dulera) cyanocobalamin (vitamin B-12) 2,000 mcg PO DAILY #100 ea 07/09/23 2,000 mcg lozenges umeclidinium 62.5 mcg/actuation 1 inh inhalation DAILY #30 ea 09/02/24 blister powder for inhalation (Incruse Ellipta) tiotropium bromide 2.5 2 puff inhalation DAILY #1 inh 11/12/24 mcg/actuation mist for inhalation (Spiriva Respimat) Allergies Allergy/AdvReac Type Severity Reaction Status Date / Time Sulfa (Sulfonamide Allergy Intermediate Hives Unverified 12/06/24 15:29 Antibiotics) General Stated Complaint: Orthopedic MOIRA: 3 Review of Systems All systems reviewed & are unremarkable except as noted in HPI and below Exam Narrative Exam Narrative: GENERAL APPEARANCE: Well-nourished, non-toxic, awake and alert, atraumatic, no acute distress. SKIN: Warm, pink, dry, intact, without rashes/lesions/ulcerations. HEAD: Normocephalic, atraumatic, normal hair distribution for gender/age. EYES: Normal conjunctiva, no exudates on lids/lashes. ENT: Nares patent, no circumoral cyanosis, no facial swelling NECK: Supple, trachea midline, painless cervical ROM. LUNGS/CHEST: Non-labored respirations, normal A/P diameter, symmetrical expansion, no chest wall deformity HEART (CV/PV): Regular rate and rhythm without murmur, no peripheral edema, no JVD. ABDOMEN: Soft, non-distended, no guarding. MSK: Normal ROM, no swelling/deformity to bilateral UEs or LEs, moving all extremities without weakness, no cyanosis, spine midline without tenderness, normal curvature, RUE: Tenderness at the proximal right humerus without crepitus, no ecchymosis, right radial pulse 2+, mild tenderness to mid humerus, mild tenderness to the right elbow, able to supinate/pronate, sensation intact to the right hand, public address systems mechanic strength 5/5, no midline cervical vertebral tenderness/crepitus/step-offs NEURO: Mental Status AAOx4 - alert to person, place, time, events No facial droop, no forehead involvement. Motor: No focal weakness - strength 5/5 in bilateral UEs and LEs, proximal and distal, symmetric. Sensory: sensation intact to light touch globally. Gait normal: patient ambulated without ataxia into ED room. PSYCH: euthymic, cooperative, pleasant, appropriate speech Course Vital Signs Vital signs: Vital Signs Temperature 36.6 C 12/06/24 15:24 Pulse 94 H 12/06/24 15:24 Respiratory Rate 16 12/06/24 15:24 Blood Pressure 173/67 H 12/06/24 15:24 Pulse Oximetry 98 12/06/24 15:24 Temperature 36.6 C 12/06/24 15:24 Pulse 94 H 12/06/24 15:24 Respiratory Rate 16 12/06/24 15:24 Blood Pressure 173/67 H 12/06/24 15:24 Pulse Oximetry 98 12/06/24 15:24 Oxygen Delivery Method Room Air 12/06/24 15:24 Oxygen Flow Rate 0 12/06/24 15:24 Pain Level 4 12/06/24 15:24 Medical Decision Making This dictation utilizes [id number] dictation software and may contain unedited grammatical errors. 78 year-old female presents to ED today by POV/ambulating with her with a chief complaint of R shoulder pain after a fall on ice in driveway with onset this afternoon. Quality described as very painful, can move it a minimal amount, mostly focal around proximal humerus, some pain in elbow, no radiation to crepitus, ecchymosis, neck pain, headstrike, LOC, numbness/tingling distal to elbow. Severity is described as severe. Palliating factors include nothing attempted yet. Provoking factors include nothing specific. Events leading up to the incident/Associated Symptoms: Patient is R-hand dominant. Patients' medical history: Hypertension, history of breast cancer, osteoporosis, osteoarthritis, hyperlipidemia, prediabetes, COPD, cachexia, bronchiectasis, ataxia. Family and social history: Lives with , eats normal diet, no recent travel no sick contact, no IVDU or EtOH use. Pertinent exam findings / vital signs include tenderness to the head of the right humerus, mild tenderness around the right elbow neurovascularly intact distally with right radial pulse 2+, able to supinate/pronate, no midline cervical vertebral tenderness/crepitus/step-offs. Special tests of the shoulder not performed due to pain Differential / pathologies of concern include fracture, rotator cuff arthropathy. Diagnostic studies of: -X-ray right shoulder, x-ray right elbow, humerus 1 view. -Proximal humerus fracture Interventions of: -Sling, arrange follow-up with orthopedics. ED Course/Assessment/Plan: 78-year-old female suffered a fall having a comminuted proximal right humerus fracture through the head neck, orthopedics is aware and they will follow-up in clinic for possible surgical planning though the patient has likely poor bone density from osteoporosis and osteoarthritis. I did marriage counselor minister on icing and adequate dosing of Tylenol and NSAIDs, I am not prescribing narcotics as the patient is at high risk for falls and further injury, strict return criteria for any signs of neurovascular compromise. Findings not consistent with head strike, ICH, vertebral injury, neurovascular compromise of right. Disposition of closed fracture of right proximal humerus. Patient verbalized understanding of the plan and return to ED criteria and engaged in shared decision making. Medical Records Medical records reviewed: Yes I reviewed the patient's medical records. Imaging Data Radiologic Study: Attestation: I personally reviewed and interpreted this imaging study as follows: Imaging: X-Ray Radiologist's impression: EXAM: XR SHOULDER RT COMPLETE 2+V CLINICAL HISTORY: R shoulder pain. TECHNIQUE: 2D digital imaging was performed. COMPARISON: CR RIGHT SHOULDER COMPLETE from 06/10/2012 FINDINGS: Four views There is a comminuted impacted fracture of the right humeral head-neck, also including the greater tuberosity. There is no dislocation glenohumeral joint. No osseous lesions. Ipsilateral clavicle and AC joint appear unremarkable. IMPRESSION: Comminuted impacted fracture of the humeral head-neck. Radiologic Study #2: Attestation: I personally reviewed and interpreted this imaging study as follows: Imaging: X-Ray Radiologist's impression: EXAM: XR ELBOW RT COMPLETE CLINICAL HISTORY: R elbow pain. TECHNIQUE: 2D digital imaging was performed. COMPARISON: No exams were available for comparison FINDINGS: 3 views No evidence of fracture nor elbow dislocation. Radial head and neck appear unremarkable. Mild cortical irregularity at the level the lateral epicondyle may be related to pre-existing epicondylitis. IMPRESSION: No acute osseous findings in the elbow. Radiologic Study #3: Attestation: I personally reviewed and interpreted this imaging study as follows: Imaging: X-Ray Radiologist's impression: EXAM: XR HUMERUS RT CLINICAL HISTORY: whole humerus view. TECHNIQUE: 2D digital imaging was performed. COMPARISON: No exams were available for comparison FINDINGS: Single view There is a comminuted displaced and impacted fracture of the humeral head-neck, also involving the greater tuberosity. There is no dislocation of the glenohumeral joint. No other findings lower down in the humerus. IMPRESSION: Impacted comminuted fracture of the humeral head-neck and greater tuberosity Quality:SDOH Health Related Social Needs: No Data to Display PFSH All Active Problems (Updated 12/06/24 @ 17:22 by ANA M Lund) Closed fracture of right proximal humerus (Acute) DNR (do not resuscitate) (Acute) COLST: Completed 04/23/2024: DNI/DNI, do transfer to hospital for eval. Use abx and IV fluids. NO feeding tube. HF O2 OK, no Bipap (hate masks) and no intubation. Counseling regarding advance care planning and goals of care (Acute) Palliative care patient (Acute) Anxiety and depression (Chronic) Mild memory disturbance (Acute) Pulmonary cachexia due to COPD (Acute) Chronic respiratory failure with hypoxia, on home O2 therapy (Acute) Burning mouth syndrome (Acute) Vitamin B deficiency (Acute) Pyridoxal deficiency (Acute) B12 deficiency (Acute) Thrush (Acute) Cat scratch of right forearm (Acute) Pulmonary hypertension (Acute) Unexplained weight loss (Acute) Dysphagia (Acute) Hypokalemia due to excessive gastrointestinal loss of potassium (Acute) from CT contrast material Abnormal CT scan, esophagus (Acute) Cachexia (Acute) URI (upper respiratory infection) (Acute) Weight loss (Acute) Ataxia (Acute) Respiratory failure with hypoxia (Acute) Bronchiectasis (Acute) COPD (chronic obstructive pulmonary disease) (Chronic) Bronchiolitis obliterans (Acute) Recurrent urinary tract infection (Acute) Closed trimalleolar fracture of right ankle (Acute) Trochanteric bursitis, left hip (Acute 05/15/17) Adhesive capsulitis of left shoulder (Acute 05/15/17) Trochanteric bursitis of left hip (Chronic) Medical History (Updated 12/06/24 @ 17:22 by ANA M Lund) Pain of left hip joint Pain, joint, shoulder, left Senile asthenia Abdominal pain Abnormal weight loss Amnesia Intervertebral disc disorder Atrophic vaginitis Acute upper respiratory infection Essential hypertension Anxiety Hypo-osmolality and hyponatremia Hip pain Abnormal vaginal Pap smear Acute hyponatremia Breast cancer Lumbar disc disease Osteoporosis Osteoarthritis Insomnia Widened pulse pressure Carotid artery stenosis HTN (hypertension) Frailty Hyperlipidemia Prediabetes Flank pain UTI (urinary tract infection) Vaginal atrophy Surgical History (Updated 09/20/22 @ 11:24 by Fiona Saxena RN) S/P lumbar laminectomy History of lumpectomy of right breast followed by radiation for breast cancer Family History (Updated 10/02/23 @ 09:10 by Elina Rick) Mother Diabetes Father Pancreatic cancer Maternal Grandmother Diabetes Paternal Grandmother Diabetes Brother Diabetes Sister Heart disease Dementia Lung disorder Social History Smoking/Tobacco Use Status: Never Smoking risk assessment performed?: Yes Alcohol Intake: never Drug use: Never Substance use type: does not use Current gender identity: female Do you feel safe at home: Yes Do you feel safe in your relationship?: Yes
[2024-12-06] MEDS: Acetaminophen 325 MG TAB 650 MG PO (16:12)
[2024-12-06] MEDS: Ibuprofen 400 MG TAB PO (16:12)
--- NOTE | 2024-12-06 16:40 | DI.RAD_ITS ---
Exam(s) XR HUMERUS RT EXAM: XR HUMERUS RT CLINICAL HISTORY: whole humerus view. TECHNIQUE: 2D digital imaging was performed. COMPARISON: No exams were available for comparison FINDINGS: Single view There is a comminuted displaced and impacted fracture of the humeral head-neck, also involving the gr eater tuberosity. There is no dislocation of the glenohumeral joint. No other findings lower down in the humerus. IMPRESSION: Impacted comminuted fracture of the humeral head-neck and greater tuberosity DATA REPOSITORY: RADIATION DOSE DELIVERED:
[2024-12-06 16:45] VITALS: O2SAT 98
[2024-12-06 17:42] VITALS: BP 150/66; PULSE 89; RESP 16; O2SAT 99
== END 2024-12-06 17:54 | disposition home or self-care (01) ==
PROVIDERS: Emergency Provider Physician Assistant; PCP Physician Assistant Medical
DX: S42.201A Unspecified fracture of upper end of right humerus, initial encounter for closed fracture (principal); W00.0XXA Fall on same level due to ice and snow, initial encounter
CPT/HCPCS: 99284; 73030; 73060; 73080; 99283

== ENCOUNTER 2024-12-17 15:32 | Outpatient (CLI) | payer MEDICARE, SELFPAY ==
--- NOTE | 2024-12-17 13:30 | DI.RAD_ITS ---
Exam(s) XR ELBOW RT LIMITED EXAM: XR ELBOW RT LIMITED CLINICAL HISTORY: eval R elbow pain. TECHNIQUE: 2D digital imaging was performed of the left elbow. Two images were obtained. AP and la teral views were obtained. COMPARISON: CR XR ELBOW RT COMPLETE from 12/06/2024 CR XR HUMERUS RT from 12/06/2024 FINDINGS: BONES: There is a mildly distracted fracture of the olecranon process. No bony destructive lesion is seen. JOINTS: The elbow is normally aligned. There is a joint effusion. SOFT TISSUE: There is prominent soft tissue swelling of the distal forearm and elbow. IMPRESSION: Mildly distracted fracture through the olecranon with associated soft tissue swelling and joint effus ion. DATA REPOSITORY: RADIATION DOSE DELIVERED:
--- NOTE | 2024-12-17 13:30 | DI.RAD_ITS ---
Exam(s) XR SHOULDER RT COMPLETE 2+V EXAM: XR SHOULDER RT COMPLETE 2+V CLINICAL HISTORY: eval R prox humerus fracture. TECHNIQUE: 2D digital imaging was performed of the right shoulder. Two images were obtained. AP vi ews were obtained. COMPARISON: CR XR SHOULDER RT COMPLETE 2+V from 12/06/2024 FINDINGS: BONES: Given the slight changes in obliquity, there has been no significant change of the comminuted fracture involving the proximal humerus. There is displacement of the fracture fragments. The fract ure is also impacted. No bony destructive lesion is seen. JOINTS: No dislocation present. SOFT TISSUE: Normal. IMPRESSION: Stable alignment of the proximal right humeral fracture. DATA REPOSITORY: RADIATION DOSE DELIVERED:
== END 2024-12-17 15:33 | disposition home or self-care (01) ==
LOC: DIORS 15:32
PROVIDERS: PCP Physician Assistant Medical; Referring Provider Physician Assistant Medical; Visit Provider Student in an Organized Health Care Education/Training Program
DX: S42.201A Unspecified fracture of upper end of right humerus, initial encounter for closed fracture (principal); W00.9XXA Unspecified fall due to ice and snow, initial encounter; Y93.01 Activity, walking, marching and hiking; Z99.81 Dependence on supplemental oxygen; Z79.899 Other long term (current) drug therapy
CPT/HCPCS: 99204; 73030; 73070

== ENCOUNTER 2025-01-07 14:45 | Outpatient (CLI) | payer MEDICARE, SELFPAY ==
--- NOTE | 2025-01-07 13:30 | DI.RAD_ITS ---
Exam(s) XR SHOULDER RT COMPLETE 2+V EXAM: XR SHOULDER RT COMPLETE 2+V INDICATION: F/U R PROX HUM FX. COMPARISON: CR XR SHOULDER RT COMPLETE 2+V from 12/17/2024 TECHNIQUE: 2D digital imaging was performed. Two views. FINDINGS: Stable alignment of comminuted fracture of the proximal humerus. Glenohumeral joint is maintained. DATA REPOSITORY: RADIATION DOSE DELIVERED:
--- NOTE | 2025-01-07 13:30 | DI.RAD_ITS ---
Exam(s) XR ELBOW RT LIMITED EXAM: XR ELBOW RT LIMITED CLINICAL HISTORY: R ELBOW FX. TECHNIQUE: 2D digital imaging was performed. Three views. COMPARISON: CR XR ELBOW RT LIMITED from 12/17/2024 FINDINGS: The elbow is viewed within a posterior splint which obscures visualization of the bony detail. There is a question of further superior displacement of the olecranon fragment compared with the prio r exam. IMPRESSION: Question of increasing separation at the olecranon fracture. DATA REPOSITORY: RADIATION DOSE DELIVERED:
== END 2025-01-07 14:46 | disposition home or self-care (01) ==
LOC: DIORS 14:45
PROVIDERS: PCP Physician Assistant Medical; Referring Provider Physician Assistant Medical; Visit Provider Physician Assistant
DX: S42.201D Unspecified fracture of upper end of right humerus, subsequent encounter for fracture with routine healing; S52.021D Displaced fracture of olecranon process without intraarticular extension of right ulna, subsequent encounter for closed fracture with routine healing; X58.XXXD Exposure to other specified factors, subsequent encounter
CPT/HCPCS: 99213; 73030; 73070

== ENCOUNTER → 2025-01-13 11:10 | Outpatient (BNVA) | payer MEDICARE, SELFPAY | PROVIDERS: PCP Physician Assistant Medical; Referring Provider Physician Assistant Medical; Visit Provider Physician Assistant Surgical | DX: J44.9 Chronic obstructive pulmonary disease, unspecified; J96.11 Chronic respiratory failure with hypoxia; I27.20 Pulmonary hypertension, unspecified; J47.9 Bronchiectasis, uncomplicated; J96.91 Respiratory failure, unspecified with hypoxia | CPT/HCPCS: 36415; 94618; 99214 ==

== ENCOUNTER 2025-01-13 12:51 | Outpatient (REF) | payer MEDICARE, SELFPAY ==
[2025-01-13 14:02] LABS: NT-proBNP 387 pg/mL (<300)
== END 2025-01-13 12:52 | disposition home or self-care (01) ==
LOC: LBN 12:51
PROVIDERS: PCP Physician Assistant Medical; Visit Provider Physician Assistant Surgical
DX: I50.9 Heart failure, unspecified (principal); J96.11 Chronic respiratory failure with hypoxia; Z99.81 Dependence on supplemental oxygen; I27.20 Pulmonary hypertension, unspecified
CPT/HCPCS: 83880

== ENCOUNTER 2025-01-19 03:58 | Outpatient (CLI) | payer MEDICARE, SELFPAY ==
[2025-01-19] MEDS: Levalbuterol HFA 15 GM INH 4 PUFF IH (11:42)
[2025-01-19] MEDS: Inhaler, Assist Device 1 EACH MC (11:42)
--- NOTE | 2025-01-20 10:50 | W.PFT ---
Date of service: 01/19/25 Time of Service: 10:11 Pulmonary Function Test Result Indications: COPD Interpretation Spirometry: There is severe airflow limitation. No significant bronchodilator response. Lung Volumes: There is air trapping Diffusion Capacity: Reduced diffusion Airway Pressure: Increased airways resistance Impression Severe airflow obstruction with air trapping and a reduced diffusion. Clinical Correlation therefore is recommended.
== END 2025-01-19 03:59 | disposition home or self-care (01) ==
LOC: RT 03:59
PROVIDERS: PCP Physician Assistant Medical; Visit Provider Student in an Organized Health Care Education/Training Program
DX: J44.9 Chronic obstructive pulmonary disease, unspecified (principal); J47.9 Bronchiectasis, uncomplicated; J96.91 Respiratory failure, unspecified with hypoxia
CPT/HCPCS: 94060; 94726; 94729

== ENCOUNTER 2025-01-28 15:21 | Outpatient (CLI) | payer MEDICARE, SELFPAY ==
--- NOTE | 2025-01-28 13:15 | DI.RAD_ITS ---
Exam(s) XR ELBOW RT LIMITED EXAM: XR ELBOW RT LIMITED CLINICAL HISTORY: f/u R OLECRENON FX. TECHNIQUE: 2D digital imaging was performed of the left elbow. Two images were obtained. AP and la teral views were obtained. COMPARISON: CR XR ELBOW RT COMPLETE from 12/06/2024 CR XR ELBOW RT LIMITED from 12/17/2024 CR XR ELBOW RT LIMITED from 01/07/2025 FINDINGS: BONES: There is again seen a fracture through the olecranon. There is near anatomic alignment of the fracture. No bony destructive lesion is seen. JOINTS: There is near anatomic alignment of the olecranon fracture. The fracture line is still visua lized. There is a persistent joint effusion. SOFT TISSUE: Normal. IMPRESSION: Stable near anatomic alignment of the olecranon fracture. DATA REPOSITORY: RADIATION DOSE DELIVERED:
--- NOTE | 2025-01-28 13:30 | DI.RAD_ITS ---
Exam(s) XR SHOULDER RT COMPLETE 2+V EXAM: XR SHOULDER RT COMPLETE 2+V CLINICAL HISTORY: F/U R PROX HUMERUS FX. TECHNIQUE: 2D digital imaging was performed of the right shoulder. Three images were obtained. Gra jay rashey, Y-view and axillary views were obtained. COMPARISON: CR XR SHOULDER RT COMPLETE 2+V from 01/07/2025 FINDINGS: BONES: There is stable alignment of the proximal right humeral fracture. No bony destructive lesion is seen. JOINTS: No dislocation present. SOFT TISSUE: Normal. IMPRESSION: Stable alignment of the proximal right humeral fracture. DATA REPOSITORY: RADIATION DOSE DELIVERED:
== END 2025-01-28 15:22 | disposition home or self-care (01) ==
LOC: DIORS 15:21
PROVIDERS: PCP Physician Assistant Medical; Referring Provider Physician Assistant Medical; Visit Provider Physician Assistant
DX: S42.201D Unspecified fracture of upper end of right humerus, subsequent encounter for fracture with routine healing (principal); S52.021D Displaced fracture of olecranon process without intraarticular extension of right ulna, subsequent encounter for closed fracture with routine healing; X58.XXXD Exposure to other specified factors, subsequent encounter
CPT/HCPCS: 99213; 73030; 73070

== ENCOUNTER 2025-03-04 15:01 | Outpatient (CLI) | payer MEDICARE, SELFPAY ==
--- NOTE | 2025-03-04 14:45 | DI.RAD_ITS ---
Exam(s) XR ELBOW RT LIMITED EXAM: XR ELBOW RT LIMITED CLINICAL HISTORY: R elbow frac f/u. TECHNIQUE: 2D digital imaging was performed. COMPARISON: CR XR ELBOW RT LIMITED from 01/28/2025 FINDINGS: 3 views Again noted is the olecranon fracture site with stable alignment. The fracture line is still visible but without further displacement. Persistent joint effusion noted. No radiopaque foreign body. Ra dial head and neck unremarkable. IMPRESSION: Stable appearance. Fracture line still visible but without significant displacement. DATA REPOSITORY: RADIATION DOSE DELIVERED:
--- NOTE | 2025-03-04 14:45 | DI.RAD_ITS ---
Exam(s) XR SHOULDER RT COMPLETE 2+V EXAM: XR SHOULDER RT COMPLETE 2+V CLINICAL HISTORY: eval R shoulder frx. TECHNIQUE: 2D digital imaging was performed. COMPARISON: CR XR SHOULDER RT COMPLETE 2+V from 01/28/2025 FINDINGS: 3 views There is stable position and alignment at the fracture site in the humeral head and neck. There is n o dislocation of the glenohumeral joint. There appears to be some mild healing starting. IMPRESSION: Stable appearance DATA REPOSITORY: RADIATION DOSE DELIVERED:
== END 2025-03-04 15:02 | disposition home or self-care (01) ==
LOC: DIORS 15:02
PROVIDERS: PCP Physician Assistant Medical; Referring Provider Physician Assistant Medical; Visit Provider Student in an Organized Health Care Education/Training Program
DX: S52.021A Displaced fracture of olecranon process without intraarticular extension of right ulna, initial encounter for closed fracture (principal); S42.201A Unspecified fracture of upper end of right humerus, initial encounter for closed fracture; X58.XXXA Exposure to other specified factors, initial encounter
CPT/HCPCS: 99213; 73030; 73070

== ENCOUNTER 2025-06-02 15:15 | Outpatient (REF) | payer MEDICARE, SELFPAY ==
[2025-06-02 15:40] LABS: Abs Immature Grans 0.00 10^3/uL (0.0-0.06); HCT 35.6 % (36.0-46.0); HGB 10.7 g/dL (11.2-15.7); Immature Grans % 0.0 %; MCH 30.0 pg (27.0-33.0); MCHC 30.1 % (32.0-36.0); MCV 100 fL (80-95); MPV 10.8 fL (8.0-11.0); Platelet Count 201 10^3/uL (130-400); RBC 3.57 10^6/uL (3.93-5.22); RDW 11.3 % (11.7-14.6); RDW-SD 41.5 fL; WBC 5.47 10^3/uL (4.4-10.8)
[2025-06-02 16:15] LABS: ALT 21 U/L (14-59); AST 20 U/L (15-37); Albumin 3.8 g/dL (3.4-5.0); Alkaline Phosphatase 66 U/L (46-116); BUN 11 mg/dL (7-18); Bilirubin, Total 0.2 mg/dL (0.2-1.0); Calcium 9.9 mg/dL (8.5-10.1); Chloride 98 mmol/L (98-107); Estimated GFR 100.62 (mL/min/1.73m2); Glucose 86 mg/dL (74-106); NT-proBNP 310 pg/mL (<300); Potassium 4.4 mmol/L (3.5-5.1); Sodium 141 mmol/L (136-145); Total Protein 6.9 g/dL (6.4-8.2)
[2025-06-02 16:57] LABS: Anion Gap -0.1 mmol/L (3-11); CO2 43.1 mmol/L (21.0-32.0)
[2025-06-04 10:25] LABS: Iron 43 ug/dL (50-170); Total Iron Binding Capacity 331 ug/dL (250-450); Transferrin Sat 13 % (15-50)
[2025-06-04 10:47] LABS: Ferritin 110 ng/mL (8-252); Vitamin B12 530 pg/mL (193-986)
== END 2025-06-02 15:16 | disposition home or self-care (01) ==
LOC: NCHCN 15:15
PROVIDERS: PCP Physician Assistant Medical; Visit Provider Physician Assistant Medical
DX: R63.4 Abnormal weight loss (principal); D64.9 Anemia, unspecified; R60.0 Localized edema
CPT/HCPCS: 80053; 82607; 82728; 83540; 83550; 83880; 85025

== ENCOUNTER 2025-06-26 13:38 | Emergency (ER) | payer MEDICARE, SELFPAY ==
--- NOTE | 2025-06-26 13:45 | RT.EKG_ITS ---
APPROVED REPORT Exam: Resting ECG Reason for Exam: Syncopal Patient Location: E HR:90 bpm ECG Measurements Heart Rate 90 AXIS VA 108 P 91 QRSd 85 QRS 87 QT 336 T 60 QTc 411 Conclusion Sinus rhythm, rate 90 No interval abnormalities No STEMI Compared to priors, no significant changes
[2025-06-26 13:46] VITALS: BP 179/66; PULSE 101; RESP 20; TEMP 36.9; O2SAT 97
--- NOTE | 2025-06-26 15:55 | W.ED.GENAD ---
Discharge Plan Disposition Patient Disposition: Home Discharge Details Clinical Impression: Fracture of nasal bones, Fracture of left maxillary sinus, Fracture of left orbital floor, Fall, Forehead laceration Primary Care Provider: Tom Fuchs ED Provider: Munira Vallejo Home Meds and New Rx's Prescriptions: No Action fluoxetine 10 mg capsule 10 mg PO DAILY propylene glycol [Systane Balance] 1 drp ophthalmic (eye) DIRECTED cholecalciferol (vitamin D3) 1 tab PO DAILY cyanocobalamin (vitamin B-12) 2,000 mcg lozenge 2,000 mcg PO DAILY Qty: 100 6RF Dulera 100-5 mcg/actuation HFA aerosol inhaler 2 puff inhalation BID Qty: 1 5RF (DME) Oxygen Tank See Rx Instructions .Route Rx Instructions: As directed mirtazapine 15 mg tablet 15 mg PO DAILY budesonide 0.5 mg/2 mL suspension for nebulization 0.5 mg inhalation DAILY Qty: 60 12RF ipratropium-albuterol 0.5 mg-3 mg(2.5 mg base)/3 mL solution for nebulization 3 ml inhalation .bid & PRN (Reason: wheezing) Qty: 180 12RF Spiriva Respimat 2.5 mcg/actuation mist 2 puff inhalation DAILY Qty: 1 12RF Incruse Ellipta 62.5 mcg/actuation blister with device 1 inh inhalation DAILY Qty: 30 12RF calcium carbonate [Oyster Shell Calcium 500] 1.25 GM tablet 0.5 gm PO DAILY 0RF Discharge Instructions Instructions: Facial Fracture (DC), Laceration Repair With Stitches ED Additional Instructions: You were seen in the emergency department today for evaluation after a fall. In our department a full physical examination performed, and had laboratory studies that were reassuring, though they do demonstrate some changes associated with your chronic COPD. You had CT scans that did not show any bleeding in your brain, nor fractures in your neck, but you do have fractures in your face and nose. There was no evidence of severe displacement, shortness of breath, nor entrapment of your entrapment of your extraocular muscles, and you do not require emergency surgery. You can follow-up with the ear nose and throat doctor to discuss management of these fractures. You have a laceration with sutures that were placed, they will need to be removed in 5 to 7 days, there are 5 sutures on the outside that need to come out. Please use Tylenol as needed for pain, and ice for swelling. You can clean the area gently, avoid soaking and scrubbing. Please use bacitracin or other rzps-goe-miiawmy antibiotic ointment at least once per day and keep the area under bandage to keep it clean and dry. Please follow-up with your primary care provider in the next few days to discuss this visit and any symptoms that change, worsen, or persist. Thank you for allowing us to be part of your care. Referrals: Sami Cummins MD [ [facility]YSICIAN, ENT Surgical] - 1 week Discharge Data Discharge Date/Time-TO BE ENTERED AT DEPARTURE: 06/26/25 17:31 HPI General Mode of arrival: ambulatory. Date/Time Provider Initiated Documentation: 06/26/25 13:40. Limitations to Documentation: no limitations. Information obtained by: patient, family and old records reviewed. 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 The patient reports that she was in her normal state of health, was walking through her home, states that she is not sure why she fell, does not think she tripped over anything or lost her balance, but states next thing I knew I had hit my left eye on a CD tower, and I was on the ground. She does not believe that she lost consciousness, states that she did not have any dizziness, chest pain, or syncope preceding this fall. She states that she is primarily having pain in her face and forehead. Does not take blood thinners, does not have any reported weakness, numbness, and did not take any medications prior to arrival at our facility. Related Data Home Medications ?Medication ?Instructions ?Recorded ?Confirmed calcium carbonate (Oyster Shell 0.5 gm PO DAILY 01/07/18 06/26/25 Calcium 500) mometasone-formoterol HFA 100 2 puff inhalation BID #1 inh 06/07/21 06/26/25 mcg-5 mcg/actuation aerosol inhaler (Dulera) Oxygen 09/20/22 06/26/25 cyanocobalamin (vitamin B-12) 2,000 mcg PO DAILY #100 ea 07/09/23 06/26/25 2,000 mcg lozenges cholecalciferol (vitamin D3) 1 tab PO DAILY 11/04/23 06/26/25 fluoxetine 10 mg capsule 10 mg PO DAILY 11/04/23 06/26/25 propylene glycol [Systane Balance] 1 drp ophthalmic (eye) DIRECTED 11/04/23 06/26/25 mirtazapine 15 mg tablet 15 mg PO DAILY 03/04/24 06/26/25 budesonide 0.5 mg/2 mL suspension 0.5 mg (2 mL) inhalation DAILY #60 12/09/24 06/26/25 for nebulization mL ipratropium 0.5 mg-albuterol 3 mg 3 ml inhalation .bid & PRN 12/09/24 06/26/25 (2.5 mg base)/3 mL nebulization wheezing #180 mL soln tiotropium bromide 2.5 2 puff inhalation DAILY #1 inh 02/08/25 06/26/25 mcg/actuation mist for inhalation (Spiriva Respimat) umeclidinium 62.5 mcg/actuation 1 inh inhalation DAILY #30 ea 04/26/25 06/26/25 blister powder for inhalation (Incruse Ellipta) Previous Rx's ?Medication ?Instructions ?Recorded calcium carbonate (Oyster Shell 0.5 gm PO DAILY 01/07/18 Calcium 500) mometasone-formoterol HFA 100 2 puff inhalation BID #1 inh 06/07/21 mcg-5 mcg/actuation aerosol inhaler (Dulera) cyanocobalamin (vitamin B-12) 2,000 mcg PO DAILY #100 ea 07/09/23 2,000 mcg lozenges budesonide 0.5 mg/2 mL suspension 0.5 mg (2 mL) inhalation DAILY #60 12/09/24 for nebulization mL ipratropium 0.5 mg-albuterol 3 mg 3 ml inhalation .bid & PRN 12/09/24 (2.5 mg base)/3 mL nebulization wheezing #180 mL soln tiotropium bromide 2.5 2 puff inhalation DAILY #1 inh 02/08/25 mcg/actuation mist for inhalation (Spiriva Respimat) umeclidinium 62.5 mcg/actuation 1 inh inhalation DAILY #30 ea 04/26/25 blister powder for inhalation (Incruse Ellipta) Allergies Allergy/AdvReac Type Severity Reaction Status Date / Time Sulfa (Sulfonamide Allergy Intermediate Hives Unverified 06/26/25 13:50 Antibiotics) General Stated Complaint: AMS/LOC MOIRA: 3 Exam Narrative Exam Narrative: Gen: Awake and alert, in no apparent distress HEENT: Non-icteric sclera, PERRL, EOMs are full and without evidence of entrapment. The patient does have ecchymosis and swelling of the left periorbital region, and has a 1.5 cm laceration over the left eyebrow, hemostatic. She has swelling and tenderness over the bridge of the nose without significant deformity, no midface instability or septal hematoma, she does have evidence of dried blood in her bilateral nares. Teeth and tongue uninjured Neck: Supple, no posterior tenderness to palpation, no C-spine step-offs Lungs: No apparent respiratory distress, normal respiratory effort. CV: Appears well perfused, heart with regular rate and rhythm, strong distal pulses Abdomen: Non-distended, soft, nontender MSK: Moves 4 extremities without apparent limitation in ROM, no peripheral edema, no deformity, tenderness, or external traumatic findings Skin: Visualized skin without rashes, cyanosis. Neuro: Normal Gait, full and symmetrical strength x 4 extremities, no sensory deficits, no facial asymmetry. Speaks in full, clear sentences. Psych: Appropriate for situation. Course Vital Signs Vital signs: Vital Signs Temperature 36.9 C 06/26/25 13:46 Pulse 101 H 06/26/25 13:46 Respiratory Rate 20 06/26/25 13:46 Blood Pressure 179/66 H 06/26/25 13:46 Pulse Oximetry 97 06/26/25 13:46 Temperature 36.9 C 06/26/25 13:46 Pulse 101 H 06/26/25 13:46 Respiratory Rate 20 06/26/25 13:46 Blood Pressure 179/66 H 06/26/25 13:46 Blood Pressure Position Sitting 06/26/25 13:46 Pulse Oximetry 97 06/26/25 13:46 Oxygen Delivery Method Room Air 06/26/25 13:46 Oxygen Flow Rate 0 06/26/25 13:46 Procedure Laceration Laceration 1: Date of Procedure: 06/26/25 Time of procedure: 16:53 Provider that performed the procedure: Munira Vallejo Standard Time Out Performed: No Patient Consented: Verbally Site: face Side (If applicable): left Description: linear Depth: simple, single layer Local anesthetic: Lidocaine 1%, Bupivicaine 0.25% and with Epi Amount of anesthesia used (mL): 5 Pre-repair:: wound explored, irrigated extensively and deep structures intact Skin layer closed with: other (Prolene) Suture size: 6-0 Number of sutures:: 5 Technique: simple, interrupted Subcutaneous layer closed with: chromic gut Suture size: 5-0 Number of sutures:: 4 Technique:: running Complications: None Medical Decision Making This is a 79-year-old female patient presenting for evaluation after a fall. Differential includes but is not limited to intracranial hemorrhage, skull fracture, facial bone fracture, C-spine fracture. No evidence of neurodeficit to significantly increase my concern for spinal cord injury. The patient is not sure what made her fall, she denies syncope, dizziness or lightheadedness, or other preceding symptoms, but I certainly considered arrhythmia, ACS, dehydration, syncope/vasovagal syndrome, metabolic derangement, kidney injury, etc. I will obtain a CT scan of the head, facial bones, and C-spine. I will obtain labs to include CBC, CMP, magnesium, troponin. I obtained an EKG, which shows a sinus rhythm without evidence of ischemia or significant changes compared to priors. I will update the patient's tetanus booster, which has not been done since 2008. - I reviewed the patient's CT scans, which show bilateral nasal bone fractures, without significant displacement, a left maxillary sinus fracture and orbital floor fracture without evidence of extraocular muscle entrapment. No evidence for intracranial hemorrhage, nor C-spine fracture. I independently interpreted the laboratory studies, which show no significant leukocytosis, anemia, or thrombocytopenia. The chemistry panel is without evidence of electrolyte abnormality, kidney dysfunction, or liver injury. The patient does have a markedly elevated bicarb greater than 45, which has been gradually increasing on her outpatient labs and is likely due to her end-stage COPD. She is not in respiratory distress and is oxygenating appropriately on her baseline nasal cannula oxygen. Troponin was negative. Laceration repair completed as noted above with excellent cosmetic outcome achieved. The patient tolerated this procedure well and has not had significant discomfort or distress. Her injuries are such that she will not require emergent surgical intervention, nor transfer to a trauma center, but I we will refer her to ear nose and throat for follow-up and ongoing workup and management of her injuries. I counseled the patient on laceration care and suture removal in 5 to 7 days. At this time, the patient has had a full medical evaluation and is safe for discharge to home. They are hemodynamically stable, ambulatory, and tolerating PO. They are understanding of the follow-up plan and return precautions. They left our facility without incident. Munira Vallejo MD [facility] All Active Problems (Updated 06/26/25 @ 17:11 by Munira Vallejo MD) Forehead laceration (Acute) Fall (Acute) Fracture of left orbital floor (Acute) Fracture of left maxillary sinus (Acute) Fracture of nasal bones (Acute) Fracture of right olecranon process (Acute 12/06/24) Closed fracture of right proximal humerus (Acute 12/06/24) DNR (do not resuscitate) (Acute) COLST: Completed 04/23/2024: DNI/DNI, do transfer to hospital for eval. Use abx and IV fluids. NO feeding tube. HF O2 OK, no Bipap (hate masks) and no intubation. Counseling regarding advance care planning and goals of care (Acute) Palliative care patient (Acute) Anxiety and depression (Chronic) Mild memory disturbance (Acute) Pulmonary cachexia due to COPD (Acute) Chronic respiratory failure with hypoxia, on home O2 therapy (Acute) Burning mouth syndrome (Acute) Vitamin B deficiency (Acute) Pyridoxal deficiency (Acute) B12 deficiency (Acute) Thrush (Acute) Cat scratch of right forearm (Acute) Pulmonary hypertension (Acute) Unexplained weight loss (Acute) Dysphagia (Acute) Hypokalemia due to excessive gastrointestinal loss of potassium (Acute) from CT contrast material Abnormal CT scan, esophagus (Acute) Cachexia (Acute) URI (upper respiratory infection) (Acute) Weight loss (Acute) Ataxia (Acute) Respiratory failure with hypoxia (Acute) Bronchiectasis (Acute) COPD (chronic obstructive pulmonary disease) (Chronic) Bronchiolitis obliterans (Acute) Recurrent urinary tract infection (Acute) Closed trimalleolar fracture of right ankle (Acute) Trochanteric bursitis, left hip (Acute 05/15/17) Adhesive capsulitis of left shoulder (Acute 05/15/17) Trochanteric bursitis of left hip (Chronic) Medical History Pain of left hip joint Pain, joint, shoulder, left Senile asthenia Abdominal pain Abnormal weight loss Amnesia Intervertebral disc disorder Atrophic vaginitis Acute upper respiratory infection Essential hypertension Anxiety Hypo-osmolality and hyponatremia Hip pain Abnormal vaginal Pap smear Acute hyponatremia Breast cancer Lumbar disc disease Osteoporosis Osteoarthritis Insomnia Widened pulse pressure Carotid artery stenosis HTN (hypertension) Frailty Hyperlipidemia Prediabetes Flank pain UTI (urinary tract infection) Vaginal atrophy Surgical History S/P lumbar laminectomy History of lumpectomy of right breast followed by radiation for breast cancer Family History Mother Diabetes Father Pancreatic cancer Maternal Grandmother Diabetes Paternal Grandmother Diabetes Brother Diabetes Sister Heart disease Dementia Lung disorder Social History Smoking/Tobacco Use Status: Never Smoking risk assessment performed?: Yes Alcohol Intake: never Drug use: Never Substance use type: does not use Current gender identity: female Do you feel safe at home: Yes Do you feel safe in your relationship?: Yes
--- NOTE | 2025-06-26 16:00 | DI.CT_ITS ---
Exam(s) CT HEAD CERV SPINE FACIAL WO EXAM: CT HEAD CERV SPINE FACIAL WO CLINICAL HISTORY: fall, R. eye lac with swelling, nasalbridge pain. TECHNIQUE: Imaging Protocol: Axial computed tomography images with coronal and sagittal reformatted images were created and reviewed COMPARISON: CT CT BRAIN NECK CTA from 09/06/2022 FINDINGS: CT Head: Ventricles and Extra axial spaces: Normal in size and morphology for the patient's age. Hemorrhage: None. Cerebral parenchyma: No evidence of acute hemorrhage or acute infarct. Midline shift: None. Brainstem/Cerebellum: Normal. Calvarium: Normal. CT Face: Facial Bones: Minimally displaced nasal fractures. Surrounding soft tissue air. Mildly depressed fracture of the anterior wall of the left maxillary sinus. Fracture of the left inferior orbital wall was present on the previous exam. No entrapment of the inferior rectus muscle. Sinuses and Mastoids: Fluid/hemorrhage within left maxillary sinus. Globes, extraocular muscles, optic nerves and retrobulbar fat: Normal. Upper aerodigestive tract: Normal. Mandible and bilateral temporomandibular joints: Normal. Soft tissues: Soft tissue swelling and soft tissue air around the nose and left cheek. Soft tissue thickening around the superior aspect of the left orbit. CT Cervical Spine: Bones: No acute fracture or subluxation. Degenerative changes at C5-6 and C6- 7. Soft Tissues: Unremarkable. Lung Apices: Clear. IMPRESSION: 1. Head CT: No acute intracranial process. 2. C-spine CT: No acute fracture or subluxation in the cervical spine. 3. Facial CT: Acute fracture of the anterior wall of the left maxillary sinus with fluid and hemorrhage within the left maxillary sinus. Minimally depressed nasal fractures. The left inferior orbital floor fracture is old. The preliminary [facility] report was reviewed. RADIATION DOSE DELIVERED: Total DLP DATA REPOSITORY: All CT scans at this facility are submitted to the National Radiology Data Registry (NRDR) Dose Index Registry (DIR) with the [employer] ([employer]). RADIATION OPTIMIZATION: All CT scans at this facility use at least one of these dose optimization techniques: automated exposure control; mA and/or kV adjustment per patient size (includes targeted exams where dose is matched to clinical indication); or iterative reconstruction.
--- NOTE | 2025-06-26 16:13 | DI.[facility]_ITS ---
PROCEDURE INFORMATION: Exam: CT Head Without Contrast Exam date and time: 06/26/2025 3:53 PM Age: 79 years old Clinical indication: Injury or trauma; Other: Fall, R. Eye lac with swelling, nasalbridge pain TECHNIQUE: Imaging protocol: Computed tomography of the head without contrast. COMPARISON: CT BRAIN NECK CTA 09/06/2022 10:14 PM FINDINGS: Brain: Age related diffuse parenchymal volume loss. No recent infarct, intracranial bleed or mass effect. Cerebral ventricles: Ex vacuo dilatation of the ventricles. Paranasal sinuses: Visualized sinuses are unremarkable. No fluid levels. Mastoid air cells: Visualized mastoid air cells are well aerated. Orbital cavities: Post bilateral cataract surgery. Bones: Unremarkable. No acute fracture. Soft tissues: Unremarkable. IMPRESSION: No acute intracranial posttraumatic changes. PROCEDURE INFORMATION: Exam: CT Maxillofacial Without Contrast Exam date and time: 06/26/2025 3:53 PM Age: 79 years old Clinical indication: Injury or trauma; Other: Fall, R. Eye lac with swelling, nasalbridge pain TECHNIQUE: Imaging protocol: Computed tomography of the face without contrast. COMPARISON: CT BRAIN NECK CTA 09/06/2022 10:14 PM FINDINGS: Paranasal sinuses: There is comminuted minimally depressed fracture of the anterior wall of the left maxillary sinus. Left maxillary sinus blood consistent with hemosinus. Orbital cavities: There is a minimally displaced fracture of the inferior wall of the left orbit involving the infraorbital canal with mild amount of extraconal fat herniation. There is no extraocular muscle entrapment. Bones: Comminuted nondisplaced fracture of bilateral nasal bones. Soft tissues: There is subcutaneous emphysema overlying the nose and left cheek. Soft tissue defect overlying the nose suggestive of laceration. IMPRESSION: Fractures of the anterior wall of the left maxillary sinus, bilateral nasal bones and inferior wall of the left orbit with no extraocular muscle entrapment. PROCEDURE INFORMATION: Exam: CT Cervical Spine Without Contrast Exam date and time: 06/26/2025 3:53 PM Age: 79 years old Clinical indication: Injury or trauma; Other: Fall, R. Eye lac with swelling, nasalbridge pain TECHNIQUE: Imaging protocol: Computed tomography of the cervical spine without contrast. COMPARISON: CT BRAIN NECK CTA 09/06/2022 10:14 PM FINDINGS: Bones: No acute fracture, compression deformity or spondylolisthesis. The cervical spine demonstrates mild degenerative changes at multiple levels. Lungs: Lung apices are normal. Thyroid: Calcified left thyroid nodule measuring 8 mm and 9 mm right thyroid nodule. Vasculature: There is mild atherosclerotic calcification of the carotid arteries. Soft tissues: Unremarkable. IMPRESSION: No acute posttraumatic changes in the cervical spine. Dictated and Authenticated by: Grover Otero MD. Orderin [facility]. Oral Lombardo MD
[2025-06-26 16:19] LABS: Abs Immature Grans 0.03 10^3/uL (0.0-0.06); HCT 38.1 % (36.0-46.0); HGB 11.4 g/dL (11.2-15.7); Immature Grans % 0.3 %; MCH 29.5 pg (27.0-33.0); MCHC 29.9 % (32.0-36.0); MCV 98 fL (80-95); MPV 10.2 fL (8.0-11.0); Platelet Count 198 10^3/uL (130-400); RBC 3.87 10^6/uL (3.93-5.22); RDW 11.3 % (11.7-14.6); RDW-SD 40.6 fL; WBC 10.24 10^3/uL (4.4-10.8)
[2025-06-26 16:40] LABS: INR 1.0 (0.9-1.1); Prothrombin Time 9.7 sec (9.1-11.1)
[2025-06-26 16:51] LABS: ALT 21 U/L (14-59); AST 20 U/L (15-37); Albumin 4.0 g/dL (3.4-5.0); Alkaline Phosphatase 71 U/L (46-116); BUN 12 mg/dL (7-18); Bilirubin, Total 0.3 mg/dL (0.2-1.0); Calcium 9.7 mg/dL (8.5-10.1); Chloride 96 mmol/L (98-107); Estimated GFR 91.25 (mL/min/1.73m2); Glucose 153 mg/dL (74-106); Magnesium 2.0 mg/dL (1.8-2.4); Potassium 4.1 mmol/L (3.5-5.1); Sodium 142 mmol/L (136-145); Total Protein 7.6 g/dL (6.4-8.2); Troponin I 11 ng/L (<or=51)
[2025-06-26 17:03] LABS: Anion Gap 0.99999 mmol/L (3-11); CO2 > 45.0 mmol/L (21.0-32.0)
[2025-06-26 17:18] VITALS: BP 179/66; PULSE 101; RESP 15; RESP 20; TEMP 36.9; O2SAT 97
[2025-06-26] MEDS: Diph,Pertuss(Acell),Tet Vac/Pf 0.5 ML SYR IM (17:22)
[2025-06-26] MEDS: Lidocaine 2% Multi-Dose W/EPI 1/100,000 20 ML VIAL IJ (17:22)
== END 2025-06-26 17:31 | disposition home or self-care (01) ==
PROVIDERS: Emergency Provider Emergency Medicine; PCP Physician Assistant Medical
DX: S02.2XXA Fracture of nasal bones, initial encounter for closed fracture (principal); S02.32XA Fracture of orbital floor, left side, initial encounter for closed fracture; S02.40DA Maxillary fracture, left side, initial encounter for closed fracture; S01.81XA Laceration without foreign body of other part of head, initial encounter; W19.XXXA Unspecified fall, initial encounter
CPT/HCPCS: 99285; 99283; 90471; 12011; 80053; 90715; 93005; 70450; 70486; 72125; 83735; 84484; 85025; 85610; 93010; J2004

== ENCOUNTER → 2025-07-27 13:00 | Outpatient (BNVA) | payer MEDICARE, SELFPAY | PROVIDERS: PCP Physician Assistant Medical; Referring Provider Physician Assistant Medical; Visit Provider Physician Assistant Surgical | DX: J44.9 Chronic obstructive pulmonary disease, unspecified (principal); J47.9 Bronchiectasis, uncomplicated; J96.91 Respiratory failure, unspecified with hypoxia; I27.20 Pulmonary hypertension, unspecified; Z99.81 Dependence on supplemental oxygen; Z29.11 Encounter for prophylactic immunotherapy for respiratory syncytial virus (RSV) | CPT/HCPCS: 90471; 90679; 99214 ==